=== PATIENT | female | born 1935 ===

== ENCOUNTER 2017-02-08 15:34 | Emergency (ER) | payer MEDICARE, MEDICAID ==
[2017-02-08 15:34] VITALS: BMI 26.6
[2017-02-08 15:47] VITALS: BP 176/71; PULSE 89; RESP 17; TEMP 100.1; O2SAT 94
[2017-02-08] MEDS ORDERED: Amoxicillin-Clav 875-125 mg Tab PO STA (16:19)
--- NOTE | 2017-02-08 16:34 | ED PDOC ---
Arrival/HPI - General Chief Complaint: Fever Time Seen by Provider: 02/08/17 15:47 Historian: Patient - History of Present Illness Narrative History of Present Illness (Text): 02/08/17 16:29 81yo female with PMhx of hypertension and left leg ulcer referred to ED by her Registered Pharmacy Technician. According to the patient she have had ulcer for years and started seeing a Registered Pharmacy Technician 3months ago. States she had a home visiting nurse today, who called her Registered Pharmacy Technician because of the redness of her leg and fever. She however declined pain to the leg and swelling. States she only came in because the visiting nurse wants her to come, but requesting to go home. Past Medical History - Provider Review Nursing Documentation Reviewed: Yes - Cardiac Hx Cardiac Arrhythmia: Yes (TACHYCARDIA) Hx Hypertension: Yes - Pulmonary Hx Respiratory Disorders: No - Neurological Hx Neurological Disorder: No - HEENT Hx HEENT Disorder: No - Renal Hx Renal Disorder: No - Endocrine/Metabolic Hx Endocrine Disorders: Yes Other/Comment: THYROID DISEASE - Hematological/Oncological Hx Blood Disorders: No - Integumentary Hx Cellulitis: Yes - Musculoskeletal/Rheumatological Hx Musculoskeletal Disorders: No - Gastrointestinal Hx Gastrointestinal Disorders: No - Genitourinary/Gynecological Hx Genitourinary Disorders: No - Psychiatric Hx Psychophysiologic Disorder: Yes Hx Anxiety: Yes Hx Substance Use: No - Surgical History Other/Comment: BX OF L FOOT Family/Social History - Physician Review Nursing Documentation Reviewed: Yes Family/Social History: Unknown Family HX Smoking Status: Never Smoked Hx Alcohol Use: No Hx Substance Use: No Allergies/Home Meds Allergies/Adverse Reactions: Allergies No Known Allergies Allergy (Verified 02/08/17 15:39) Home Medications: Home Meds Medication Instructions Recorded Confirmed ALPRAZolam [Xanax] 1 tab PO DAILY 02/08/17 02/08/17 Apremilast [Otezla] 30 mg PO DAILY 02/08/17 02/08/17 Aspirin [Ecotrin] 81 mg PO DAILY 02/08/17 02/08/17 Cholecalciferol (Vitamin D3) 1 tab PO DAILY 02/08/17 02/08/17 [Vitamin D3] Colesevelam HCl [Welchol] 1 tab PO DAILY 02/08/17 02/08/17 Furosemide [Lasix] 40 mg PO MWF 02/08/17 02/08/17 Gabapentin [Neurontin] 300 mg PO TID 02/08/17 02/08/17 Levothyroxine [Synthroid] 50 mcg PO DAILY 02/08/17 02/08/17 Metoprolol Tartrate [Lopressor] 100 mg PO DAILY 02/08/17 02/08/17 Mupirocin [Centany] 1 apful TOP BID 02/08/17 02/08/17 Valsartan/Hydrochlorothiazide 1 tab PO DAILY 02/08/17 02/08/17 [Valsartan-Hctz 160-25 mg Tab] Review of Systems - Physician Review All systems were reviewed & negative as marked: Yes - Review of Systems Constitutional: Fevers Eyes: Normal ENT: Normal Respiratory: Normal Cardiovascular: Normal Gastrointestinal: Normal Genitourinary Female: Normal Musculoskeletal: Normal, Other (Left leg redness) Skin: Normal Neurological: Normal Endocrine: Normal Hemo/Lymphatic: Normal Psychiatric: Normal Physical Exam Vital Signs Reviewed: Yes Vital Signs Temp Pulse Resp BP Pulse Ox 02/08/17 16:34 100.1 F H 02/08/17 15:45 100.1 F H 89 17 176/71 H 94 L Temperature: Febrile Blood Pressure: Normal Pulse: Regular Respiratory Rate: Normal Appearance: Positive for: Well-Appearing, Non-Toxic, Comfortable Pain Distress: None Mental Status: Positive for: Alert and Oriented X 3 - Systems Exam Head: Present: Atraumatic, Normocephalic Pupils: Present: PERRL Extroacular Muscles: Present: EOMI Conjunctiva: Present: Normal Mouth: Present: Moist Mucous Membranes Neck: Present: Normal Range of Motion Respiratory/Chest: Present: Clear to Auscultation, Good Air Exchange. No: Respiratory Distress, Accessory Muscle Use Cardiovascular: Present: Regular Rate and Rhythm, Normal S1, S2. No: Murmurs Abdomen: Present: Normal Bowel Sounds. No: Tenderness, Distention, Peritoneal Signs Back: Present: Normal Inspection Upper Extremity: Present: Normal Inspection. No: Cyanosis, Edema Lower Extremity: Present: Erythema (Noted on left lower leg prior to dressing). No: Edema (Unknown dressing in place), CALF TENDERNESS, NORMAL PULSES ( Unknown dressing in place), Tenderness, Swelling Neurological: Present: GCS=15, CN II-XII Intact, Speech Normal Skin: Present: Warm, Dry, Normal Color. No: Rashes Psychiatric: Present: Alert, Oriented x 3, Normal Insight, Normal Concentration Medical Decision Making ED Course and Treatment: 02/08/17 16:36 PT presented for stated history. she was febrile on presentation, but appear comfortable and nontoxic. On arrival, patient refused to change her clothes, stating she wants to go home. The who was by the bedside states he have a heart condition and do not wish to stay by himself. I explained the importance of patient getting IV antibiotic to treat her cellulitis. The risk of having osteomylitis which can lead to amputation of her leg.She states she understands this risk but still insists on signing out AMA. Stating she have appointment with Dr. Spear on Saturday. RN Ann interpreted for the patient. Case was DW Dr. Leon who was covering Dr. Spear. He states he spoke with the visiting nurse and referred the patient to the ED. [facility] patient was seen by Dr. Spear on 02/06/17 and given a prescription for antibiotics but she never filled it. He states if patient refused to be admitted she should be DC home with a rx of Augmentin. [facility] patient have appointment with Dr. Spear on Saturday. She also have a home visiting nurse that visits 3days a week. 02/08/17 16:50 I called in Augmentin 875mg for the patient to [facility]. - Medication Orders Current Medication Orders: Discontinued Medications Acetaminophen (Tylenol 325mg Tab) 650 mg PO STAT STA Stop: 02/08/17 16:20 Last Admin: 02/08/17 16:34 Dose: 650 mg Amoxicillin/Clavulanate Potassium (Augmentin 875 Mg-125 Mg Tab) 1 tab PO STAT STA PRN Reason: Protocol Stop: 02/08/17 16:20 Last Admin: 02/08/17 16:35 Dose: 1 tab Disposition/Present on Arrival - Present on Arrival Any Indicators Present on Arrival: No History of DVT/PE: No History of Uncontrolled Diabetes: No Urinary Catheter: No History of Decub. Ulcer: No History Surgical Site Infection Following: None - Disposition Have Diagnosis and Disposition been Completed?: Yes Diagnosis: Cellulitis Disposition: AGAINST MEDICAL ADVICE Disposition Time: 16:50 Condition: FAIR Discharge Instructions (ExitCare): Cellulitis (ED) Referrals: Dworkin,Estelita K, DPM [Primary Care Provider] - Follow up with primary
== END 2017-02-08 17:14 | disposition left against medical advice (07) ==
LOC: ED 15:34
DX: L03.116 Cellulitis of left lower limb (principal); I10 Essential (primary) hypertension

== ENCOUNTER 2017-02-11 16:19 | Inpatient (IN) | payer MEDICARE, MEDICAID ==
[2017-02-11 16:36] VITALS: BMI 33.6
[2017-02-11 17:08] LABS: ADD MANUAL DIFF? NO
[2017-02-11 17:16] LABS: BASO # 0.02 K/mm3 (0.0-2.0); BASO % 0.2 % (0.0-3.0); EOS # 0.1 (0.0-0.7); EOS % 1.2 % (1.5-5.0); GRAN # 7.27 (1.4-6.5); GRAN % 68.8 % (50.0-68.0); HEMATOCRIT 38.5 % (36.0-48.0); LYMPH # 2.3 (1.2-3.4); MEAN CELL VOLUME 87.5 fL (80.0-105.0); MEAN CORPUSCULAR HEMOGLOBIN 29.5 pg (25.0-35.0); MEAN CORPUSCULAR HGB CONC 33.8 g/dl (31.0-37.0); MEAN PLATELET VOLUME 8.5 fl (7.0-11.0); MONO # 0.8 (0.1-0.6); MONO % 7.8 % (1.0-6.0); PLATELET COUNT 353 10^3/uL (120.0-450.0); RED CELL DISTRIBUTION WIDTH 14.1 % (11.5-14.5); WHITE BLOOD COUNT 10.6 10^3/ul (4.5-11.0)
[2017-02-11 17:24] LABS: ALB/GLOB RATIO 0.9 (1.1-1.8); ALKALINE PHOSPHATASE 88 U/L (38-133); ALT/SGPT 32 U/L (7-56); AST/SGOT 35 U/L (15-39); BILIRUBIN,TOTAL 0.6 mg/dL (0.2-1.3); BLOOD UREA NITROGEN 23 mg/dL (7-21); CALCIUM 9.5 mg/dL (8.4-10.5); CARBON DIOXIDE 32 mmol/L (21-33); CHLORIDE 92 mmol/L (98-107); GFR AFRICAN-AMERICAN > 60; GLUCOSE,RANDOM 99 mg/dL (70-110); INR 0.97 (0.93-1.08); PARTIAL THROMBOPLASTIN TIME 30.5 Seconds (23.7-30.8); POTASSIUM 3.5 mmol/L (3.6-5.0); SODIUM 132 mmol/L (132-148); TOTAL PROTEIN 8.3 g/dL (5.8-8.3)
[2017-02-11] MEDS ORDERED: Vancomycin 1gm in NS 250ml 1 GM/250 ML BAG IVPB STA (17:38)
[2017-02-11] MEDS ORDERED: Magnesium Sulfate 1 gm in D5W 1 GM/100 ML BAG IVPB ONE (18:00)
[2017-02-11] MEDS ORDERED: Potassium Chloride 20 mEq ER Tab PO STA (18:00)
--- NOTE | 2017-02-11 19:30 | ED PDOC ---
Arrival/HPI - General Chief Complaint: Medical Clearance Time Seen by Provider: 02/11/17 16:45 Historian: Patient - History of Present Illness Narrative History of Present Illness (Text): 02/11/17 16:45 A 81 year old female sent into the emergency department for admission for left lower extremity cellulitis. Patient complaints of redness to the left lower extremity for the past few days. Patient was seen here on 02/08/17 but left against medical advice. She denies any fever, or other complaints at this time. Supplier Manager: Dr. Spear Time/Duration: Other Symptom Onset: Sudden Symptom Course: Unchanged Quality: Other Activities at Onset: Rest Context: Home Past Medical History - Provider Review Nursing Documentation Reviewed: Yes - Cardiac Hx Cardiac Arrhythmia: Yes (TACHYCARDIA) Hx Hypertension: Yes - Pulmonary Hx Respiratory Disorders: No - Neurological Hx Neurological Disorder: No - HEENT Hx HEENT Disorder: No - Renal Hx Renal Disorder: No - Endocrine/Metabolic Hx Endocrine Disorders: Yes Other/Comment: THYROID DISEASE - Hematological/Oncological Hx Blood Disorders: No - Integumentary Hx Cellulitis: Yes - Musculoskeletal/Rheumatological Hx Musculoskeletal Disorders: No - Gastrointestinal Hx Gastrointestinal Disorders: No - Genitourinary/Gynecological Hx Genitourinary Disorders: No - Psychiatric Hx Psychophysiologic Disorder: Yes Hx Anxiety: Yes Hx Substance Use: No - Surgical History Other/Comment: BX OF L FOOT Family/Social History - Physician Review Nursing Documentation Reviewed: Yes Family/Social History: Unknown Family HX Smoking Status: Never Smoked Hx Alcohol Use: No Hx Substance Use: No Allergies/Home Meds Allergies/Adverse Reactions: Allergies No Known Allergies Allergy (Verified 02/08/17 15:39) Home Medications: Home Meds Medication Instructions Recorded Confirmed ALPRAZolam [Xanax] 1 tab PO DAILY 02/08/17 02/12/17 Apremilast [Otezla] 30 mg PO DAILY 02/08/17 02/12/17 Aspirin [Ecotrin] 81 mg PO DAILY 02/08/17 02/12/17 Cholecalciferol (Vitamin D3) 1 tab PO DAILY 02/08/17 02/12/17 [Vitamin D3] Colesevelam HCl [Welchol] 1 tab PO DAILY 02/08/17 02/12/17 Furosemide [Lasix] 40 mg PO DAILY 02/08/17 02/12/17 Gabapentin [Neurontin] 300 mg PO TID 02/08/17 02/12/17 Levothyroxine [Synthroid] 50 mcg PO DAILY 02/08/17 02/12/17 Metoprolol Tartrate [Lopressor] 100 mg PO DAILY 02/08/17 02/12/17 Mupirocin [Centany] 1 apful TOP BID 02/08/17 02/12/17 Valsartan/Hydrochlorothiazide 1 tab PO DAILY 02/08/17 02/12/17 [Valsartan-Hctz 160-25 mg Tab] Physical Exam - Physical Exam Narrative Physical Exam (Text): - Review of Systems Constitutional: Normal. absent: Fatigue, Weight Change, Fevers Eyes: Normal ENT: Normal Respiratory: Normal absent: SOB, Cough, Sputum Cardiovascular: Normal absent: Chest pain, Palpitations, Syncope Gastrointestinal: Normal absent: Abdominal pain, Diarrhea, Nausea, Vomiting Genitourinary: Normal. absent: Dysuria, Frequency, Hematuria Musculoskeletal: Normal. absent: Arthralgias, Back Pain, Neck Pain Skin: redness to the left lower extremity. Neurological: Normal absent: Focal Weakness Endocrine: Normal Hemo/Lymphatic: Normal Psychiatric: Normal - Physical exam Patient appears age appropriate, speaking full sentences without difficulty - Systems Exam Head: Present: Atraumatic, Normocephalic Pupils: Present: PERRL Extraocular Muscles: Present: EOMI Conjunctiva: Present: Normal Mouth: Present: Moist Mucous Membranes Neck: Present: Normal Range of Motion. No: MIDLINE TENDERNESS, Paraspinal Tenderness Respiratory/Chest: Present: Clear to Auscultation, Good Air Exchange. No: Respiratory Distress, Accessory Muscle Use, Tachypneic Cardiovascular: Present: Regular Rate and Rhythm, Normal S1, S2, Peripheral Pulses Present. No: Murmurs Abdomen: Present: Normal Bowel Sounds, No: Tenderness, Peritoneal Signs, Rebound, Guarding, Distention Back: Present: Normal Inspection. No: Midline Tenderness, Paraspinal Tenderness Upper Extremity: Present: Normal Inspection. No: Cyanosis, Edema Lower Extremity: Present: poor healing ulcer to the left lower extremity with swelling and erythema. Area is warm to the touch but no tenderness. No: Edema Neurological: Present: GCS=15, Speech Normal, cranial nerves II through XII fully intact with no cerebellar abnormality, neuro-sensory fully intact. No focal neurological deficits. Skin: Present: Warm, Dry, Normal Color. No: Rashes Lymphatic: Present: OX3, NI, NC Psychiatric: Present: Alert, Oriented x 3, Normal Insight, Normal Concentration Vital Signs Reviewed: Yes Vital Signs Temp Pulse Resp BP Pulse Ox 02/11/17 18:57 75 18 146/68 95 02/11/17 16:36 97.7 F 77 16 154/78 H 96 Temperature: Afebrile Blood Pressure: Hypertensive Pulse: Regular Respiratory Rate: Normal Appearance: Positive for: Well-Appearing, Non-Toxic, Comfortable Pain Distress: None Mental Status: Positive for: Alert and Oriented X 3 Medical Decision Making ED Course and Treatment: 02/11/17 16:45 Impression: A 81 year old female with left lower extremity cellulitis sent in for admission. Differential Diagnosis include but are not limited to: cellulitis Plan: -- Chest X-ray -- Bilateral Lower extremity Duplex ultrasound -- Labs -- Reassess and disposition Progress Notes: 02/11/17 18:[address] Biggs, who is aware and accepts the patient under her services. I have discussed the results and plan with the patient, who expresses understanding. Patient given the opportunity to ask question, all questions were answered and there is agreement with the plan to be admitted to the hospital. 02/11/17 18:07 Case discussed with the oxygen equipment technician, who states duplex is negative for DVT bilaterally. - Critical Care Critical Care Minutes: 30 minutes - Lab Interpretations Lab Results: 02/11/17 16:58 02/11/17 16:58 Lab Results 02/11/17 16:58: Sodium 132, Potassium 3.5 L, Chloride 92 L, Carbon Dioxide 32, Anion Gap 12, BUN 23 H, Creatinine 0.9, Est GFR ( Amer) > 60, Est GFR ( Non-Af Amer) > 60, Random Glucose 99, Calcium 9.5, Total Bilirubin 0.6, AST 35, ALT 32, Alkaline Phosphatase 88, Total Protein 8.3, Albumin 4.0, Globulin 4.3, Albumin/Globulin Ratio 0.9 L 02/11/17 16:58: PT 10.5, INR 0.97, APTT 30.5 02/11/17 16:58: WBC 10.6, RBC 4.40, Hgb 13.0, Hct 38.5, MCV 87.5, MCH 29.5, MCHC 33.8, RDW 14.1, Plt Count 353, MPV 8.5, Gran % 68.8 H, Lymph % (Auto) 22.0 , [place] % (Auto) 7.8 H, Eos % (Auto) 1.2 L, Baso % (Auto) 0.2, Gran # 7.27 H, Lymph # 2.3, [place] # 0.8 H, Eos # 0.1, Baso # 0.02 I have reviewed the lab results: Yes - RAD Interpretation Radiology Orders: 02/11/17 16:47 CHEST PORTABLE [RAD] Stat 02/11/17 17:36 DUPLEX LOWER EXTRM VEIN BILAT [US] Stat - Medication Orders Current Medication Orders: Alprazolam (Xanax) 1 mg PO HS MARCELA PRN Reason: Protocol Stop: 02/19/17 10:01 Last Admin: 02/13/17 21:16 Dose: 1 mg Re-Assess: Reassess Psych Meds Document 02/13/17 22:16 FC (Rec: 02/13/17 22:19 FC [id number]) Reassess Psych Med Effective Ascorbic Acid (Vitamin C 500 Mg Tab) 500 mg PO DAILY MARCELA Last Admin: 02/13/17 10:33 Dose: 500 mg Aspirin (Ecotrin) 81 mg PO DAILY MARCELA Last Admin: 02/13/17 10:33 Dose: 81 mg Betamethasone/Clotrimazole (Lotrisone) 0 ml TOP BID MARCELA Last Admin: 02/13/17 18:59 Dose: 1 applic Cholecalciferol (Vitamin D) 2,000 iu PO DAILY MARCELA Last Admin: 02/13/17 10:33 Dose: 2,000 iu Enoxaparin Sodium (Lovenox) 40 mg SC DAILY MARCELA PRN Reason: Protocol Last Admin: 02/13/17 10:32 Dose: 40 mg Famotidine (Pepcid) 40 mg PO HS MARCELA Last Admin: 02/13/17 21:16 Dose: 40 mg Furosemide (Lasix) 40 mg PO DAILY MARCELA Last Admin: 02/13/17 10:34 Dose: 40 mg Gabapentin (Neurontin) 300 mg PO TID MARCELA PRN Reason: Protocol Last Admin: 02/13/17 18:59 Dose: 300 mg Re-Assess: Reassess Psych Meds Document 02/13/17 19:59 FC (Rec: 02/13/17 21:15 [id number]) Reassess Psych Med Effective Hydrochlorothiazide (Hydrodiuril) 25 mg PO DAILY [facility] Last Admin: 02/13/17 10:34 Dose: 25 mg Vancomycin HCl (Vancomycin 1gm) 1 gm in 250 mls @ 167 mls/hr IVPB Q12H MARCELA PRN Reason: Protocol Stop: 02/20/17 22:31 Last Admin: 02/13/17 21:31 Dose: 167 mls/hr Piperacillin Sod/Tazobactam Sod (Zosyn 3.375 In Ns 100ml) 100 mls @ 200 mls/hr IVPB Q6 MARCELA PRN Reason: Protocol Stop: 02/21/17 00:01 Last Admin: 02/14/17 05:40 Dose: 200 mls/hr Levothyroxine Sodium (Synthroid) 50 mcg PO DAILY [facility] Last Admin: 02/13/17 10:33 Dose: 50 mcg Losartan Potassium (Cozaar) 100 mg PO DAILY [facility] Last Admin: 02/13/17 10:34 Dose: 100 mg Metoprolol Tartrate (Lopressor) 100 mg PO BRK [facility] Last Admin: 02/13/17 10:33 Dose: 100 mg Multivitamins/Minerals (Therapeutic-M Tab) 1 tab PO DAILY [facility] Last Admin: 02/13/17 10:33 Dose: 1 tab Non-Formulary Medication (Apremilast [Otezla]) 30 mg PO DAILY [facility] Last Admin: 02/13/17 09:22 Dose: Non-Formulary Medication (Colesevelam Hcl [Welchol]) 1 tab PO DAILY [facility] Last Admin: 02/13/17 09:23 Dose: Silver Sulfadiazine (Silvadene 1% 20 Gm) 0 ea TOP DAILY [facility] Last Admin: 02/13/17 10:35 Dose: Zinc Sulfate (Zinc Sulfate 220 Mg Cap) 220 mg PO DAILY [facility] Last Admin: 02/13/17 10:33 Dose: 220 mg Discontinued Medications Acetaminophen (Tylenol 325mg Tab) 650 mg PO STAT STA Stop: 02/12/17 03:17 Last Admin: 02/12/17 03:28 Dose: Acetaminophen (Tylenol 325mg Tab) 650 mg PO STAT STA Stop: 02/12/17 03:17 Last Admin: 02/12/17 03:30 Dose: 650 mg Re-Assess: MAR Pain/Vitals Document 02/12/17 04:30 ZITA (Rec: 02/12/17 06:12 [email or web address] [id number]) Pain Reassessment Is This A Pain ReAssessment? Yes Sleep Is patient sleeping during reassessment? Yes Pain Scale Used Pain Scale Used Numeric Alprazolam (Xanax) 1 mg PO DAILY MARCELA PRN Reason: Protocol Stop: 02/19/17 10:01 Last Admin: 02/13/17 10:33 Dose: 1 mg Re-Assess: Reassess Psych Meds Document 02/13/17 11:33 (Rec: 02/13/17 15:20 [id number]) Reassess Psych Med Effective Vancomycin HCl (Vancomycin 1gm) 1 gm in 250 mls @ 133.333 mls/hr IVPB STAT STA PRN Reason: Protocol Stop: 02/11/17 19:30 Last Admin: 02/11/17 18:38 Dose: 133.333 mls/hr Magnesium Sulfate/Dextrose (Magnesium Sulfate 1 Gm/100 Ml D5w) 1 gm in 100 mls @ 100 mls/hr IVPB ONCE ONE Stop: 02/11/17 18:59 Last Admin: 02/11/17 20:13 Dose: 100 mls/hr Pneumococcal Polyvalent Vaccine (Pneumovax 23 Vaccine) 0.5 ml IM .ONCE ONE Stop: 02/11/17 22:25 Potassium Chloride (K-Dur 20 Meq Er Tab) 40 meq PO STAT STA Stop: 02/11/17 18:01 Last Admin: 02/11/17 18:38 Dose: 40 meq - Scribe Statement The provider has reviewed the documentation as recorded by the Staci Garza Provider Scribe Attestation: All medical record entries made by the Staci were at my direction and personally dictated by me. I have reviewed the chart and agree that the record accurately reflects my personal performance of the history, physical exam, medical decision making, and the department course for this patient. I have also personally directed, reviewed, and agree with the discharge instructions and disposition. Disposition/Present on Arrival - Present on Arrival Any Indicators Present on Arrival: No History of DVT/PE: No History of Uncontrolled Diabetes: No Urinary Catheter: No History of Decub. Ulcer: No History Surgical Site Infection Following: None - Disposition Have Diagnosis and Disposition been Completed?: Yes Diagnosis: Cellulitis Disposition: HOSPITALIZED Disposition Time: 18:00 Patient Plan: Admission Condition: FAIR
[2017-02-11] MEDS ORDERED: Pneumococcal 23-Valent Vaccine IM ONE (22:24)
[2017-02-12] MEDS: Vancomycin 1gm in NS 250ml 1 GM/250 ML BAG IVPB SCH ×3 (02:58→21:33)
[2017-02-12] MEDS: Piperacillin/Tazobact 3.375 gm 100 ML IVPB SCH ×5 (03:04→23:10)
--- NOTE | 2017-02-12 06:53 | HP ---
CHIEF COMPLAINT: Swelling of the leg, red and warm. HISTORY OF PRESENT ILLNESS: The patient is an 81-year-old female with a history of hypertension, obesity, poor circulation, sent to the Emergency Room by Dr. Spear for cellulitis of the lower extremity. The patient complains of redness of the left lower extremity for the past few days. The patient was seen by Dr. Spear on 02/08/17, but she left against medical advice. She denies any fever, chills complaints, but today she came again and was admitted in ER by Dr. Spear. PAST MEDICAL HISTORY: Tachycardia, hypertension, obesity, hypothyroidism, cellulitis of the lower extremities, anxiety. FAMILY HISTORY: Father and mother noncontributory. HABITS: No smoking, no drugs, no ethanol. ALLERGIES: The patient is not allergic with any medications. HOME MEDICATIONS: Xanax, Ecotrin, vitamin D, Welchol, Lasix, Neurontin, Synthroid, Lopressor, valsartan. REVIEW OF SYSTEMS: The patient is seen and examined in the Emergency Room. was sitting on the bedside. He was anxious, but the patient looks better. No nausea, vomiting, or diarrhea. No hematuria or hematochezia. No swelling of the legs, but having leg red and warm. No fever, no chills. PHYSICAL EXAMINATION: VITAL SIGNS: Temperature 97.7, pulse 77, blood pressure 150/78, respiratory rate 16, pulse oximetry 99. HEENT: Head normocephalic, atraumatic. Eyes: PERRLA. Extraocular muscles intact. Conjunctivae clear. Nose patent. Mucous membranes moist. NECK: Supple. No carotid bruits, JVD or thyromegaly. CHEST: Bilaterally symmetrical. HEART: S1, S2 positive. LUNGS: Clear to auscultation. ABDOMEN: Soft. Bowel sounds present. No organomegaly. EXTREMITIES: No edema, no cyanosis upper extremities. Lower extremity red, war , looks like infected. LABORATORY DATA: White blood cells 10.6, hemoglobin 13.0, hematocrit 38.5, platelets 356. Sodium 132, potassium 3.5, BUN 13, creatinine 0.9, glucose 99. ASSESSMENT AND PLAN: The patient is an 81-year-old lady with hypokalemia, replaced; dehydration, IV fluids given. She is admitted for cellulitis of the leg, 2+ Got vancomycin. magnesium sulfate, dextrose, K-Dur. The patient is an 81-year-old lady with a history of hypertension, obesity, hyperthyroidism , came with cellulitis of the leg with Dr. Spear's office. Her office sent her to the Emergency Room. History of anxiety, psychological disorder. Antibiotics started. Doppler of the leg done. Results are pending. Discussion done with the patient and the patient's . Continue antibiotics. Infectious disease consult also called. Repeat labs. We will follow up. June Biggs MD cc: [id number] TT: 02/12/2017 06:51:46 [email or web address] [email or web address]
--- NOTE | 2017-02-12 07:20 | RAD ---
HISTORY: cough COMPARISON: No prior. FINDINGS: LUNGS: No active pulmonary disease. PLEURA: No significant pleural effusion identified, no pneumothorax apparent. CARDIOVASCULAR: Widening of the mediastinum which could be due to unfolded ectatic aortic arch. The cardiac silhouette is mildly enlarged. OSSEOUS STRUCTURES: No significant abnormalities. VISUALIZED UPPER ABDOMEN: Normal. OTHER FINDINGS: None. IMPRESSION: Baseline portable chest x-ray. No radiographic evidence of pneumonia. Mild cardiomegaly and mild pulmonary vascular congestion. Widening of the mediastinum.
--- NOTE | 2017-02-12 09:43 | US ---
HISTORY: Leg pain and swelling. Evaluate for DVT PHYSICIAN(S): Shekhar Dorantes MD. TECHNIQUE: Duplex sonography and color-flow Doppler with graded compression were used to evaluate the deep venous systems of both lower extremities. FINDINGS: The visualized deep venous systems of both lower extremities are sonographically normal and compressible. Normal wave forms and augmentation are seen. There is no sonographic evidence for deep venous thrombosis in the visualized segments of both lower extremities. There is a 0.9 x 5.8 cm fluid collection in the left popliteal fossa, consistent with a Wen's cyst IMPRESSION: No sonographic evidence for deep venous thrombosis in the visualized segments of both lower extremities.
[2017-02-12] MEDS ORDERED: cefTRIAXone 1 gm 1 GM/100 ML BAG IVPB SCH (10:00)
[2017-02-12 10:01] LABS: HEMATOCRIT 37.5 % (36.0-48.0); MEAN CELL VOLUME 88.4 fL (80.0-105.0); MEAN CORPUSCULAR HEMOGLOBIN 29.7 pg (25.0-35.0); MEAN CORPUSCULAR HGB CONC 33.6 g/dl (31.0-37.0); MEAN PLATELET VOLUME 8.4 fl (7.0-11.0); RED CELL DISTRIBUTION WIDTH 14.4 % (11.5-14.5); WHITE BLOOD COUNT 8.7 10^3/ul (4.5-11.0)
[2017-02-12] MEDS: APREMILAST 30 MG PO SCH (10:06)
[2017-02-12] MEDS: COLESEVELAM HCL PO SCH (10:07)
[2017-02-12 10:10] LABS: ALKALINE PHOSPHATASE 77 U/L (38-133); ALT/SGPT 30 U/L (7-56); AST/SGOT 25 U/L (15-39); BILIRUBIN,TOTAL 0.5 mg/dL (0.2-1.3); BLOOD UREA NITROGEN 15 mg/dL (7-21); CALCIUM 9.2 mg/dL (8.4-10.5); CARBON DIOXIDE 30 mmol/L (21-33); CHLORIDE 98 mmol/L (95-110); GFR AFRICAN-AMERICAN > 60; GLUCOSE,RANDOM 181 mg/dL (70-110); SODIUM 135 mmol/L (132-148); TOTAL PROTEIN 7.1 g/dL (5.8-8.3)
[2017-02-12] MEDS: Levothyroxine 50 MCG TAB PO SCH (11:05)
--- NOTE | 2017-02-12 15:52 | CON ---
DATE: 02/12/2017 An 81-year-old female who is a recent patient at the wound care center seen at bedside for consultation, evaluation and management of cellulitis to both lower legs. The patient states she has had a wound on her left lower leg for quite some time and does not know exactly for how long and states that she recently banged her right lower leg which resulted in a wound. The patient was told to go to the OR by Dr. Spear on 02/08 but she did not go and then again on 02/10, the patient's visiting nurse called the office and stated that the patient was febrile and her left lower leg was edematous and erythematous and she had a fever of 100.7. I advised them to go immediately to the Emergency Room as that point and we would follow up on Saturday. However, I got a call a few hours later from the Emergency Room doctor stating that patient was there, but refuses to be admitted against medical advice. The patient was seen by Dr. Spear yesterday at the wound center and she was told that she must go into the hospital for IV antibiotics for her lower extremity cellulitis and reluctantly agreed. MEDICAL HISTORY: Significant for hypothyroidism, morbid obesity, tachycardia, anxiety, and essential hypertension. ALLERGIES: The patient has no known drug allergies. CURRENT MEDICATIONS: All medications are noted in MAR. SOCIAL HISTORY: The patient is , lives with her . She denies drinking, smoking or any illicit drug use. FAMILY HISTORY: Unremarkable. VITAL SIGNS: Reveal a temperature of 97.9, pulse rate of 66, blood pressure of 178/78, respiratory rate of 20. LABORATORY FINDINGS: Reveal a white count of 8.7 down from 10.6 yesterday. Hemoglobin of 12.6, hematocrit of 37.5, platelet count of 307 and an elevated ESR of 66. There is no microbiology report at this time. Venous Dopplers taken yesterday reveal no sonographic evidence for deep vein thrombosis of either lower extremity. OBJECTIVE: Nonpalpable pedal pulses noted bilaterally. Absent pedal hair growth noted bilaterally. Lower extremity skin presents thin, shiny and discolored bilaterally. Protective sensation is decreased using 5.07 gram monofilament wire testing bilaterally. There is noted to be a full thickness ulceration on the medial aspect of the central left lower leg. The base of the ulcer is a mixture of granular and fibrotic tissue. There is noted to be serous drainage. The wound does not probe to tendon or bone. There is no purulence to suggest underlying abscess formation. The entire lower leg is edematous and erythematous, which according to the patient and her has decreased significantly over the last 24 hours. She was reporting some discomfort in her gastrocsoleus complex upon palpation, but DVT has been ruled out. Right lower leg presents with abrasions at the anterior lower aspect of the lower leg. They are granular in nature. There is minimal serous drainage. None of the wounds probe to tendon or bone and there is no abscess formation noted. ASSESSMENT: Bilateral lower extremity cellulitis with full thickness ulceration to the left lower leg. PLAN: Ultrasound taken yesterday rules out deep vein thrombosis of the left lower extremity. Wounds were cleansed with normal sterile saline. Application of Xeroform and a dry sterile dressing was applied. We will take culture. The patient is currently on Zosyn and vanco. Recommend immediate infectious disease consult. Culture and sensitivity will be taken and submitted for I and D evaluation. The patient will be seen and followed daily. Dom Melendrez DPM cc: [id number] TT: 02/12/2017 15:50:48 Confirmation # [id number] Dictation # [id number] BENEDICT
--- NOTE | 2017-02-12 18:11 | CP.PCM.CON ---
History of Present Illness - History of Present Illness History of Present Illness: 81 year old female with PMH of HTN, obesity, hypothyroidism, history of cellulitis of the lower extremities, anxiety disorder came in because of swelling and redness of her left lower extremity after several days. She had seen Dr. Spear as an outpatient and the patient was told to get admitted for IV antibiotics. Apparently she scratched her leg on an unrecalled surface and sustained a wound. She denies animal contacts, no wading in water or swimming, no walking barefoot. She also denies fever or chills, no nausea or vomiting, no chest pain, no SOB, no headache or dizziness, no chest pain, no diarrhea, no dysuria. Infectious diseases consult is requested to further evaluate and manage. Review of Systems - Review of Systems All systems: reviewed and no additional remarkable complaints except (as per HPI ) Past Patient History - Past Social History Smoking Status: Never Smoked - CARDIAC Hx Hypertension: Yes - PULMONARY Hx Respiratory Disorders: No - NEUROLOGICAL Hx Neurological Disorder: No - HEENT Hx HEENT Problems: No - RENAL Hx Chronic Kidney Disease: No - ENDOCRINE/METABOLIC Hx Endocrine Disorders: Yes Other/Comment: THYROID DISEASE - HEMATOLOGICAL/ONCOLOGICAL Hx Blood Disorders: No - INTEGUMENTARY Hx Cellulitis: Yes - MUSCULOSKELETAL/RHEUMATOLOGICAL Hx Falls: Yes - GASTROINTESTINAL Hx Gastrointestinal Disorders: No - GENITOURINARY/GYNECOLOGICAL Hx Genitourinary Disorders: No - PSYCHIATRIC Hx Psychophysiologic Disorder: Yes Hx Anxiety: Yes Hx Substance Use: No - SURGICAL HISTORY Other/Comment: BX OF L FOOT Meds Allergies/Adverse Reactions: Allergies Allergy/AdvReac Type Severity Reaction Status Date / Time No Known Allergies Allergy Verified 02/08/17 15:39 - Medications Medications: Current Medications Alprazolam (Xanax) 1 mg PO DAILY [facility] PRN Reason: Protocol Stop: 02/19/17 10:01 Last Admin: 02/12/17 11:06 Dose: 1 mg Aspirin (Ecotrin) 81 mg PO DAILY [facility] Last Admin: 02/12/17 11:05 Dose: 81 mg Cholecalciferol (Vitamin D) 2,000 iu PO DAILY [facility] Last Admin: 02/12/17 11:05 Dose: 2,000 iu Furosemide (Lasix) 40 mg PO DAILY [facility] Last Admin: 02/12/17 16:25 Dose: Not Given Gabapentin (Neurontin) 300 mg PO TID [facility] PRN Reason: Protocol Last Admin: 02/12/17 14:27 Dose: 300 mg Hydrochlorothiazide (Hydrodiuril) 25 mg PO DAILY [facility] Last Admin: 02/12/17 11:05 Dose: 25 mg Vancomycin HCl (Vancomycin 1gm) 1 gm in 250 mls @ 167 mls/hr IVPB Q12H [facility] PRN Reason: Protocol Stop: 02/20/17 22:31 Last Admin: 02/12/17 11:07 Dose: 167 mls/hr Piperacillin Sod/Tazobactam Sod (Zosyn 3.375 In Ns 100ml) 100 mls @ 200 mls/hr IVPB Q6 [facility] PRN Reason: Protocol Stop: 02/21/17 00:01 Last Admin: 02/12/17 14:27 Dose: 200 mls/hr Levothyroxine Sodium (Synthroid) 50 mcg PO DAILY [facility] Last Admin: 02/12/17 11:05 Dose: 50 mcg Losartan Potassium (Cozaar) 100 mg PO DAILY [facility] Last Admin: 02/12/17 11:07 Dose: 100 mg Metoprolol Tartrate (Lopressor) 100 mg PO BRK [facility] Last Admin: 02/12/17 11:04 Dose: 100 mg Non-Formulary Medication (Apremilast [Otezla]) 30 mg PO DAILY [facility] Last Admin: 02/12/17 10:06 Dose: Not Given Non-Formulary Medication (Colesevelam Hcl [Welchol]) 1 tab PO DAILY [facility] Last Admin: 02/12/17 10:07 Dose: Not Given Physical Exam - Constitutional Appears: Non-toxic, No Acute Distress - Head Exam Head Exam: NORMAL INSPECTION - ENT Exam ENT Exam: Mucous Membranes Moist - Neck Exam Neck exam: Negative for: Lymphadenopathy, Meningismus - Respiratory Exam Respiratory Exam: Decreased Breath Sounds - Cardiovascular Exam Cardiovascular Exam: +S1, +S2 - GI/Abdominal Exam GI & Abdominal Exam: Soft. absent: Tenderness - Extremities Exam Additional comments: left leg with dressings in place Results - Vital Signs Recent Vital Signs: Last Vital Signs Temp 97.9 F 02/12/17 06:00 Pulse 66 02/12/17 11:04 Resp 20 02/12/17 06:00 BP 178/76 H 02/12/17 11:04 Pulse Ox 96 02/12/17 06:00 - Labs Result Diagrams: 02/12/17 09:50 02/12/17 09:50 Labs: Laboratory Results - last 24 hr 02/12/17 02/12/17 02/12/17 09:50 09:50 09:50 WBC 8.7 RBC 4.24 Hgb 12.6 Hct 37.5 MCV 88.4 MCH 29.7 MCHC 33.6 RDW 14.4 Plt Count 307 MPV 8.4 ESR 66 H Sodium 135 Potassium 4.0 Chloride 98 Carbon Dioxide 30 Anion Gap 11 BUN 15 Creatinine 0.8 Est GFR ( Amer) > 60 Est GFR (Non-Af Amer) > 60 Random Glucose 181 H Calcium 9.2 Total Bilirubin 0.5 AST 25 ALT 30 Alkaline Phosphatase 77 NT-Pro-B Natriuret Pep Total Protein 7.1 Albumin 3.5 Globulin 3.6 Albumin/Globulin Ratio 1.0 L Procalcitonin < 0.05 L 02/12/17 10:45 WBC RBC Hgb Hct MCV MCH MCHC RDW Plt Count MPV ESR Sodium Potassium Chloride Carbon Dioxide Anion Gap BUN Creatinine Est GFR ( Amer) Est GFR (Non-Af Amer) Random Glucose Calcium Total Bilirubin AST ALT Alkaline Phosphatase NT-Pro-B Natriuret Pep 561 H Total Protein Albumin Globulin Albumin/Globulin Ratio Procalcitonin Assessment & Plan - Assessment and Plan (Free Text) Plan: Assessment Left leg cellulitis HTN obesity hypothyroidism history of cellulitis of the lower extremities anxiety disorder Plan Started on Vancomycin and Zosyn (since on previous cultures in 2016 showed Pseudomonas) pending blood and wound cx; follow up results of the ultrasound of the legs Will monitor clinically
--- NOTE | 2017-02-12 22:04 | PN ---
DATE: 02/12/2017 SUBJECTIVE: The patient was seen and examined on the bedside, having dinner. Legs are a little bit better. Someone is sitting on the bedside also, having dinner also. No fever, no chills. No nausea or vomiting. No chest pain, no shortness of breath. No headache, no dizziness. No dysuria. PHYSICAL EXAMINATION: VITAL SIGNS: Temperature 98.2, pulse 62, blood pressure 138/79, respiratory rate 18. HEENT: Head normocephalic, atraumatic. Eyes: PERRLA. Extraocular muscles intact. Conjunctivae are clear. Nose patent. NECK: Supple. No carotid bruit, JVD or thyromegaly. CHEST: Bilaterally symmetrical. HEART: S1, S2 positive. LUNGS: Clear to auscultation. ABDOMEN: Soft. Bowel sounds positive. No organomegaly. EXTREMITIES: Upper extremities, no edema and no cyanosis. Lower extremities, red, warm, has dressing. MEDICATIONS: Otezla, Welchol, Cozaar, Ecotrin, hydrochlorothiazide, Lasix, Lopressor, Neurontin, Synthroid, vancomycin, vitamin D, Zosyn. LABORATORY DATA: White blood cell 8.2, hemoglobin 12.6, hematocrit 37.5, platelets 307. Sodium 135, potassium 4.0, BUN 15, creatinine 0.5, glucose 181. BNP 561. Prolactin less than 0.05. ASSESSMENT AND PLAN: The patient is an 81-year-old female with a history of hypokalemia, improved, hyperglycemia. X-ray of tibia-fibula done. History of hypertension, obesity, hypothyroidism, cellulitis of the lower extremity, anxiety disorder, obesity, has left lower extremity severe cellulitis, seeing Dr. Spear as outpatient. Failed outpatient treatment, p.o. antibiotics was not working. IV started. The patient on vancomycin and Zosyn because previous cultures in 12/2016 showed pseudomonas. Pending blood cultures at this time and wound cultures at this time. Extremity ultrasound is done. Extremity ultrasound is appreciated. Gastrointestinal and deep venous thrombosis prophylaxis. Appreciated Dr. johnson. Gastrointestinal and deep venous thrombosis prophylaxis. Repeat labs. We will follow up. June Biggs MD cc: [id number] TT: 02/12/2017 22:04:00 Confirmation # [id number] Dictation # [id number] fabienne BENEDICT
[2017-02-13] MEDS: Piperacillin/Tazobact 3.375 gm 100 ML IVPB SCH ×4 (05:30→23:35)
[2017-02-13] MEDS: APREMILAST 30 MG PO SCH (09:22)
[2017-02-13] MEDS: COLESEVELAM HCL PO SCH (09:23)
--- NOTE | 2017-02-13 09:31 | RAD ---
PROCEDURE: Radiographs of the left tibia and fibula. HISTORY: left lowerleg ulcer COMPARISON: None available. TECHNIQUE: Frontal and lateral views obtained. FINDINGS: BONES: No fracture or destructive lesion. JOINT SPACES: Unremarkable. OTHER FINDINGS: None. IMPRESSION: Unremarkable radiographs of the left tibia and fibula.
[2017-02-13 10:04] LABS: ALKALINE PHOSPHATASE 64 U/L (38-133); ALT/SGPT 26 U/L (7-56); AST/SGOT 24 U/L (15-39); BILIRUBIN,TOTAL 0.6 mg/dL (0.2-1.3); BLOOD UREA NITROGEN 18 mg/dL (7-21); CALCIUM 9.1 mg/dL (8.4-10.5); CARBON DIOXIDE 31 mmol/L (21-33); CHLORIDE 99 mmol/L (98-107); GFR AFRICAN-AMERICAN > 60; GLUCOSE,RANDOM 141 mg/dL (70-110); POTASSIUM 3.8 mmol/L (3.6-5.0); SODIUM 136 mmol/L (132-148); TOTAL PROTEIN 6.9 g/dL (5.8-8.3)
[2017-02-13] MEDS: Enoxaparin 40 mg Syringe SC SCH (10:32)
[2017-02-13] MEDS: Levothyroxine 50 MCG TAB PO SCH (10:33)
[2017-02-13] MEDS: Multivitamin With Minerals Tab PO SCH (10:33)
[2017-02-13] MEDS: Clotrimazole/Betamethasone Lotion(30 ml) TOP SCH ×2 (10:34→18:59)
[2017-02-13] MEDS: Silver Sulfadiazine 1% Cream (20 gm) TOP SCH (10:35)
[2017-02-13] MEDS: Vancomycin 1gm in NS 250ml 1 GM/250 ML BAG IVPB SCH ×2 (11:22→21:31)
--- NOTE | 2017-02-13 15:48 | CP.PCM.PN ---
Subjective - Date & Time of Evaluation Date of Evaluation: 02/13/17 Time of Evaluation: 10:55 - Subjective Subjective: Comfortable on a chair, no fevers overnight, had her dressings over her legs changed this morning. Objective - Vital Signs/Intake and Output Vital Signs (last 24 hours): Temp Pulse Resp BP Pulse Ox 97.7 F 65 20 151/81 H 99 02/13/17 06:00 02/13/17 10:33 02/13/17 06:00 02/13/17 10:34 02/13/17 06:00 Intake and Output: 02/13/17 02/13/17 06:59 18:59 Intake Total 1110 720 Balance 1110 720 - Medications Medications: Current Medications Alprazolam (Xanax) 1 mg PO DAILY [facility] PRN Reason: Protocol Stop: 02/19/17 10:01 Last Admin: 02/13/17 10:33 Dose: 1 mg Ascorbic Acid (Vitamin C 500 Mg Tab) 500 mg PO DAILY [facility] Last Admin: 02/13/17 10:33 Dose: 500 mg Aspirin (Ecotrin) 81 mg PO DAILY [facility] Last Admin: 02/13/17 10:33 Dose: 81 mg Betamethasone/Clotrimazole (Lotrisone) 0 ml TOP BID [facility] Last Admin: 02/13/17 10:34 Dose: Not Given Cholecalciferol (Vitamin D) 2,000 iu PO DAILY [facility] Last Admin: 02/13/17 10:33 Dose: 2,000 iu Enoxaparin Sodium (Lovenox) 40 mg SC DAILY [facility] PRN Reason: Protocol Last Admin: 02/13/17 10:32 Dose: 40 mg Famotidine (Pepcid) 40 mg PO HS [facility] Last Admin: 02/12/17 23:10 Dose: 40 mg Furosemide (Lasix) 40 mg PO DAILY [facility] Last Admin: 02/13/17 10:34 Dose: 40 mg Gabapentin (Neurontin) 300 mg PO TID [facility] PRN Reason: Protocol Last Admin: 02/13/17 15:24 Dose: 300 mg Hydrochlorothiazide (Hydrodiuril) 25 mg PO DAILY [facility] Last Admin: 02/13/17 10:34 Dose: 25 mg Vancomycin HCl (Vancomycin 1gm) 1 gm in 250 mls @ 167 mls/hr IVPB Q12H [facility] PRN Reason: Protocol Stop: 02/20/17 22:31 Last Admin: 02/13/17 11:22 Dose: 167 mls/hr Piperacillin Sod/Tazobactam Sod (Zosyn 3.375 In Ns 100ml) 100 mls @ 200 mls/hr IVPB Q6 [facility] PRN Reason: Protocol Stop: 02/21/17 00:01 Last Admin: 02/13/17 12:46 Dose: 200 mls/hr Levothyroxine Sodium (Synthroid) 50 mcg PO DAILY [facility] Last Admin: 02/13/17 10:33 Dose: 50 mcg Losartan Potassium (Cozaar) 100 mg PO DAILY [facility] Last Admin: 02/13/17 10:34 Dose: 100 mg Metoprolol Tartrate (Lopressor) 100 mg PO BRK [facility] Last Admin: 02/13/17 10:33 Dose: 100 mg Multivitamins/Minerals (Therapeutic-M Tab) 1 tab PO DAILY [facility] Last Admin: 02/13/17 10:33 Dose: 1 tab Non-Formulary Medication (Apremilast [Otezla]) 30 mg PO DAILY [facility] Last Admin: 02/13/17 09:22 Dose: Not Given Non-Formulary Medication (Colesevelam Hcl [Welchol]) 1 tab PO DAILY [facility] Last Admin: 02/13/17 09:23 Dose: Not Given Silver Sulfadiazine (Silvadene 1% 20 Gm) 0 ea TOP DAILY [facility] Last Admin: 02/13/17 10:35 Dose: Not Given Zinc Sulfate (Zinc Sulfate 220 Mg Cap) 220 mg PO DAILY [facility] Last Admin: 02/13/17 10:33 Dose: 220 mg - Labs Labs: 02/12/17 09:50 02/13/17 09:30 PT 10.5 Seconds (9.9-11.8) 02/11/17 16:58 INR 0.97 (0.93-1.08) 02/11/17 16:58 APTT 30.5 Seconds (23.7-30.8) 02/11/17 16:58 - Constitutional Appears: Non-toxic, No Acute Distress - Head Exam Head Exam: NORMAL INSPECTION - Respiratory Exam Respiratory Exam: Decreased Breath Sounds - Cardiovascular Exam Cardiovascular Exam: +S1, +S2 - GI/Abdominal Exam GI & Abdominal Exam: Soft. absent: Tenderness - Extremities Exam Additional comments: both legs with dry dressings in place Assessment and Plan - Assessment and Plan (Free Text) Plan: Assessment Left leg cellulitis, slowly improving HTN obesity hypothyroidism history of cellulitis of the lower extremities anxiety disorder Plan continue Vancomycin and Zosyn (since on previous cultures in 2016 showed Pseudomonas) day 2; blood and wound cx from 02/12 are negative but repeat wound cx were sent by Podiatry today; ultrasound of the legs does not show DVT Will continue to monitor clinically
--- NOTE | 2017-02-13 16:01 | PN ---
DATE: 02/13/2017 This is an 81-year-old female known to me, sent in by me to the acute care for cellulitis of the left leg. The patient has a history of an ulceration to the medial aspect of the left leg. 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 She also has a history of hypertension and hypothyroidism. The patient denies any fever or chills. She had come in last week to the wound care center at which time the leg was slightly reddened, and we gave her a prescription for Augmentin, which she did not f ill. She was then sent back to the Emergency Room last Saturday by the visiting nurse for increasing alina butterfield, and the patient signed out AMA at that time, although she did take the prescription for Au gmentin and fill it. Apparently, she hit her right leg on the transportation van being transported b ack and forth from the Emergency Room. The patient presented Saturday to the wound care center, and it was noted even though she was taking Augmentin that the leg was becoming more cellulitic. It was cellulitic from the toes up to the kne e. There was evidence of the psoriasis, and there was a wound on the medial aspect. There was no pu s coming from the wound, but the leg was very red and hot. VITAL SIGNS: Today were noted to be a temperature of 97.7. Blood pressure is 151/81, and the respir atory was 20. Ox sat is 99%. MEDICATIONS: Reviewed on the DEC, and she is part presently on vancomycin and Zosyn, as per infectio us disease. LABORATORY DATA: The patient's labs were reviewed. Her white blood cell count was 10.6 upon admiss ion. It is 8.7, and her ESR is 66. Chemistry shows BUN and creatinine are normal at 15 and 0.8. He r BMP was 561. Glucose was 181. The rest of the SMA was grossly within normal limits. Coagulation: The patient is on Lovenox. The patient's microbiology, a culture apparently was taken yesterday, and that is not in the computer . She did have a culture on 01/23. The last culture was for pseudomonas. The patient's lower extremities were evaluated. She has +3 edema to the left leg with cellulitis. C ellulitis is improved since she has been hospitalized since she has been seen. However, it is still very hot and swollen, especially around the area of the mid-calf to the foot. There is no fluctuance . The leg is indurated, and the wound has no sinus tract to bone. The right leg has ulceration on t he anterior lizama that was still bleeding when I saw her on Saturday. However, the bleeding has stopped , and there is no gross edema to that leg, but there is a greater than 2 cm cellulitis around that wo und. ASSESSMENT: Cellulitis with an infection to her left lower extremity and a locally infected wound on her right lower extremity. PLAN OF TREATMENT: The patient was started on multivitamin, vitamin C, and seen for wound healing. She was also started on Silvadene with daily dressings to her wound and compression on the left, IV a ntibiotics, as per infectious disease, and we are awaiting wound culture. Estelita Spear DPM cc: [id number] TT: 02/13/2017 09:20:45 Confirmation # [id number] Dictation # [id number] reena 02/13/2017 09:20:33
--- NOTE | 2017-02-13 21:53 | PN ---
DATE: 02/13/2017 SUBJECTIVE: The patient was seen and examined on the bedside, sitting on the chair. was sit ting on the bedside also. The patient was sitting with dangling legs, then I put her legs on another chair to elevate the legs. She was sleepy, arousable. Legs are getting a little bit better. No na usea, vomiting, or diarrhea. No hematuria or hematochezia. No shortness of breath. No fever, no ch ills. PHYSICAL EXAMINATION: VITAL SIGNS: Temperature 97.2, blood pressure 148/84, respiratory rate 18. HEENT: Head normocephalic, atraumatic. Eyes: PERRLA. Extraocular movements intact. Conjunctivae are clear. Nose patent. Mucous membranes moist. NECK: Supple. No carotid bruit, JVD or thyromegaly. CHEST: Bilaterally symmetrical. HEART: S1, S2 positive. LUNGS: Clear to auscultation. ABDOMEN: Soft. Bowel sounds positive. EXTREMITIES: Positive edema and has a dressing on the legs. The right leg is more red and swollen. NEUROLOGIC: The patient is awake, alert and moving all 4 extremities. No focal deficits. MEDICATIONS: Otezla, Welchol, Cozaar, aspirin, hydrochlorothiazide, Imdur, Lasix, Lopressor, Lotriso ne. LABORATORY DATA: White blood cells 8.7, hemoglobin 12.6, hematocrit 37.5, and platelets 307. Sodium 136, potassium 3.8, BUN 18, creatinine 0.9. Random glucose 141. ASSESSMENT AND PLAN: The patient is an 81-year-old lady with hyperglycemia, congestive heart failure . Seen by infectious disease/Dr. Goyo Herbert. Has cellulitis of both legs, especially the left, s lowly improving; hypertension, obesity, hypothyroidism, history of anxiety disorder. Continue vancom ycin and Zosyn, day 2. Blood and wound cultures from 02/12/2017 are negative, but repeat wound cultu res were sent by podiatry. Ultrasounds of her legs do not show any deep venous thrombosis. We will continue present treatment. I reviewed Dr. Goyo Herbert's notes. I reviewed Dr. Spear's notes al so. The patient started on multivitamins, vitamin C and wound healing even slowly. The patient star dustin on Silvadene and daily dressing to her wound and compressions on the left. IV antibiotics as per infectious disease. Will follow up. June Biggs MD cc: [id number] TT: 02/13/2017 21:52:35 Confirmation # [id number] Dictation # [id number] mn
[2017-02-14] MEDS: Piperacillin/Tazobact 3.375 gm 100 ML IVPB SCH ×2 (05:40→12:40)
[2017-02-14 07:25] LABS: CHOLESTEROL 187 mg/dL (130-200)
[2017-02-14 08:58] VITALS: RESP 20; TEMP 97.5; O2SAT 95
--- NOTE | 2017-02-14 10:08 | PN ---
DATE: 02/14/2017 This is an 81-year-old female seen for bilateral leg ulcers and cellulitis. The patient is seen at [facility]. She is sitting with her legs elevated. Dressings are clean, dry and intact. She has no new complaints. She states her legs are starting to feel better. Temperature is 97.5, pulse is 59, blo od pressure is 146/73, respirations are 20, oxygen was 95 at room air. The patient's medications are noted on the DEC. She is presently on Lovenox, Neurontin, Pepcid. We are putting Silvadene cream t o the wounds as well as Lotrisone cream to the periwound tissues. She is on multivitamins and antibi otics, vancomycin and Zosyn as per infectious disease. The patient's microbiology, the wound culture was no growth after 24 hours. LABORATORY DATA: Show normal white blood cell count. However, the ESR was at 66. Her glucose was 1 41. The rest of the SMA was grossly within normal limits. Her lower extremities are getting better as noted above. She has palpable pedal pulses bilateral. T emperature gradient is coming back to normal. There is a traumatic ulceration on the anterior lizama, which is tender to touch. There is no pus coming from it. However, there is local erythema around t he wound. The patient's left wound is healing and the cellulitis is improving. It was from the foot all the way to the knee upon presentation on Saturday. It is now localized from the ankle to the m id calf, mostly on the lateral aspect of the leg. There is some tenderness there, but no fluctuance is noted. ASSESSMENT: Bilateral leg ulcers and cellulitis. PLAN OF TREATMENT: To continue local care using Silvadene and a foam dressing to the wounds. No tap e on the skin. We then are using Lotrisone periwound and on the legs to calm the skin and to take ca re of any fungal elements if in the area. The patient will be seen and followed. Dressing change wa s done by myself. Estelita Spear DPM cc: [id number] TT: 02/14/2017 10:07:37 Confirmation # [id number] Dictation # [id number] rn
[2017-02-14] MEDS: APREMILAST 30 MG PO SCH (10:52)
[2017-02-14] MEDS: COLESEVELAM HCL PO SCH (10:53)
[2017-02-14] MEDS: Multivitamin With Minerals Tab PO SCH (10:53)
[2017-02-14] MEDS: Levothyroxine 50 MCG TAB PO SCH (10:54)
[2017-02-14] MEDS: Silver Sulfadiazine 1% Cream (20 gm) TOP SCH (10:55)
[2017-02-14] MEDS: Enoxaparin 40 mg Syringe SC SCH (10:55)
[2017-02-14] MEDS: Vancomycin 1gm in NS 250ml 1 GM/250 ML BAG IVPB SCH (10:55)
[2017-02-14] MEDS: Clotrimazole/Betamethasone Lotion(30 ml) TOP SCH (10:56)
[2017-02-14 11:13] VITALS: BP 146/76; PULSE 62
--- NOTE | 2017-02-14 14:13 | PN ---
DATE: 02/14/2017 The patient is in bed in no acute distress, nontoxic. PHYSICAL EXAMINATION: VITAL SIGNS: Temperature is 97, blood pressure is 140/70, respiratory rate of 18, heart rate of 59. HEENT: Unremarkable. NECK: Supple. LUNGS: Have decreased breath sounds. HEART: Normal S1, S2. ABDOMEN: Soft. LABORATORY EXAMINATION: Reveals a white count of 8.7, hemoglobin of 12 and BUN of 18, creatinine of 0.9. Procalcitonin 0.05. Microbiology reveals the leg cultures are gram-negative jackie and coag-negat paresh staph. Review of the orders reveals the patient to be on IV vancomycin and Zosyn. ASSESSMENT AND PLAN: An 81-year-old female with left leg cellulitis, improving slowly in a patient w ith hypertension, obesity, hypothyroidism, history of lower extremity cellulitis and anxiety disorder , currently on vancomycin and Zosyn. We will check on the cultures, gram-negative and coag-negative staph. We will make further recommendations. Review of the orders confirms the patient to be on van comycin and Zosyn in this patient who has anxiety, hypertension and we will follow closely with you. Timmy Ulloa MD cc: [id number] TT: 02/14/2017 14:12:25 Confirmation # [id number] Dictation # [id number] tn
--- NOTE | 2017-02-15 09:26 | DS ---
The patient was seen and examined on 02/14/2017. The patient was admitted on , discharged to TCU on 02/14/2017. CHIEF COMPLAINT: Swelling of the legs, red and warm. HISTORY OF PRESENT ILLNESS: The patient is an 81-year-old female having cellulitis and swelling of the legs, was seen by Dr. Spear. She sent the patient to the Emergency Room for the evaluation of the cellulitis of the legs. The patient is complaining of redness of lower extremities, especially left from past couple of days. The patient was seen in the Emergency Room on 2016, but left against medical advice. Now this time admitted on 02/11/2017. ID consult called with Dr. Ulloa. He started antibiotic. Podiatry consult called with Dr. Spear. She saw the patient and they are applying dressing. The patient improved a little bit. According to ID, we have to continue at least 7 days more of IV antibiotics. Talked to the patient and her . Transferred to TCU for the completion of antibiotics, for continuity of care and for deconditioning so she can get physical therapy. PAST MEDICAL HISTORY: History of hypertension, tachycardia, obesity, hypothyroidism, history of cellulitis of the legs, anxiety. FAMILY HISTORY: Father and mother noncontributory. ALLERGIES: The patient is not allergic with any medications. HOME MEDICATIONS: Xanax, Ecotrin, vitamin D, Welchol, Lasix, Neurontin, Synthroid, Lopressor, valsartan/HCTZ. REVIEW OF SYSTEMS: The patient seen and examined on the bedside in the room 362 , bed 2. was sitting on the bedside also. Still having pain, redness and warmth on the extremities, is wrapped with gauze, improving a little bit, getting dressing. No nausea, vomiting, diarrhea. No fever, no chills. No headache, no dizziness. PHYSICAL EXAMINATION: VITAL SIGNS: Temperature 97.5, pulse 52, blood pressure 120/80 , respiratory rate 20. HEENT: Head normocephalic, atraumatic. Eyes, PERRLA. Extraocular muscles intact. Conjunctivae clear. Nose patent. Mucous membranes moist. NECK: Supple. No carotid bruit, no JVD, no thyromegaly. CHEST: Bilaterally symmetrical. HEART: S1, S2 positive. LUNGS: Clear to auscultation. ABDOMEN: Soft. Bowel sounds positive. No organomegaly. EXTREMITIES: Have positive edema, redness, warmth, tender. NEUROLOGIC: The patient is awake, alert, moving all 4 extremities. No focal deficits. LABORATORIES: White blood cells 8.7, hemoglobin 12.6, hematocrit 37.5, platelets 307. Sodium 136, potassium 3.8, BUN 18, creatinine 0.9, glucose 141. ASSESSMENT AND PLAN: The patient with hypertriglyceridemia, hyperglycemia, is admitted with cellulitis of both extremities, improving, but very slowly. The patient has history of hypothyroidism, history of lower extremity cellulitis, anxiety. Continue vancomycin and Zosyn and according to ID, they will check the cultures, gram-negative and coagulase negative Staph, will do further recommendation about the course of the antibiotics after doing cultures. Right now, patient will stay on vancomycin and Zosyn. bed side is patient's . Will transfer to TCU for further antibiotics, further treatment and rehabilitation. Will follow up there. June Biggs MD cc: [id number] TT: 02/15/2017 09:25:38 en MTDD
== END 2017-02-14 15:08 | DRG 603 ==
LOC: ED 16:19 → ERH 18:03 → 3RNO 20:52
PROVIDERS: ADMIT Internal Medicine; ATTEND Internal Medicine
DX: L03.115 Cellulitis of right lower limb (principal); I11.0 Hypertensive heart disease with heart failure; L97.929 Non-pressure chronic ulcer of unspecified part of left lower leg with unspecified severity; I50.9 Heart failure, unspecified; B95.7 Other staphylococcus as the cause of diseases classified elsewhere; E03.9 Hypothyroidism, unspecified; L03.116 Cellulitis of left lower limb; L40.9 Psoriasis, unspecified; E87.6 Hypokalemia; E86.0 Dehydration; I10 Essential (primary) hypertension; E78.1 Pure hyperglyceridemia; F41.9 Anxiety disorder, unspecified; Z79.82 Long term (current) use of aspirin; Z79.899 Other long term (current) drug therapy; R00.0 Tachycardia, unspecified; R40.2412 Glasgow coma scale score 13-15, at arrival to emergency department; E66.01 Morbid (severe) obesity due to excess calories; S80.811A Abrasion, right lower leg, initial encounter; Z68.33 Body mass index [BMI] 33.0-33.9, adult; R73.9 Hyperglycemia, unspecified

== ENCOUNTER 2017-02-14 15:08 | Inpatient (IN) | payer OTHER, MEDICAID ==
[2017-02-15] MEDS: Piperacillin/Tazobact 3.375 gm 100 ML IVPB SCH ×3 (00:51→21:56)
[2017-02-15] MEDS: Vancomycin 1gm in NS 250ml 1 GM/250 ML BAG IVPB SCH ×2 (05:10→17:12)
[2017-02-15] MEDS: Enoxaparin 40 mg Syringe SC SCH (05:11)
[2017-02-15] MEDS: Multivitamin With Minerals Tab PO SCH (09:18)
[2017-02-15] MEDS ORDERED: Levothyroxine 50 MCG TAB PO SCH (10:00)
[2017-02-15] MEDS ORDERED: COLESEVELAM HCL PO SCH (10:00)
[2017-02-15] MEDS: Silver Sulfadiazine 1% Cream (20 gm) TOP SCH (12:08)
[2017-02-15] MEDS: Clotrimazole/Betamethasone Lotion(30 ml) TOP SCH ×2 (12:08→17:08)
--- NOTE | 2017-02-15 12:11 | CP.PCM.PN ---
<Chela Bliss - Last Filed: 02/15/17 12:07> Subjective - Date & Time of Evaluation Date of Evaluation: 02/15/17 Time of Evaluation: 12:07 - Subjective Subjective: 81 year old female was seen resting at bedside with attending, Dr. Melendrez regarding bilateral leg ulcers and cellulitis. Dressing clean, dry, intact b/l. Patient denies any pain. She denies n/v/f/c/sob/cp. Objective - Vital Signs/Intake and Output Vital Signs (last 24 hours): Temp Pulse Resp BP Pulse Ox 66 14 148/68 02/15/17 08:29 02/15/17 01:57 02/15/17 09:16 - Medications Medications: Current Medications Alprazolam (Xanax) 1 mg PO HS MARCELA PRN Reason: Protocol Last Admin: 02/14/17 21:47 Dose: 1 mg Ascorbic Acid (Vitamin C 500 Mg Tab) 500 mg PO DAILY MARCELA PRN Reason: Protocol Last Admin: 02/15/17 09:18 Dose: 500 mg Aspirin (Ecotrin) 81 mg PO DAILY MARCELA PRN Reason: Protocol Last Admin: 02/15/17 09:15 Dose: 81 mg Betamethasone/Clotrimazole (Lotrisone) 0 ml TOP BID MARCELA PRN Reason: Protocol Cholecalciferol (Vitamin D) 2,000 iu PO DAILY MARCELA PRN Reason: Protocol Last Admin: 02/15/17 09:21 Dose: 2,000 iu Enoxaparin Sodium (Lovenox) 40 mg SC 0600 MARCELA PRN Reason: Protocol Last Admin: 02/15/17 05:11 Dose: 40 mg Famotidine (Pepcid) 40 mg PO HS MARCELA PRN Reason: Protocol Last Admin: 02/14/17 21:49 Dose: 40 mg Furosemide (Lasix) 40 mg PO DAILY MARCELA PRN Reason: Protocol Last Admin: 02/15/17 09:16 Dose: 40 mg Gabapentin (Neurontin) 300 mg PO TID MARCELA PRN Reason: Protocol Last Admin: 02/15/17 09:17 Dose: 300 mg Hydrochlorothiazide (Hydrodiuril) 25 mg PO DAILY MARCELA PRN Reason: Protocol Last Admin: 02/15/17 09:15 Dose: 25 mg Vancomycin HCl (Vancomycin 1gm) 1 gm in 250 mls @ 167 mls/hr IVPB 0600,1800 MARCELA PRN Reason: Protocol Last Admin: 02/15/17 05:10 Dose: 167 mls/hr Levothyroxine Sodium (Synthroid) 50 mcg PO DAILY MARCELA PRN Reason: Protocol Last Admin: 02/15/17 09:17 Dose: 50 mcg Losartan Potassium (Cozaar) 100 mg PO DAILY MARCELA PRN Reason: Protocol Last Admin: 02/15/17 09:14 Dose: 100 mg Metoprolol Tartrate (Lopressor) 100 mg PO BRK MARCELA PRN Reason: Protocol Last Admin: 02/15/17 08:29 Dose: 100 mg Multivitamins/Minerals (Therapeutic-M Tab) 1 tab PO DAILY MARCELA PRN Reason: Protocol Last Admin: 02/15/17 09:18 Dose: 1 tab Apremilast [Otezla] (30 Mg) 30 mg PO DAILY [facility] Non-Formulary Medication (Colesevelam Hcl [Welchol]) 1 tab PO DAILY [facility] Silver Sulfadiazine (Silvadene 1% 20 Gm) 0 ea TOP DAILY MARCELA PRN Reason: Protocol Tramadol HCl (Ultram) 50 mg PO Q8 PRN; Protocol PRN Reason: Pain, moderate (4-7) Zinc Sulfate (Zinc Sulfate 220 Mg Cap) 220 mg PO DAILY MARCELA PRN Reason: Protocol Last Admin: 02/15/17 09:22 Dose: 220 mg - Constitutional Appears: Well, Non-toxic, No Acute Distress - Extremities Exam Additional comments: lower extremity focused exam: Vasc:DP and PT pulses palpable b/l. Skin temperature warm to warm b/l but coming back to normal. Derm:Ulcer noted to anterior lizama on the right due to trauma, tender to touch, no malodor, no purulence, no drainage noted. Peirwound is erythematous. On the right she has an ulceration that is healing, with mild drainage noted, no purlence, no malodor noted. Neuro:Gross sensation diminished b/l - Neurological Exam Neurological Exam: Alert, Awake, Oriented x3 - Psychiatric Exam Psychiatric exam: Normal Affect, Normal Mood Assessment and Plan - Assessment and Plan (Free Text) Assessment: 81 year old female with bilateral leg ulcerations and cellulitis Plan: patient examined and evaluated with attending, Dr. Melendrez chart, vitals, labs reviewed legs cleansed with normal sterile saline dressed with silvadene, foam gauze, and kerlix-no tape to skin continue iv abx per ID continue vitamins podiatry will continue to follow patient while in house <Dom Melendrez - Last Filed: 02/16/17 07:40> Objective - Vital Signs/Intake and Output Vital Signs (last 24 hours): Temp Pulse Resp BP Pulse Ox 98.0 F 62 20 140/80 96 02/16/17 06:00 02/16/17 06:00 02/16/17 06:00 02/16/17 06:00 02/15/17 16:58 - Medications Medications: Current Medications Alprazolam (Xanax) 1 mg PO HS MARCELA PRN Reason: Protocol Last Admin: 02/15/17 21:52 Dose: 1 mg Ascorbic Acid (Vitamin C 500 Mg Tab) 500 mg PO DAILY MARCELA PRN Reason: Protocol Last Admin: 02/15/17 09:18 Dose: 500 mg Aspirin (Ecotrin) 81 mg PO DAILY MARCELA PRN Reason: Protocol Last Admin: 02/15/17 09:15 Dose: 81 mg Betamethasone/Clotrimazole (Lotrisone) 0 ml TOP BID MARCELA PRN Reason: Protocol Last Admin: 02/15/17 17:08 Dose: Not Given Cholecalciferol (Vitamin D) 2,000 iu PO DAILY MARCELA PRN Reason: Protocol Last Admin: 02/15/17 09:21 Dose: 2,000 iu Enoxaparin Sodium (Lovenox) 40 mg SC 0600 MARCELA PRN Reason: Protocol Last Admin: 02/16/17 05:11 Dose: 40 mg Famotidine (Pepcid) 40 mg PO HS MARCELA PRN Reason: Protocol Last Admin: 02/15/17 21:51 Dose: 40 mg Furosemide (Lasix) 40 mg PO DAILY MARCELA PRN Reason: Protocol Last Admin: 02/15/17 09:16 Dose: 40 mg Gabapentin (Neurontin) 300 mg PO TID MARCELA PRN Reason: Protocol Last Admin: 02/15/17 17:08 Dose: 300 mg Hydrochlorothiazide (Hydrodiuril) 25 mg PO DAILY MARCELA PRN Reason: Protocol Last Admin: 02/15/17 09:15 Dose: 25 mg Vancomycin HCl (Vancomycin 1gm) 1 gm in 250 mls @ 167 mls/hr IVPB 0600,1800 MARCELA PRN Reason: Protocol Last Admin: 02/16/17 06:25 Dose: 167 mls/hr Piperacillin Sod/Tazobactam Sod (Zosyn 3.375 In Ns 100ml) 100 mls @ 200 mls/hr IVPB Q6 MARCELA PRN Reason: Protocol Stop: 02/24/17 20:57 Last Admin: 02/16/17 05:17 Dose: 200 mls/hr Levothyroxine Sodium (Synthroid) 50 mcg PO 0600 MARCELA PRN Reason: Protocol Last Admin: 02/16/17 05:13 Dose: 50 mcg Losartan Potassium (Cozaar) 100 mg PO DAILY MARCELA PRN Reason: Protocol Last Admin: 02/15/17 09:14 Dose: 100 mg Metoprolol Tartrate (Lopressor) 100 mg PO BRK MARCELA PRN Reason: Protocol Last Admin: 02/15/17 08:29 Dose: 100 mg Multivitamins/Minerals (Therapeutic-M Tab) 1 tab PO DAILY MARCELA PRN Reason: Protocol Last Admin: 02/15/17 09:18 Dose: 1 tab Non-Formulary Medication (Colesevelam Hcl [Welchol]) 3 tab PO 0800,1800 [facility] Last Admin: 02/15/17 18:11 Dose: 3 tab Silver Sulfadiazine (Silvadene 1% 20 Gm) 0 ea TOP DAILY MARCELA PRN Reason: Protocol Last Admin: 02/15/17 12:08 Dose: 1 applic Tramadol HCl (Ultram) 50 mg PO Q8 PRN; Protocol PRN Reason: Pain, moderate (4-7) Zinc Sulfate (Zinc Sulfate 220 Mg Cap) 220 mg PO DAILY MARCELA PRN Reason: Protocol Last Admin: 02/15/17 09:22 Dose: 220 mg Attending/Attestation - Attestation I have personally seen and examined this patient.: Yes I have fully participated in the care of the patient.: Yes I have reviewed all pertinent clinical information, including history, physical exam and plan: Yes
[2017-02-15] MEDS ORDERED: Non Formulary Medication (Colesevelam Hcl [Welchol] 3 TAB) PO SCH ×2 (15:26→15:27)
[2017-02-15] MEDS: Non Formulary Medication (Colesevelam Hcl [Welchol] 3 TAB) PO SCH (18:11)
[2017-02-16] MEDS: Piperacillin/Tazobact 3.375 gm 100 ML IVPB SCH ×4 (02:18→17:00)
[2017-02-16] MEDS: Enoxaparin 40 mg Syringe SC SCH (05:11)
[2017-02-16] MEDS: Levothyroxine 50 MCG TAB PO SCH (05:13)
[2017-02-16] MEDS: Vancomycin 1gm in NS 250ml 1 GM/250 ML BAG IVPB SCH ×3 (06:25→21:06)
--- NOTE | 2017-02-16 08:17 | CON ---
DATE: 02/15/2017 CHIEF COMPLAINT: Lower extremity cellulitis x several days. HISTORY OF PRESENT ILLNESS: This is an 81-year-old female who was in acute care, was given antibioti cs for this cellulitis with a history of hypertension, obesity, hypothyroidism, was admitted to the [facility] for intravenous antibiotics for the lower extremity cellulitis. REVIEW OF SYSTEMS: Reveals no fevers and no chills, no chest pain, no hemoptysis, abdominal pain or diarrhea. PAST MEDICAL HISTORY: Significant for hypertension, obesity, hypothyroidism, anxiety. PAST SURGICAL HISTORY: Noncontributory. ALLERGIES: The patient has no known allergies. MEDICATIONS: Reviewed. PHYSICAL EXAMINATION: VITAL SIGNS: The patient's temperature 97, blood pressure is 150/70, respiratory rate of 16. HEENT: Unremarkable. NECK: Supple. LUNGS: Decreased breath sounds. HEART: Normal S1, S2. ABDOMEN: Soft, nontender. LABORATORY EXAMINATION: Reveals a white count of 8.4, hemoglobin of 12, platelets of 307. Chemistri es reveal the BUN of 18, creatinine of 0.9. Procalcitonin is 0.05. The leg cultures are pseudomonas , Enterobacter cloacae, coag-negative staph. ASSESSMENT AND PLAN: An 81-year-old female a with left leg cellulitis, slowly improving with a histo ry of hypertension, obesity, hypothyroidism, history of lower extremity cellulitis and anxiety. On v ancomycin and Zosyn. We will follow closely with you. Timmy Ulloa MD cc: [id number] TT: 02/16/2017 08:16:15 Confirmation # [id number] Dictation # [id number] tn
[2017-02-16] MEDS: Non Formulary Medication (Colesevelam Hcl [Welchol] 3 TAB) PO SCH ×2 (08:52→17:02)
--- NOTE | 2017-02-16 09:43 | HP ---
CHIEF COMPLAINT: Swelling of the leg, fatigue and tired. HISTORY OF PRESENT ILLNESS: The patient is an 81-year-old female seen and examined on 02/15/17. The patient has cellulitis and swelling of the legs, was seen by Dr. Spear in her office. Then, she se nt the patient to the Emergency Room for further evaluation for cellulitis of the leg. The patient i s complaining of redness of lower extremities, especially in the left more than the right. The patie nt was seen in the Emergency Room, was admitted. We kept patient on medical floor for a couple of da ys. ID consult called with Dr. Ulloa and podiatry by Dr. Spear. The patient got antibiotics, got better, but still antibiotic course was not done and patient was deconditioned. We transferred the patient to TCU for deconditioning and completion of antibiotics and continuity of care. PAST MEDICAL HISTORY: History of hypertension, tachycardia, obesity, hypothyroidism, cellulitis of t he lower extremities, history of stasis dermatitis, anxiety. FAMILY HISTORY: Father and mother noncontributory. ALLERGIES: The patient is not allergic with any medications. HOME MEDICATIONS: Xanax, Ecotrin, vitamin D, Welchol, Lasix, Neurontin, Synthroid, Lopressor, antibi otics. REVIEW OF SYSTEMS: The patient is seen and examined on the bedside, looks comfortable. No nausea, v omiting, or diarrhea. No hematuria or hematochezia. No headache, no dizziness, no chest pain, no pa lpitation. PHYSICAL EXAMINATION: VITAL SIGNS: Temperature 97.5, pulse 72, blood pressure 158/70, respiratory rate 15. HEENT: Head normocephalic, atraumatic. Eyes: PERRLA. Extraocular muscles intact. Conjunctivae cl ear. Nose patent. Mucous membranes moist. NECK: Supple. No carotid bruit, JVD or thyromegaly. CHEST: Bilaterally symmetrical. HEART: S1, S2 positive. LUNGS: Clear to auscultation. ABDOMEN: Soft. Bowel sounds positive. No organomegaly. EXTREMITIES: Positive edema and swelling. NEUROLOGIC: The patient is awake, alert, moving all 4 extremities. No focal deficits. MEDICATIONS: Reviewed by me. LABORATORY DATA: Reviewed by me. ASSESSMENT AND PLAN: The patient has hypertriglyceridemia, hyperglycemia, was admitted with cellulit is of both extremities, improving, getting antibiotics, transferred to TCU for continuity of care and for physical therapy. We will continue consult with infectious disease and podiatry. Gastrointesti nal and deep venous thrombosis prophylaxis. Repeat labs. We will follow up. June Biggs MD cc: [id number] TT: 02/16/2017 09:43:24 tn
--- NOTE | 2017-02-16 10:26 | PN ---
DATE: 02/16/2017 An 81-year-old female seen at bedside in TCU for continued evaluation and management of resolving jose ateral lower leg cellulitis with ulcerations. The patient denies fever, chills, nausea, and shortnes s of breath. However, she does state that she is still having pain in the left lower leg. VITAL SIGNS: Reveal temperature of 98, pulse rate of 62, blood pressure of 140/80, respiratory rate of 20. LABORATORY DATA: Most recent laboratory findings reveal a white count of 8.7, hemoglobin of 12.6, he matocrit of 37.5, platelet count of 307. Her ESR is elevated at 66. Most recent microbiology report reveals coagulase-negative Staphylococcus aureus, Pseudomonas and Enterobacter cloacae species growt h. ALL MEDICATIONS: Noted in DEC. OBJECTIVE: Weakly palpable pedal pulses noted bilaterally. Temperature gradient is increased in bot h lower legs, but is returning to within normal limits as cellulitis is resolving. There is noted to be a full thickness ulceration on the left lower leg that measures approximately 0.7 x 0.6 x 0.2 cm. The base of the ulcer is a mixture of granular and fibrotic tissue. The area surrounding the ulcer ation is edematous and erythematous. However, overall; the lower leg has become much less edematous and erythematous since hospital admission. Right lower leg has superficial ulcerations secondary to trauma with mild drainage. All wounds present with serous drainage, no purulence and there are no si gns of abscess formation noted bilaterally. ASSESSMENT: An 81-year-old female with bilateral leg ulcerations and resolving cellulitis responding well to IV antibiotics. PLAN: The patient was examined. Chart, vitals and labs were reviewed. The legs were cleansed with normal sterile saline and application of Silvadene. Optifoam and Kerlix were applied to both lower l egs. We will continue with IV antibiotics as per infectious disease. New culture was taken and subm itted for sensitivities today which will be reviewed by ID and the patient will be seen and followed daily while in-house. Dom Melendrez DPM cc: [id number] TT: 02/16/2017 10:25:37 Confirmation # [id number] Dictation # [id number] tn
[2017-02-16] MEDS: Silver Sulfadiazine 1% Cream (20 gm) TOP SCH (10:55)
[2017-02-16] MEDS: Clotrimazole/Betamethasone Lotion(30 ml) TOP SCH ×2 (10:55→17:01)
[2017-02-16] MEDS: Multivitamin With Minerals Tab PO SCH (10:55)
--- NOTE | 2017-02-16 14:08 | PN ---
DATE: 02/16/2017 The patient is in bed in no acute distress, nontoxic, no fevers. PHYSICAL EXAMINATION: VITAL SIGNS: Temperature is 98, blood pressure is 120/70, respiratory rate of 18. HEENT: Unremarkable. NECK: Supple. LUNGS: Have decreased breath sounds. HEART: Normal S1, S2. ABDOMEN: Soft, nontender. EXTREMITIES: Examination of the leg is improving. Review of the orders reveals the patient to be on vancomycin and Zosyn. ASSESSMENT AND PLAN: This is an 81-year-old female with left leg cellulitis, improving, history of h ypertension, obesity, hypothyroidism, history of lower extremity cellulitis, anxiety on Zosyn and van comycin day #5 of antibiotics with Pseudomonas aeruginosa Enterobacter cloacae and coag negative stap h. No sensitivities done, is sensitive on coag negative staph and will order a vancomycin trough lev el. Vancomycin is given at 6:00 a.m. and 6:00 p.m. We will order a vancomycin trough level at 5 p.m. tonight. Timmy Ulloa MD cc: 350 TT: 02/16/2017 14:08:08 Confirmation # [id number] Dictation # [id number] jn
[2017-02-16] MEDS ORDERED: POLYETHYLENE GLYCOL 3350 17 GM/Dose PACKET PO ONE (19:34)
[2017-02-16] MEDS ORDERED: POLYETHYLENE GLYCOL 3350 17 GM/Dose PACKET PO PRN (19:35)
[2017-02-17] MEDS: Piperacillin/Tazobact 3.375 gm 100 ML IVPB SCH ×5 (00:18→23:52)
[2017-02-17] MEDS: Enoxaparin 40 mg Syringe SC SCH (05:32)
[2017-02-17] MEDS: Vancomycin 1gm in NS 250ml 1 GM/250 ML BAG IVPB SCH ×2 (05:33→18:27)
[2017-02-17] MEDS: Levothyroxine 50 MCG TAB PO SCH (05:33)
[2017-02-17] MEDS: Non Formulary Medication (Colesevelam Hcl [Welchol] 3 TAB) PO SCH ×2 (07:59→18:26)
[2017-02-17] MEDS: Clotrimazole/Betamethasone Lotion(30 ml) TOP SCH ×2 (09:25→18:26)
[2017-02-17] MEDS: Multivitamin With Minerals Tab PO SCH (09:25)
[2017-02-17] MEDS: Silver Sulfadiazine 1% Cream (20 gm) TOP SCH (09:26)
--- NOTE | 2017-02-17 09:38 | PN ---
DATE: 02/17/2017 SUBJECTIVE: The patient is seen earlier today in room 318. She is awake and alert. She is tolerati ng the antibiotics well. No nausea or vomiting, no diarrhea. PHYSICAL EXAMINATION: VITAL SIGNS: Temperature is 98. Blood pressure is 158/70, respiratory rate of 20. HEENT: Unremarkable. NECK: Supple. LUNGS: Have decreased breath sounds. HEART: Normal S1, S2. ABDOMEN: Soft. LABORATORY EXAMINATION: Noted. Microbiology is noted. ASSESSMENT AND PLAN: An 81-year-old female with left leg cellulitis, history of hypertension, obesit y, hypothyroidism, history of lower extremity cellulitis, and anxiety, on day #6 of vancomycin and Zo syn with Pseudomonas aeruginosa, Enterobacter and coag negative staph. Vancomycin trough level is re ported to be 19.9. MEDICATIONS: Review of the medications reveals the patient to be on vancomycin and Zosyn. The patient's last creatinine was 0.9, which was on the 10th. We will repeat a creatinine, chemistri es, a CBC, a sed rate, and a C-reactive protein. Timmy Ulloa MD cc: 350 TT: 02/17/2017 09:38:03 Confirmation # [id number] Dictation # [id number] reena
[2017-02-17 10:33] LABS: ADD MANUAL DIFF? NO
[2017-02-17 10:41] LABS: BASO # 0.03 K/mm3 (0.0-2.0); BASO % 0.2 % (0.0-3.0); EOS # 0.2 (0.0-0.7); EOS % 1.6 % (1.5-5.0); GRAN # 9.37 (1.4-6.5); GRAN % 72.4 % (50.0-68.0); HEMATOCRIT 36.5 % (36.0-48.0); LYMPH # 2.9 (1.2-3.4); LYMPH % 22.2 % (22.0-35.0); MEAN CELL VOLUME 90.6 fL (80.0-105.0); MEAN CORPUSCULAR HGB CONC 32.1 g/dl (31.0-37.0); MEAN PLATELET VOLUME 7.7 fl (7.0-11.0); MONO # 0.5 (0.1-0.6); MONO % 3.6 % (1.0-6.0); PLATELET COUNT 398 10^3/uL (120.0-450.0); RED CELL DISTRIBUTION WIDTH 14.2 % (11.5-14.5)
[2017-02-17 10:44] LABS: ALKALINE PHOSPHATASE 69 U/L (38-133); ALT/SGPT 31 U/L (7-56); AST/SGOT 30 U/L (15-39); BILIRUBIN,TOTAL 0.4 mg/dL (0.2-1.3); BLOOD UREA NITROGEN 19 mg/dL (7-21); CALCIUM 9.5 mg/dL (8.4-10.5); CARBON DIOXIDE 33 mmol/L (21-33); CHLORIDE 96 mmol/L (95-110); GFR AFRICAN-AMERICAN > 60; GLUCOSE,RANDOM 119 mg/dL (70-110); POTASSIUM 3.7 mmol/L (3.6-5.0); SODIUM 137 mmol/L (132-148); TOTAL PROTEIN 7.3 g/dL (5.8-8.3)
[2017-02-17 12:16] LABS: ERYTHROCYTE SEDIMENTATION RATE 53 mm/hr (0.0-20.0)
[2017-02-18] MEDS: Enoxaparin 40 mg Syringe SC SCH (05:12)
[2017-02-18] MEDS: Levothyroxine 50 MCG TAB PO SCH (05:13)
[2017-02-18] MEDS: Vancomycin 1gm in NS 250ml 1 GM/250 ML BAG IVPB SCH ×2 (05:14→17:18)
[2017-02-18] MEDS: Piperacillin/Tazobact 3.375 gm 100 ML IVPB SCH ×3 (05:16→17:12)
[2017-02-18] MEDS: Non Formulary Medication (Colesevelam Hcl [Welchol] 3 TAB) PO SCH ×2 (08:06→17:12)
[2017-02-18] MEDS: Multivitamin With Minerals Tab PO SCH (09:58)
[2017-02-18] MEDS: Clotrimazole/Betamethasone Lotion(30 ml) TOP SCH ×2 (10:00→17:17)
[2017-02-18] MEDS: Silver Sulfadiazine 1% Cream (20 gm) TOP SCH (10:00)
--- NOTE | 2017-02-18 13:24 | PN ---
DATE: 02/17/2017 SUBJECTIVE: The patient was seen and examined on 02/17/2017. Son and were sitting on the be dside. Length of time discussion done. All questions answered. PHYSICAL EXAMINATION: VITAL SIGNS: Temperature 98, pulse 77, blood pressure 149/79, respiratory rate 20. HEENT: Head normocephalic, atraumatic. Eyes: PERRLA. Extraocular muscles intact. Conjunctivae ar e clear. Nose patent. Mucous membranes moist. NECK: Supple. No carotid bruit, JVD, or thyromegaly. CHEST: Bilaterally symmetrical. HEART: S1, S2 positive. LUNGS: Clear to auscultation. ABDOMEN: Soft. Bowel sounds present. No organomegaly. EXTREMITIES: Lower extremities: There is still edema, swelling, redness and are wrapped with dressi ng. MEDICATIONS: Welchol, Cozaar, Ecotrin, hydrochlorothiazide, Lasix, Lotrisone, Lovenox, MiraLax, Neur ontin, Pepcid. LABORATORY DATA: White blood cell is 13.0, hemoglobin 11.7, hematocrit 36.5, platelets 398. Sodium 137, potassium 3.7, BUN 19, creatinine 1.0, and glucose 119. ASSESSMENT AND PLAN: The patient is an 81-year-old lady with leukocytosis, anemia, hyperglycemia, ob esity; history of constipation, MiraLax given, improved; complaining about rash in the groin area, ca ndida inguinal, nystatin powder given; has severe cellulitis of the leg, history of hypertension, hyp othyroidism, anxiety. Day 6 of antibiotics of vancomycin and Zosyn with Pseudomonas aeruginosa, ente rococcus and coagulase-negative Staphylococcus. Vancomycin trough level reported to be 19.9, placed by Dr. Ulloa of infectious disease. Continue antibiotics as per Dr. Ulloa. Reviewed CBC a nd SMA-7, especially creatinine. Out of bed. Physical therapy. Will follow up. June Biggs MD cc: [id number] TT: 02/18/2017 13:24:11 Confirmation # [id number] Dictation # [id number] mn
--- NOTE | 2017-02-18 15:37 | CP.PCM.PN ---
<Chela Bliss - Last Filed: 02/18/17 15:33> Subjective - Date & Time of Evaluation Date of Evaluation: 02/18/17 Time of Evaluation: 15:34 - Subjective Subjective: 81 year old female was seen resting at bedside with attending, Dr. Spear regarding bilateral leg ulcers and cellulitis. She admits that her toenails are long and would like them cut. Dressing clean, dry, intact b/l. Patient denies any pain. She denies any n/v/f/c/sob/cp. Objective - Vital Signs/Intake and Output Vital Signs (last 24 hours): Temp Pulse Resp BP Pulse Ox 98 F 68 16 145/70 97 02/18/17 10:00 02/18/17 10:00 02/18/17 10:00 02/18/17 10:00 02/18/17 10:00 - Medications Medications: Current Medications Alprazolam (Xanax) 1 mg PO HS [facility]ELA PRN Reason: Protocol Last Admin: 02/17/17 21:15 Dose: 1 mg Ascorbic Acid (Vitamin C 500 Mg Tab) 500 mg PO DAILY [facility] PRN Reason: Protocol Last Admin: 02/18/17 09:57 Dose: 500 mg Aspirin (Ecotrin) 81 mg PO DAILY [facility] PRN Reason: Protocol Last Admin: 02/18/17 09:57 Dose: 81 mg Betamethasone/Clotrimazole (Lotrisone) 0 ml TOP BID [facility]A PRN Reason: Protocol Last Admin: 02/18/17 10:00 Dose: 1 cer Cholecalciferol (Vitamin D) 2,000 iu PO DAILY [facility] PRN Reason: Protocol Last Admin: 02/18/17 09:57 Dose: 2,000 iu Enoxaparin Sodium (Lovenox) 40 mg SC 0600 [facility] PRN Reason: Protocol Last Admin: 02/18/17 05:12 Dose: 40 mg Famotidine (Pepcid) 40 mg PO HS [facility]A PRN Reason: Protocol Last Admin: 02/17/17 22:00 Dose: 40 mg Furosemide (Lasix) 40 mg PO DAILY [facility]A PRN Reason: Protocol Last Admin: 02/18/17 09:58 Dose: 40 mg Gabapentin (Neurontin) 300 mg PO TID [facility]A PRN Reason: Protocol Last Admin: 02/18/17 14:31 Dose: 300 mg Hydrochlorothiazide (Hydrodiuril) 25 mg PO DAILY [facility]A PRN Reason: Protocol Last Admin: 02/18/17 09:57 Dose: 25 mg Vancomycin HCl (Vancomycin 1gm) 1 gm in 250 mls @ 167 mls/hr IVPB 0600,1800 [facility] PRN Reason: Protocol Last Admin: 02/18/17 05:14 Dose: 167 mls/hr Piperacillin Sod/Tazobactam Sod (Zosyn 3.375 In Ns 100ml) 100 mls @ 200 mls/hr IVPB Q6 [facility]A PRN Reason: Protocol Stop: 02/24/17 20:57 Last Admin: 02/18/17 12:27 Dose: 200 mls/hr Levothyroxine Sodium (Synthroid) 50 mcg PO 0600 [facility]A PRN Reason: Protocol Last Admin: 02/18/17 05:13 Dose: 50 mcg Losartan Potassium (Cozaar) 100 mg PO DAILY M[facility]ELA PRN Reason: Protocol Last Admin: 02/18/17 09:58 Dose: 100 mg Metoprolol Tartrate (Lopressor) 100 mg PO BRK M[facility]A PRN Reason: Protocol Last Admin: 02/18/17 08:06 Dose: 100 mg Multivitamins/Minerals (Therapeutic-M Tab) 1 tab PO DAILY M[facility]ELA PRN Reason: Protocol Last Admin: 02/18/17 09:58 Dose: 1 tab Non-Formulary Medication (Colesevelam Hcl [Welchol]) 3 tab PO 0800,1800 [facility] Last Admin: 02/18/17 08:06 Dose: 3 tab Polyethylene Glycol (Miralax) 17 gm PO DAILY PRN PRN Reason: Constipation Silver Sulfadiazine (Silvadene 1% 20 Gm) 0 ea TOP DAILY M[facility]ELA PRN Reason: Protocol Last Admin: 02/18/17 10:00 Dose: 1 applic Tramadol HCl (Ultram) 50 mg PO Q8 PRN; Protocol PRN Reason: Pain, moderate (4-7) Last Admin: 02/18/17 10:02 Dose: 50 mg Zinc Sulfate (Zinc Sulfate 220 Mg Cap) 220 mg PO DAILY [facility] PRN Reason: Protocol Last Admin: 02/18/17 09:57 Dose: 220 mg - Labs Labs: 02/17/17 10:30 02/17/17 10:30 - Constitutional Appears: Non-toxic, No Acute Distress - Extremities Exam Additional comments: lower extremity focused exam: Vasc: DP and PT pulses palpable b/l. Skin temperature warm to warm b/l. Derm: Ulcer noted to anterior lizama on the right due to trauma, tender to touch, no malodor, no purulence, no drainage noted. Peirwound is erythematous. On the right she has an ulceration that is healing, with mild drainage noted, no purlence, no malodor noted. Erythema noted b/l but slowly resolving. Nails 1- 5 b/l thickened, elongated, dystrophic. Neuro:Gross sensation diminished b/l - Neurological Exam Neurological Exam: Alert, Awake, Oriented x3 - Psychiatric Exam Psychiatric exam: Normal Affect, Normal Mood Assessment and Plan - Assessment and Plan (Free Text) Assessment: 81 year old female with bilateral leg ulcerations and cellulitis Plan: patient examined and evaluated with attending, Dr. Spear chart, vitals, labs reviewed legs cleansed with normal sterile saline dressed with foam gauze w/o adhesive, and kerlix-no tape/ adhesive to be put directly on skin continue iv abx per ID continue vitamins podiatry will continue to follow patient while in house nails to be trimmed tomorrow patient to follow up with Dr. Spear after D/C <Estelita Spear - Last Filed: 03/10/17 16:33> Objective - Vital Signs/Intake and Output Vital Signs (last 24 hours): Temp Pulse Resp BP Pulse Ox 97.8 F 77 20 120/58 L 98 02/22/17 16:00 02/23/17 08:22 02/22/17 16:00 02/23/17 10:15 02/22/17 10:00 - Labs Labs: 02/17/17 10:30 02/19/17 11:45
--- NOTE | 2017-02-18 21:25 | CP.PCM.PN ---
Subjective - Date & Time of Evaluation Date of Evaluation: 02/18/17 Time of Evaluation: 10:20 - Subjective Subjective: Comfortable, less pain in the legs, no fevers. Objective - Vital Signs/Intake and Output Vital Signs (last 24 hours): Temp Pulse Resp BP Pulse Ox 98.5 F 93 H 16 136/78 93 L 02/18/17 06:00 02/18/17 06:00 02/18/17 06:00 02/18/17 06:00 02/18/17 06:00 - Medications Medications: Current Medications Alprazolam (Xanax) 1 mg PO HS MARCELA PRN Reason: Protocol Last Admin: 02/17/17 21:15 Dose: 1 mg Ascorbic Acid (Vitamin C 500 Mg Tab) 500 mg PO DAILY [facility] PRN Reason: Protocol Last Admin: 02/17/17 09:23 Dose: 500 mg Aspirin (Ecotrin) 81 mg PO DAILY [facility]A PRN Reason: Protocol Last Admin: 02/17/17 09:24 Dose: 81 mg Betamethasone/Clotrimazole (Lotrisone) 0 ml TOP BID M[facility]ELA PRN Reason: Protocol Last Admin: 02/17/17 18:26 Dose: 1 cer Cholecalciferol (Vitamin D) 2,000 iu PO DAILY [facility]A PRN Reason: Protocol Last Admin: 02/17/17 09:23 Dose: 2,000 iu Enoxaparin Sodium (Lovenox) 40 mg SC 0600 [facility]ELA PRN Reason: Protocol Last Admin: 02/18/17 05:12 Dose: 40 mg Famotidine (Pepcid) 40 mg PO HS M[facility]ELA PRN Reason: Protocol Last Admin: 02/17/17 22:00 Dose: 40 mg Furosemide (Lasix) 40 mg PO DAILY [facility]A PRN Reason: Protocol Last Admin: 02/17/17 09:24 Dose: 40 mg Gabapentin (Neurontin) 300 mg PO TID M[facility]ELA PRN Reason: Protocol Last Admin: 02/17/17 18:27 Dose: 300 mg Hydrochlorothiazide (Hydrodiuril) 25 mg PO DAILY M[facility]ELA PRN Reason: Protocol Last Admin: 02/17/17 09:24 Dose: 25 mg Vancomycin HCl (Vancomycin 1gm) 1 gm in 250 mls @ 167 mls/hr IVPB 0600,1800 [facility]A PRN Reason: Protocol Last Admin: 02/18/17 05:14 Dose: 167 mls/hr Piperacillin Sod/Tazobactam Sod (Zosyn 3.375 In Ns 100ml) 100 mls @ 200 mls/hr IVPB Q6 M[facility]ELA PRN Reason: Protocol Stop: 02/24/17 20:57 Last Admin: 02/18/17 05:16 Dose: 200 mls/hr Levothyroxine Sodium (Synthroid) 50 mcg PO 0600 M[facility]ELA PRN Reason: Protocol Last Admin: 02/18/17 05:13 Dose: 50 mcg Losartan Potassium (Cozaar) 100 mg PO DAILY M[facility]ELA PRN Reason: Protocol Last Admin: 02/17/17 09:24 Dose: 100 mg Metoprolol Tartrate (Lopressor) 100 mg PO BRK M[facility]ELA PRN Reason: Protocol Last Admin: 02/18/17 08:06 Dose: 100 mg Multivitamins/Minerals (Therapeutic-M Tab) 1 tab PO DAILY M[facility]ELA PRN Reason: Protocol Last Admin: 02/17/17 09:25 Dose: 1 tab Non-Formulary Medication (Colesevelam Hcl [Welchol]) 3 tab PO 0800,1800 [facility] Last Admin: 02/18/17 08:06 Dose: 3 tab Polyethylene Glycol (Miralax) 17 gm PO DAILY PRN PRN Reason: Constipation Silver Sulfadiazine (Silvadene 1% 20 Gm) 0 ea TOP DAILY M[facility]ELA PRN Reason: Protocol Last Admin: 02/17/17 09:26 Dose: 1 applic Tramadol HCl (Ultram) 50 mg PO Q8 PRN; Protocol PRN Reason: Pain, moderate (4-7) Zinc Sulfate (Zinc Sulfate 220 Mg Cap) 220 mg PO DAILY M[facility]ELA PRN Reason: Protocol Last Admin: 02/17/17 09:23 Dose: 220 mg - Labs Labs: 02/17/17 10:30 02/17/17 10:30 - Constitutional Appears: Non-toxic, No Acute Distress - Head Exam Head Exam: NORMAL INSPECTION - Neck Exam Neck Exam: absent: Lymphadenopathy, Meningismus - Respiratory Exam Respiratory Exam: Decreased Breath Sounds - Cardiovascular Exam Cardiovascular Exam: +S1, +S2 - GI/Abdominal Exam GI & Abdominal Exam: Soft. absent: Tenderness - Extremities Exam Additional comments: both legs with dry dressings in place Assessment and Plan - Assessment and Plan (Free Text) Plan: Assessment Left leg cellulitis, slowly improving, growing Pseudomonas, Enterobacter, coagulase negative staph HTN obesity hypothyroidism history of cellulitis of the lower extremities anxiety disorder Plan continue Vancomycin and Zosyn day 7, to complete a 7-10 day course Will continue to monitor clinically
[2017-02-19] MEDS: Piperacillin/Tazobact 3.375 gm 100 ML IVPB SCH ×4 (00:36→18:57)
[2017-02-19] MEDS: Levothyroxine 50 MCG TAB PO SCH (05:35)
[2017-02-19] MEDS: Vancomycin 1gm in NS 250ml 1 GM/250 ML BAG IVPB SCH ×2 (05:36→19:56)
--- NOTE | 2017-02-19 06:46 | PN ---
DATE: 02/18/2017 SUBJECTIVE: The patient was seen and examined on the bedside. was standing on the bedside also. Leg swelling is getting better, still having rash in the groin areas. No nausea, vomiting, or diarrhea, had bowel movement. No headache, no dizziness, no chest pain, no palpitation. PHYSICAL EXAMINATION: VITAL SIGNS: Temperature 98.5, pulse 93, respiratory rate 16, blood pressure 136/78, and pulse oximetry is 98. HEENT: Head normocephalic, atraumatic. Eyes: PERRLA. Extraocular movements intact Conjunctivae clear. Nose patent. Mucous membranes moist. NECK: Supple. No carotid bruit, JVD or thyromegaly. CHEST: Bilaterally symmetrical. HEART: S1, S2 positive. LUNGS: Clear to auscultation. ABDOMEN: Soft. Bowel sounds positive. No organomegaly. EXTREMITIES: There is edema. It is getting better. No cyanosis. NEUROLOGIC: The patient is awake, alert, moving all extremities. No focal deficits. MEDICATIONS: Xanax, vitamin C, Ecotrin, Lotrisone, vitamin D, Lovenox, Pepcid, Lasix, Neurontin, hydralazine, vancomycin, Zosyn. LABORATORY DATA: White blood cells 13.0, hemoglobin 11.7, hematocrit 36.5, platelets 398. Sodium 137, potassium 3.7, BUN 19, creatinine 1.0, glucose 190. ASSESSMENT AND PLAN: The patient is an 81-year-old lady with leukocytosis, anemia, hyperglycemia, history of constipation, got better, history of inguinal candidiasis, put an order, has cellulitis of the leg, slowly improving, growing pseudomonas, enterococcus coagulase negative staph, hypertension, obesity, hypothyroidism, history of cellulitis of the lower extremity, anxiety, insomnia, getting Xanax for anxiety. Continue vancomycin and Zosyn day #7, to be completed 7-10 days' course. We will continue monitoring clinically, seen by the podiatry. Gastrointestinal and deep venous thrombosis prophylaxis. Repeat labs. We will follow up. June Biggs MD cc: [id number] TT: 02/19/2017 06:46:17 Confirmation # [id number] Dictation # [id number]
[2017-02-19] MEDS: Non Formulary Medication (Colesevelam Hcl [Welchol] 3 TAB) PO SCH ×2 (07:49→17:22)
[2017-02-19] MEDS: Clotrimazole/Betamethasone Lotion(30 ml) TOP SCH ×2 (10:58→17:23)
[2017-02-19] MEDS: Nystatin 100,000 Units/gm Topical Pow(15 gm) TOP SCH ×3 (10:58→17:23)
[2017-02-19] MEDS: Multivitamin With Minerals Tab PO SCH (10:58)
[2017-02-19] MEDS: Silver Sulfadiazine 1% Cream (20 gm) TOP SCH (10:59)
[2017-02-19 12:01] LABS: BLOOD UREA NITROGEN 21 mg/dL (7-21); CALCIUM 9.4 mg/dL (8.4-10.5); CARBON DIOXIDE 33 mmol/L (21-33); CHLORIDE 96 mmol/L (98-107); GFR AFRICAN-AMERICAN > 60; GLUCOSE,RANDOM 96 mg/dL (70-110); POTASSIUM 4.2 mmol/L (3.6-5.0); SODIUM 136 mmol/L (132-148)
--- NOTE | 2017-02-19 13:37 | CP.PCM.PN ---
Subjective - Date & Time of Evaluation Date of Evaluation: 02/19/17 Time of Evaluation: 11:00 - Subjective Subjective: Less swelling and pain in the legs, no fevers, no nausea, no diarrhea. Objective - Vital Signs/Intake and Output Vital Signs (last 24 hours): Temp Pulse Resp BP Pulse Ox 98.4 F 73 14 132/78 98 02/18/17 16:00 02/18/17 16:00 02/18/17 16:00 02/19/17 10:57 02/18/17 16:00 - Medications Medications: Current Medications Alprazolam (Xanax) 0.5 mg PO HS MARCELA PRN Reason: Protocol Ascorbic Acid (Vitamin C 500 Mg Tab) 500 mg PO DAILY M[facility]ELA PRN Reason: Protocol Last Admin: 02/19/17 10:58 Dose: 500 mg Aspirin (Ecotrin) 81 mg PO 0800 M[facility]ELA PRN Reason: Protocol Last Admin: 02/19/17 07:49 Dose: 81 mg Betamethasone/Clotrimazole (Lotrisone) 0 ml TOP BID M[facility]ELA PRN Reason: Protocol Last Admin: 02/19/17 10:58 Dose: 1 cer Cholecalciferol (Vitamin D) 2,000 iu PO DAILY M[facility]ELA PRN Reason: Protocol Last Admin: 02/19/17 10:57 Dose: 2,000 iu Famotidine (Pepcid) 40 mg PO HS MARCELA PRN Reason: Protocol Last Admin: 02/18/17 21:47 Dose: 40 mg Furosemide (Lasix) 40 mg PO DAILY M[facility]ELA PRN Reason: Protocol Last Admin: 02/19/17 10:57 Dose: 40 mg Gabapentin (Neurontin) 300 mg PO TID MARCELA PRN Reason: Protocol Last Admin: 02/19/17 10:57 Dose: 300 mg Hydrochlorothiazide (Hydrodiuril) 25 mg PO DAILY [facility]ELA PRN Reason: Protocol Last Admin: 02/19/17 10:58 Dose: 25 mg Vancomycin HCl (Vancomycin 1gm) 1 gm in 250 mls @ 167 mls/hr IVPB 0600,1800 [facility]A PRN Reason: Protocol Last Admin: 02/19/17 05:36 Dose: 167 mls/hr Piperacillin Sod/Tazobactam Sod (Zosyn 3.375 In Ns 100ml) 100 mls @ 200 mls/hr IVPB Q6 M[facility]ELA PRN Reason: Protocol Stop: 02/24/17 20:57 Last Admin: 02/19/17 10:59 Dose: 200 mls/hr Levothyroxine Sodium (Synthroid) 50 mcg PO 0600 MARCELA PRN Reason: Protocol Last Admin: 02/19/17 05:35 Dose: 50 mcg Losartan Potassium (Cozaar) 100 mg PO DAILY MARCELA PRN Reason: Protocol Last Admin: 02/19/17 10:57 Dose: 100 mg Metoprolol Tartrate (Lopressor) 100 mg PO BRK MARCELA PRN Reason: Protocol Last Admin: 02/19/17 07:50 Dose: 100 mg Multivitamins/Minerals (Therapeutic-M Tab) 1 tab PO DAILY MARCELA PRN Reason: Protocol Last Admin: 02/19/17 10:58 Dose: 1 tab Non-Formulary Medication (Colesevelam Hcl [Welchol]) 3 tab PO 0800,1800 [facility] Last Admin: 02/19/17 07:49 Dose: 3 tab Nystatin (Nystop Topical Powder) 0 gm TOP TID [facility] Last Admin: 02/19/17 10:58 Dose: 1 u Polyethylene Glycol (Miralax) 17 gm PO DAILY PRN PRN Reason: Constipation Silver Sulfadiazine (Silvadene 1% 20 Gm) 0 ea TOP DAILY MARCELA PRN Reason: Protocol Last Admin: 02/19/17 10:59 Dose: 1 applic Tramadol HCl (Ultram) 50 mg PO Q8 PRN; Protocol PRN Reason: Pain, moderate (4-7) Last Admin: 02/18/17 10:02 Dose: 50 mg Zinc Sulfate (Zinc Sulfate 220 Mg Cap) 220 mg PO DAILY [facility] PRN Reason: Protocol Last Admin: 02/19/17 10:58 Dose: 220 mg - Labs Labs: 02/17/17 10:30 02/19/17 11:45 - Constitutional Appears: Non-toxic, No Acute Distress - Head Exam Head Exam: NORMAL INSPECTION - ENT Exam ENT Exam: Mucous Membranes Moist - Neck Exam Neck Exam: absent: Lymphadenopathy, Meningismus - Respiratory Exam Respiratory Exam: Decreased Breath Sounds - Cardiovascular Exam Cardiovascular Exam: +S1, +S2 - GI/Abdominal Exam GI & Abdominal Exam: Soft. absent: Tenderness - Extremities Exam Additional comments: both legs with dry dressings in place Assessment and Plan - Assessment and Plan (Free Text) Plan: Assessment Left leg cellulitis, slowly improving, growing Pseudomonas, Enterobacter, coagulase negative staph HTN obesity hypothyroidism history of cellulitis of the lower extremities anxiety disorder Plan continue Vancomycin and Zosyn day 8, to complete a 10 day course Will continue to monitor clinically
--- NOTE | 2017-02-19 16:05 | CP.PCM.PN ---
<Chela Bliss - Last Filed: 02/19/17 16:51> Subjective - Date & Time of Evaluation Date of Evaluation: 02/19/17 Time of Evaluation: 16:03 - Subjective Subjective: 81 year old female was seen resting at bedside with attending, Dr. Melendrez regarding bilateral leg ulcers and cellulitis. She admits that her toenails are long and would like them cut. Dressing clean, dry, intact b/l. Patient denies any pain. She denies any n/v/f/c/sob/cp. Objective - Vital Signs/Intake and Output Vital Signs (last 24 hours): Temp Pulse Resp BP Pulse Ox 98.4 F 73 14 132/78 98 02/18/17 16:00 02/18/17 16:00 02/18/17 16:00 02/19/17 10:57 02/18/17 16:00 - Medications Medications: Current Medications Alprazolam (Xanax) 0.5 mg PO HS MARCELA PRN Reason: Protocol Ascorbic Acid (Vitamin C 500 Mg Tab) 500 mg PO DAILY M[facility]ELA PRN Reason: Protocol Last Admin: 02/19/17 10:58 Dose: 500 mg Aspirin (Ecotrin) 81 mg PO 0800 [facility]ELA PRN Reason: Protocol Last Admin: 02/19/17 07:49 Dose: 81 mg Betamethasone/Clotrimazole (Lotrisone) 0 ml TOP BID [facility]ELA PRN Reason: Protocol Last Admin: 02/19/17 10:58 Dose: 1 cer Cholecalciferol (Vitamin D) 2,000 iu PO DAILY [facility]A PRN Reason: Protocol Last Admin: 02/19/17 10:57 Dose: 2,000 iu Famotidine (Pepcid) 40 mg PO HS M[facility]ELA PRN Reason: Protocol Last Admin: 02/18/17 21:47 Dose: 40 mg Furosemide (Lasix) 40 mg PO DAILY [facility]A PRN Reason: Protocol Last Admin: 02/19/17 10:57 Dose: 40 mg Gabapentin (Neurontin) 300 mg PO TID M[facility]ELA PRN Reason: Protocol Last Admin: 02/19/17 13:40 Dose: 300 mg Hydrochlorothiazide (Hydrodiuril) 25 mg PO DAILY M[facility]ELA PRN Reason: Protocol Last Admin: 02/19/17 10:58 Dose: 25 mg Vancomycin HCl (Vancomycin 1gm) 1 gm in 250 mls @ 167 mls/hr IVPB 0600,1800 [facility]A PRN Reason: Protocol Last Admin: 02/19/17 05:36 Dose: 167 mls/hr Piperacillin Sod/Tazobactam Sod (Zosyn 3.375 In Ns 100ml) 100 mls @ 200 mls/hr IVPB Q6 M[facility]ELA PRN Reason: Protocol Stop: 02/24/17 20:57 Last Admin: 02/19/17 10:59 Dose: 200 mls/hr Levothyroxine Sodium (Synthroid) 50 mcg PO 0600 M[facility]ELA PRN Reason: Protocol Last Admin: 02/19/17 05:35 Dose: 50 mcg Losartan Potassium (Cozaar) 100 mg PO DAILY M[facility]ELA PRN Reason: Protocol Last Admin: 02/19/17 10:57 Dose: 100 mg Metoprolol Tartrate (Lopressor) 100 mg PO BRK MARCELA PRN Reason: Protocol Last Admin: 02/19/17 07:50 Dose: 100 mg Multivitamins/Minerals (Therapeutic-M Tab) 1 tab PO DAILY MARCELA PRN Reason: Protocol Last Admin: 02/19/17 10:58 Dose: 1 tab Non-Formulary Medication (Colesevelam Hcl [Welchol]) 3 tab PO 0800,1800 [facility] Last Admin: 02/19/17 07:49 Dose: 3 tab Nystatin (Nystop Topical Powder) 0 gm TOP TID MARCELA Last Admin: 02/19/17 13:39 Dose: 1 u Polyethylene Glycol (Miralax) 17 gm PO DAILY PRN PRN Reason: Constipation Silver Sulfadiazine (Silvadene 1% 20 Gm) 0 ea TOP DAILY MARCELA PRN Reason: Protocol Last Admin: 02/19/17 10:59 Dose: 1 applic Tramadol HCl (Ultram) 50 mg PO Q8 PRN; Protocol PRN Reason: Pain, moderate (4-7) Last Admin: 02/18/17 10:02 Dose: 50 mg Zinc Sulfate (Zinc Sulfate 220 Mg Cap) 220 mg PO DAILY MARCELA PRN Reason: Protocol Last Admin: 02/19/17 10:58 Dose: 220 mg - Labs Labs: 02/17/17 10:30 02/19/17 11:45 - Constitutional Appears: Non-toxic, No Acute Distress - Extremities Exam Additional comments: lower extremity focused exam: Vasc: DP and PT pulses palpable b/l. Skin temperature warm to warm b/l. Derm: Ulcer noted to anterior lizama on the right due to trauma, tender to touch, no malodor, no purulence, no drainage noted. Peirwound is erythematous. On the right she has an ulceration that is healing, with mild drainage noted, no purlence, no malodor noted. Erythema noted b/l but slowly resolving. Nails 1- 5 b/l thickened, elongated, dystrophic. Neuro:Gross sensation diminished b/l - Neurological Exam Neurological Exam: Alert, Awake, Oriented x3 - Psychiatric Exam Psychiatric exam: Normal Affect, Normal Mood Assessment and Plan - Assessment and Plan (Free Text) Assessment: 81 year old female with bilateral leg ulcerations and cellulitis Plan: patient examined and evaluated with attending, Dr. Melendrez chart, vitals, labs reviewed legs cleansed with normal sterile saline nails 1-5 b/l were excionally debrided without incident dressed with foam gauze w/o adhesive, and kerlix-no tape/ adhesive to be put directly on skin continue iv abx per ID continue vitamins podiatry will continue to follow patient while in house patient to follow up with Dr. Spear after D/C <Dom Melendrez - Last Filed: 02/22/17 11:09> Objective - Vital Signs/Intake and Output Vital Signs (last 24 hours): Temp Pulse Resp BP Pulse Ox 98 F 67 18 115/65 98 02/22/17 10:00 02/22/17 10:00 02/22/17 10:00 02/22/17 10:00 02/22/17 10:00 Intake and Output: 02/22/17 02/22/17 06:59 18:59 Intake Total 620 Balance 620 - Medications Medications: Current Medications Alprazolam (Xanax) 0.5 mg PO HS MARCELA PRN Reason: Protocol Last Admin: 02/21/17 21:21 Dose: 0.5 mg Ascorbic Acid (Vitamin C 500 Mg Tab) 500 mg PO DAILY M[facility]ELA PRN Reason: Protocol Last Admin: 02/20/17 11:00 Dose: 500 mg Aspirin (Ecotrin) 81 mg PO 0800 M[facility]ELA PRN Reason: Protocol Last Admin: 02/22/17 09:57 Dose: 81 mg Betamethasone/Clotrimazole (Lotrisone) 0 ml TOP BID M[facility]ELA PRN Reason: Protocol Last Admin: 02/22/17 10:02 Dose: 1 applic Cholecalciferol (Vitamin D) 2,000 iu PO DAILY [facility]ELA PRN Reason: Protocol Last Admin: 02/20/17 11:00 Dose: 2,000 iu Famotidine (Pepcid) 40 mg PO HS M[facility]ELA PRN Reason: Protocol Last Admin: 02/21/17 21:22 Dose: 40 mg Furosemide (Lasix) 40 mg PO DAILY M[facility]ELA PRN Reason: Protocol Last Admin: 02/22/17 10:01 Dose: 40 mg Gabapentin (Neurontin) 300 mg PO TID M[facility]ELA PRN Reason: Protocol Last Admin: 02/22/17 10:03 Dose: 300 mg Hydrochlorothiazide (Hydrodiuril) 25 mg PO DAILY [facility]ELA PRN Reason: Protocol Last Admin: 02/22/17 10:01 Dose: 25 mg Levothyroxine Sodium (Synthroid) 50 mcg PO 0600 M[facility]ELA PRN Reason: Protocol Last Admin: 02/22/17 05:39 Dose: 50 mcg Losartan Potassium (Cozaar) 100 mg PO DAILY [facility]ELA PRN Reason: Protocol Last Admin: 02/22/17 10:00 Dose: 100 mg Metoprolol Tartrate (Lopressor) 100 mg PO BRK M[facility]ELA PRN Reason: Protocol Last Admin: 02/22/17 09:58 Dose: 100 mg Multivitamins/Minerals (Therapeutic-M Tab) 1 tab PO DAILY M[facility]ELA PRN Reason: Protocol Last Admin: 02/20/17 11:00 Dose: 1 tab Non-Formulary Medication (Colesevelam Hcl [Welchol]) 3 tab PO 0800,1800 [facility] Last Admin: 02/22/17 09:57 Dose: 3 tab Nystatin (Nystop Topical Powder) 0 gm TOP TID [facility] Last Admin: 02/22/17 10:03 Dose: 1 u Polyethylene Glycol (Miralax) 17 gm PO DAILY PRN PRN Reason: Constipation Silver Sulfadiazine (Silvadene 1% 20 Gm) 0 ea TOP DAILY [facility]ELA PRN Reason: Protocol Last Admin: 02/20/17 11:00 Dose: 1 applic Tramadol HCl (Ultram) 50 mg PO Q8 PRN; Protocol PRN Reason: Pain, moderate (4-7) Last Admin: 02/18/17 10:02 Dose: 50 mg Zinc Sulfate (Zinc Sulfate 220 Mg Cap) 220 mg PO DAILY M[facility]ELA PRN Reason: Protocol Last Admin: 02/22/17 10:04 Dose: 220 mg - Labs Labs: 02/17/17 10:30 02/19/17 11:45 Attending/Attestation - Attestation I have personally seen and examined this patient.: Yes I have fully participated in the care of the patient.: Yes I have reviewed all pertinent clinical information, including history, physical exam and plan: Yes
[2017-02-20] MEDS: Levothyroxine 50 MCG TAB PO SCH (06:09)
[2017-02-20] MEDS: Piperacillin/Tazobact 3.375 gm 100 ML IVPB SCH ×3 (06:10→23:57)
[2017-02-20] MEDS: Vancomycin 1gm in NS 250ml 1 GM/250 ML BAG IVPB SCH ×2 (06:20→18:27)
--- NOTE | 2017-02-20 07:10 | PN ---
DATE: 02/19/2017 SUBJECTIVE: The patient was seen and examined on the bedside. was sitting on the bedside al so. Swelling of the leg is getting better. Still has rash on the inguinal area. No hematuria or he matochezia. No chest pain, no shortness of breath. No headache, no dizziness. PHYSICAL EXAMINATION: VITAL SIGNS: Temperature is 98.4, pulse 73, respiratory rate 14, blood pressure 130/70, pulse oximet ry 98. HEENT: Head normocephalic, atraumatic. Eyes: PERRLA. Extraocular muscles intact. Conjunctivae cl ear. Nose patent. Mucous membranes moist. NECK: Supple. No carotid bruit, JVD or thyromegaly. CHEST: Bilaterally symmetrical. HEART: S1, S2 positive. LUNGS: Clear to auscultation. ABDOMEN: Soft. Bowel sounds positive. No organomegaly. EXTREMITIES: Have trace edema and cyanosis and redness. NEUROLOGIC: The patient is awake, alert, moving all 4 extremities. No focal deficits. MEDICATIONS: Xanax, vitamin C, Ecotrin, Lotrisone cream, vitamin D, nystatin powder, hydrochlorothia zide, vancomycin, Zosyn, Synthroid. LABORATORY DATA: White blood cell 13.0, hemoglobin 11.7, hematocrit 36.5, and platelets 398. Sodium 133, potassium 4.2, BUN 20, creatinine 1.0. Glucose 96. ASSESSMENT AND PLAN: The patient is an 81-year-old lady with multiple medical problems, swelling of the left leg, slowly improving cellulitis growing pseudomonas, enterobacter coagulase. Negative Stap hylococcus. Hypertension, obesity, hypothyroidism, history of cellulitis of the lower extremity, anx iety disorder, obesity, tinea inguinal, history of constipation, got better. Continue vancomycin and Zosyn, complete the day 10. Gastrointestinal and deep venous thrombosis prophylaxis, out of bed, ph ysical therapy. We will follow up. June Biggs MD cc: [id number] TT: 02/20/2017 07:09:58 Confirmation # [id number] Dictation # [id number]
[2017-02-20] MEDS: Non Formulary Medication (Colesevelam Hcl [Welchol] 3 TAB) PO SCH ×2 (08:32→18:23)
[2017-02-20] MEDS: Nystatin 100,000 Units/gm Topical Pow(15 gm) TOP SCH ×3 (11:00→18:26)
[2017-02-20] MEDS: Silver Sulfadiazine 1% Cream (20 gm) TOP SCH (11:00)
[2017-02-20] MEDS: Multivitamin With Minerals Tab PO SCH (11:00)
[2017-02-20] MEDS: Clotrimazole/Betamethasone Lotion(30 ml) TOP SCH ×2 (11:00→18:48)
--- NOTE | 2017-02-20 14:18 | CP.PCM.PN ---
<Tami Singh - Last Filed: 02/20/17 14:11> Subjective - Date & Time of Evaluation Date of Evaluation: 02/20/17 Time of Evaluation: 13:15 - Subjective Subjective: 81 year old female patient seen at bedside in [facility] today with attending Dr. Spear present regarding bilateral lower extremity ulcerations with cellulitis. Pt seen sitting at bedside chairs with legs in dependent position at time of visit. Pt denies any acute events overnight, denies f/n/v/c/sob/cp, denies any pain or discomfort to the legs. Says she wears the stockings during the day and has them taken off at night. Says she feels the cream is helping the legs. Denies any other problems at this time. Objective - Vital Signs/Intake and Output Vital Signs (last 24 hours): Temp Pulse Resp BP Pulse Ox 98 F 59 L 18 139/73 97 02/20/17 10:00 02/20/17 10:00 02/20/17 10:00 02/20/17 11:21 02/20/17 10:00 - Medications Medications: Current Medications Alprazolam (Xanax) 0.5 mg PO HS MARCELA PRN Reason: Protocol Last Admin: 02/19/17 22:44 Dose: 0.5 mg Ascorbic Acid (Vitamin C 500 Mg Tab) 500 mg PO DAILY MARCELA PRN Reason: Protocol Last Admin: 02/20/17 11:00 Dose: 500 mg Aspirin (Ecotrin) 81 mg PO 0800 MARCELA PRN Reason: Protocol Last Admin: 02/20/17 08:33 Dose: 81 mg Betamethasone/Clotrimazole (Lotrisone) 0 ml TOP BID MARCELA PRN Reason: Protocol Last Admin: 02/20/17 11:00 Dose: 1 applic Cholecalciferol (Vitamin D) 2,000 iu PO DAILY MARCELA PRN Reason: Protocol Last Admin: 02/20/17 11:00 Dose: 2,000 iu Famotidine (Pepcid) 40 mg PO HS MARCELA PRN Reason: Protocol Last Admin: 02/19/17 22:43 Dose: 40 mg Furosemide (Lasix) 40 mg PO DAILY MARCELA PRN Reason: Protocol Last Admin: 02/20/17 11:21 Dose: 40 mg Gabapentin (Neurontin) 300 mg PO TID MARCELA PRN Reason: Protocol Last Admin: 02/20/17 13:28 Dose: 300 mg Hydrochlorothiazide (Hydrodiuril) 25 mg PO DAILY MARCELA PRN Reason: Protocol Last Admin: 02/20/17 11:00 Dose: 25 mg Vancomycin HCl (Vancomycin 1gm) 1 gm in 250 mls @ 167 mls/hr IVPB 0600,1800 MARCELA PRN Reason: Protocol Last Admin: 02/20/17 06:20 Dose: 167 mls/hr Piperacillin Sod/Tazobactam Sod (Zosyn 3.375 In Ns 100ml) 100 mls @ 200 mls/hr IVPB Q6 MARCELA PRN Reason: Protocol Stop: 02/24/17 20:57 Last Admin: 02/20/17 06:10 Dose: 200 mls/hr Levothyroxine Sodium (Synthroid) 50 mcg PO 0600 MARCELA PRN Reason: Protocol Last Admin: 02/20/17 06:09 Dose: 50 mcg Losartan Potassium (Cozaar) 100 mg PO DAILY MARCELA PRN Reason: Protocol Last Admin: 02/20/17 11:00 Dose: 100 mg Metoprolol Tartrate (Lopressor) 100 mg PO BRK MARCELA PRN Reason: Protocol Last Admin: 02/20/17 08:33 Dose: 100 mg Multivitamins/Minerals (Therapeutic-M Tab) 1 tab PO DAILY MARCELA PRN Reason: Protocol Last Admin: 02/20/17 11:00 Dose: 1 tab Non-Formulary Medication (Colesevelam Hcl [Welchol]) 3 tab PO 0800,1800 [facility] Last Admin: 02/20/17 08:32 Dose: 3 tab Nystatin (Nystop Topical Powder) 0 gm TOP TID MARCELA Last Admin: 02/20/17 13:28 Dose: 1 u Polyethylene Glycol (Miralax) 17 gm PO DAILY PRN PRN Reason: Constipation Silver Sulfadiazine (Silvadene 1% 20 Gm) 0 ea TOP DAILY MARCELA PRN Reason: Protocol Last Admin: 02/20/17 11:00 Dose: 1 applic Tramadol HCl (Ultram) 50 mg PO Q8 PRN; Protocol PRN Reason: Pain, moderate (4-7) Last Admin: 02/18/17 10:02 Dose: 50 mg Zinc Sulfate (Zinc Sulfate 220 Mg Cap) 220 mg PO DAILY MARCELA PRN Reason: Protocol Last Admin: 02/20/17 11:00 Dose: 220 mg - Labs Labs: 02/17/17 10:30 02/19/17 11:45 - Constitutional Appears: Well, Non-toxic, No Acute Distress - Extremities Exam Extremities Exam: absent: Calf Tenderness Additional comments: Bilateral lower ext exam Vasc: DP& PT pulses are palpable bl, skin temp runs within normal limits,cap refil < 3 sec to all digits, 2+ pitting edema noted to ant. aspect of legs and dorsum of feet bl NEURO: pedal sensation is grossly diminished bl DERM there is a small superficial ulceration noted to the right leg anterior lizama with no malodor, no drainage, slight lexie-wound erythema is noted. There is a healed ulceration noted to the left central lizama with no malodor, no drainage, no fluctuance, there is erythema noted to the distal 1/3 of bilateral legs however appears to be resolving. - Neurological Exam Neurological Exam: Alert, Awake, Oriented x3 - Psychiatric Exam Psychiatric exam: Normal Affect, Normal Mood Assessment and Plan - Assessment and Plan (Free Text) Assessment: 81 year old female with superficial ulceration to right leg and healed ulceration to left leg with bilateral lower extremity cellulitis (improving) Plan: -Pt S&E at bedside with Dr. Spear present -Chart, labs, vitals reviewed: afrebile, WBC 13.0 on 02/17 -bilateral legs cleansed with wipes, dimethicone cream applied to both legs -New tubigrips stockings applied to bl legs, stockings to be removed at bedtime -Stable per podiatry -will continue to follow while she remains in house <Estelita Spear - Last Filed: 03/10/17 16:37> Objective - Vital Signs/Intake and Output Vital Signs (last 24 hours): Temp Pulse Resp BP Pulse Ox 97.8 F 77 20 120/58 L 98 02/22/17 16:00 02/23/17 08:22 02/22/17 16:00 02/23/17 10:15 02/22/17 10:00 - Labs Labs: 02/17/17 10:30 02/19/17 11:45
[2017-02-22] MEDS: Levothyroxine 50 MCG TAB PO SCH (05:39)
[2017-02-22] MEDS: Non Formulary Medication (Colesevelam Hcl [Welchol] 3 TAB) PO SCH ×3 (07:55→17:03)
--- NOTE | 2017-02-22 08:17 | PN ---
DATE: 02/21/2017 SUBJECTIVE: This is an 81-year-old female patient who was seen at bedside in TCU this morning for followup of bilateral lower extremity cellulitis with bilateral leg wounds. The patient is seen resting comfortably in bedside chair at time of visit. Denies any acute overnight events. Denies any numbness or tingling to the legs. Does complain of some slight tenderness to the left lizama today. The patient says that she has been wearing the stockings that were provided to her and has been taking off at night time as directed. The patient denies any fever, nausea, vomiting, chills, shortness of breath, chest pain. The patient denies any other pedal complaints at this time. Also says that cream has been helping significantly for the legs. LOWER EXTREMITY EXAMINATION: VASCULAR: Pedal pulses are palpable bilaterally. Capillary refill time is less than 4 seconds to digits x 10. Slight nonpitting edema noted to distal 1/ 3 of the legs bilaterally. Skin temperature is within normal limits bilaterally. NEUROLOGIC: Pedal sensation is grossly intact bilaterally. DERMATOLOGICAL: Well-healed ulceration noted to distal medial aspect of left leg. There appears to be no drainage, no malodor, no fluctuance, no signs of infection. There does appear to be resolving erythema surrounding this wound of the distal left leg. On the right leg, there is a superficial ulceration that appears to be healing well with surrounding erythema. No drainage, no malodor, no purulence, no signs of infection. ORTHO: No tenderness noted on palpation of right leg. Slight tenderness noted on palpation of distal lateral anterior aspect of lizama. ASSESSMENT: An 81-year-old female patient with resolving cellulitis of lower extremities bilaterally with healing ulcerations of legs. PLAN: The patient is seen and evaluated at bedside in the TCU. Discussed plan with Dr. Spear in detail. Legs cleansed with sterile saline. Dimethicone cream applied to legs bilaterally. Tubigrip stocking reapplied to the legs. Advised the patient to keep legs elevated as much as possible throughout the day to help with swelling and pain. The patient is to have stockings removed at night time. The patient is stable, per podiatry service. We will continue while she remains in-house. JOELLE FLORENCE DPM Estelita Spear DPM cc: [id number] TT: 02/21/2017 11:55:04 Confirmation # [id number] Dictation # [id number] MTDD
[2017-02-22] MEDS: Clotrimazole/Betamethasone Lotion(30 ml) TOP SCH ×2 (10:02→17:04)
[2017-02-22] MEDS: Nystatin 100,000 Units/gm Topical Pow(15 gm) TOP SCH ×3 (10:03→17:05)
[2017-02-22 10:56] VITALS: O2SAT 98
--- NOTE | 2017-02-22 12:47 | CP.PCM.PN ---
<Tami Singh - Last Filed: 02/22/17 12:44> Subjective - Date & Time of Evaluation Date of Evaluation: 02/22/17 Time of Evaluation: 11:55 - Subjective Subjective: 81 year old female patient seen at bedside in [facility] today with Dr. Melendrez present regarding bilateral lower extremity ulcerations with cellulitis. Pt seen sitting at bedside chair with legs elevated at time of visit. present at bedside. Pt denies any pain or discomfort to the legs today, says they feel much better. denies f/n/v/c/sob/cp. Also says that she may be going home tomorrow. Objective - Vital Signs/Intake and Output Vital Signs (last 24 hours): Temp Pulse Resp BP Pulse Ox 98 F 67 18 115/65 98 02/22/17 10:00 02/22/17 10:00 02/22/17 10:00 02/22/17 10:00 02/22/17 10:00 Intake and Output: 02/22/17 02/22/17 06:59 18:59 Intake Total 620 Balance 620 - Medications Medications: Current Medications Alprazolam (Xanax) 0.5 mg PO HS MARCELA PRN Reason: Protocol Last Admin: 02/21/17 21:21 Dose: 0.5 mg Ascorbic Acid (Vitamin C 500 Mg Tab) 500 mg PO DAILY MARCELA PRN Reason: Protocol Last Admin: 02/20/17 11:00 Dose: 500 mg Aspirin (Ecotrin) 81 mg PO 0800 MARCELA PRN Reason: Protocol Last Admin: 02/22/17 09:57 Dose: 81 mg Betamethasone/Clotrimazole (Lotrisone) 0 ml TOP BID MARCELA PRN Reason: Protocol Last Admin: 02/22/17 10:02 Dose: 1 applic Cholecalciferol (Vitamin D) 2,000 iu PO DAILY MARCELA PRN Reason: Protocol Last Admin: 02/20/17 11:00 Dose: 2,000 iu Famotidine (Pepcid) 40 mg PO HS MARCELA PRN Reason: Protocol Last Admin: 02/21/17 21:22 Dose: 40 mg Furosemide (Lasix) 40 mg PO DAILY MARCELA PRN Reason: Protocol Last Admin: 02/22/17 10:01 Dose: 40 mg Gabapentin (Neurontin) 300 mg PO TID MARCELA PRN Reason: Protocol Last Admin: 02/22/17 10:03 Dose: 300 mg Hydrochlorothiazide (Hydrodiuril) 25 mg PO DAILY MARCELA PRN Reason: Protocol Last Admin: 02/22/17 10:01 Dose: 25 mg Levothyroxine Sodium (Synthroid) 50 mcg PO 0600 MARCELA PRN Reason: Protocol Last Admin: 02/22/17 05:39 Dose: 50 mcg Losartan Potassium (Cozaar) 100 mg PO DAILY MARCELA PRN Reason: Protocol Last Admin: 02/22/17 10:00 Dose: 100 mg Metoprolol Tartrate (Lopressor) 100 mg PO BRK MARCELA PRN Reason: Protocol Last Admin: 02/22/17 09:58 Dose: 100 mg Multivitamins/Minerals (Therapeutic-M Tab) 1 tab PO DAILY MARCELA PRN Reason: Protocol Last Admin: 02/20/17 11:00 Dose: 1 tab Non-Formulary Medication (Colesevelam Hcl [Welchol]) 3 tab PO 0800,1800 [facility] Last Admin: 02/22/17 09:57 Dose: 3 tab Nystatin (Nystop Topical Powder) 0 gm TOP TID [facility] Last Admin: 02/22/17 10:03 Dose: 1 u Polyethylene Glycol (Miralax) 17 gm PO DAILY PRN PRN Reason: Constipation Silver Sulfadiazine (Silvadene 1% 20 Gm) 0 ea TOP DAILY MARCELA PRN Reason: Protocol Last Admin: 02/20/17 11:00 Dose: 1 applic Tramadol HCl (Ultram) 50 mg PO Q8 PRN; Protocol PRN Reason: Pain, moderate (4-7) Last Admin: 02/18/17 10:02 Dose: 50 mg Zinc Sulfate (Zinc Sulfate 220 Mg Cap) 220 mg PO DAILY MARCELA PRN Reason: Protocol Last Admin: 02/22/17 10:04 Dose: 220 mg - Labs Labs: 02/17/17 10:30 02/19/17 11:45 - Constitutional Appears: Well, Non-toxic, No Acute Distress - Extremities Exam Extremities Exam: absent: Calf Tenderness Additional comments: Bilateral lower ext exam Vasc: DP/ PT pulses are palpable bl, skin temp runs within normal limits,cap refil < 3 sec to all digits, 2+ pitting edema noted to ant. aspect of legs and dorsum of feet bl NEURO: pedal sensation is grossly diminished bl DERM: ulcerations of both legs appeared well-healed, cellulitis much improved and erythema is regressing, no malodor, no drainage - Neurological Exam Neurological Exam: Alert, Awake, Oriented x3 - Psychiatric Exam Psychiatric exam: Normal Affect, Normal Mood Assessment and Plan - Assessment and Plan (Free Text) Assessment: 81 year old female with healed ulcerations and resolving cellulitis of bilateral lower extremities. Plan: -Pt S&E at bedside with Dr. Melendrez present -Chart, labs, vitals reviewed -Bilateral cleansed cleansed with sterile normal saline, dimethicone cream applied to both legs -Tubigrip stocking reapplied. Advised patient to wear stocking during day and keeps legs elevated as much as possible -Stockings to be removed at nighttime. New pair of stockings dispensed to patient -Stable per podiatry -Pt advised to follow up with Dr. Spear/ Dr. Melendrez at the wound care center following discharge. <Dom Melendrez - Last Filed: 02/22/17 16:43> Objective - Vital Signs/Intake and Output Vital Signs (last 24 hours): Temp Pulse Resp BP Pulse Ox 97.8 F 71 20 145/86 98 02/22/17 16:00 02/22/17 16:00 02/22/17 16:00 02/22/17 16:00 02/22/17 10:00 Intake and Output: 02/22/17 02/22/17 06:59 18:59 Intake Total 620 Balance 620 - Medications Medications: Current Medications Alprazolam (Xanax) 0.5 mg PO HS MARCELA PRN Reason: Protocol Last Admin: 02/21/17 21:21 Dose: 0.5 mg Ascorbic Acid (Vitamin C 500 Mg Tab) 500 mg PO DAILY MARCELA PRN Reason: Protocol Last Admin: 02/22/17 13:32 Dose: 500 mg Aspirin (Ecotrin) 81 mg PO 0800 MARCELA PRN Reason: Protocol Last Admin: 02/22/17 09:57 Dose: 81 mg Betamethasone/Clotrimazole (Lotrisone) 0 ml TOP BID MARCELA PRN Reason: Protocol Last Admin: 02/22/17 10:02 Dose: 1 applic Cholecalciferol (Vitamin D) 2,000 iu PO DAILY MARCELA PRN Reason: Protocol Last Admin: 02/22/17 13:33 Dose: 2,000 iu Famotidine (Pepcid) 40 mg PO HS MARCELA PRN Reason: Protocol Last Admin: 02/21/17 21:22 Dose: 40 mg Furosemide (Lasix) 40 mg PO DAILY MARCELA PRN Reason: Protocol Last Admin: 02/22/17 10:01 Dose: 40 mg Gabapentin (Neurontin) 300 mg PO TID MARCELA PRN Reason: Protocol Last Admin: 02/22/17 13:31 Dose: 300 mg Hydrochlorothiazide (Hydrodiuril) 25 mg PO DAILY MARCELA PRN Reason: Protocol Last Admin: 02/22/17 10:01 Dose: 25 mg Levothyroxine Sodium (Synthroid) 50 mcg PO 0600 MARCELA PRN Reason: Protocol Last Admin: 02/22/17 05:39 Dose: 50 mcg Losartan Potassium (Cozaar) 100 mg PO DAILY MARCELA PRN Reason: Protocol Last Admin: 02/22/17 10:00 Dose: 100 mg Metoprolol Tartrate (Lopressor) 100 mg PO BRK MARCELA PRN Reason: Protocol Last Admin: 02/22/17 09:58 Dose: 100 mg Multivitamins/Minerals (Therapeutic-M Tab) 1 tab PO DAILY MARCELA PRN Reason: Protocol Last Admin: 02/22/17 13:32 Dose: 1 tab Non-Formulary Medication (Colesevelam Hcl [Welchol]) 3 tab PO 0800,1800 [facility] Last Admin: 02/22/17 09:57 Dose: 3 tab Nystatin (Nystop Topical Powder) 0 gm TOP TID MARCELA Last Admin: 02/22/17 13:31 Dose: 1 u Polyethylene Glycol (Miralax) 17 gm PO DAILY PRN PRN Reason: Constipation Silver Sulfadiazine (Silvadene 1% 20 Gm) 0 ea TOP DAILY MARCELA PRN Reason: Protocol Last Admin: 02/22/17 13:32 Dose: 1 applic Tramadol HCl (Ultram) 50 mg PO Q8 PRN; Protocol PRN Reason: Pain, moderate (4-7) Last Admin: 02/18/17 10:02 Dose: 50 mg Zinc Sulfate (Zinc Sulfate 220 Mg Cap) 220 mg PO DAILY MARCELA PRN Reason: Protocol Last Admin: 02/22/17 10:04 Dose: 220 mg - Labs Labs: 02/17/17 10:30 02/19/17 11:45 Attending/Attestation - Attestation I have personally seen and examined this patient.: Yes I have fully participated in the care of the patient.: Yes I have reviewed all pertinent clinical information, including history, physical exam and plan: Yes
[2017-02-22] MEDS: Silver Sulfadiazine 1% Cream (20 gm) TOP SCH (13:32)
[2017-02-22] MEDS: Multivitamin With Minerals Tab PO SCH (13:32)
[2017-02-22 16:36] VITALS: RESP 20; TEMP 97.8
[2017-02-23] MEDS: Levothyroxine 50 MCG TAB PO SCH (06:20)
[2017-02-23] MEDS: Non Formulary Medication (Colesevelam Hcl [Welchol] 3 TAB) PO SCH (08:20)
[2017-02-23 08:25] VITALS: PULSE 77
[2017-02-23] MEDS: Clotrimazole/Betamethasone Lotion(30 ml) TOP SCH (10:15)
[2017-02-23] MEDS: Silver Sulfadiazine 1% Cream (20 gm) TOP SCH (10:16)
[2017-02-23] MEDS: Nystatin 100,000 Units/gm Topical Pow(15 gm) TOP SCH (10:16)
[2017-02-23] MEDS: Multivitamin With Minerals Tab PO SCH (10:17)
[2017-02-23 10:21] VITALS: BP 120/58
--- NOTE | 2017-02-23 10:44 | PN ---
DATE: 02/22/2017 SUBJECTIVE: The patient was seen and examined on the bedside. Looking comfortable. No nausea, vomi ting, or diarrhea. No hematuria or hematochezia. Leg swelling is getting better. No headache, no d izziness. PHYSICAL EXAMINATION: VITAL SIGNS: Temperature 97.8, pulse 77, respiratory rate 20. HEENT: Head normocephalic, atraumatic. Eyes: PERRLA. Extraocular muscles intact. Conjunctivae cl ear. Nose patent. Mucous membranes moist. NECK: Supple. No carotid bruit, JVD or thyromegaly. CHEST: Bilaterally symmetrical. HEART: S1, S2 positive. LUNGS: Clear to auscultation. ABDOMEN: Soft. Bowel sounds present. No organomegaly. EXTREMITIES: Trace edema, no cyanosis. NEUROLOGIC: The patient is awake, alert and moving all 4 extremities. No focal deficits. MEDICATIONS: Welchol, Cozaar, Ecotrin, hydrochlorothiazide, Lasix, Lopressor, Lotrisone. LABORATORY DATA: We do not have recent labs today, but I reviewed old labs. ASSESSMENT AND PLAN: The patient is an 81-year-old lady seen and examined on 02/22/17, has anemia, le ukocytosis, cellulitis of the leg, slowly improving, growing pseudomonas, Enterobacter, coagulase neg ative staph. Hypertension, obesity, hypothyroidism, anxiety disorder, history of constipation, impro jenny. History of So inguinal, improved; was getting vancomycin and Zosyn, almost completed the c ourse. Out of bed and physical therapy. We will follow up. June Biggs MD cc: [id number] TT: 02/23/2017 10:43:42 Confirmation # [id number] Dictation # [id number]
--- NOTE | 2017-02-23 11:40 | CP.PCM.PN ---
<Bj Rouse - Last Filed: 02/23/17 11:36> Subjective - Date & Time of Evaluation Date of Evaluation: 02/23/17 Time of Evaluation: 09:10 - Subjective Subjective: 81 year old female patient seen at bedside in [facility] today, with attending Dr. Melendrez present, regarding bilateral lower extremity pre-ulcerative areas and erythema. Pt seen sitting at bedside chairs with legs in dependent position at time of visit. Pt denies any acute events overnight, denies f/n/v/c/sob/cp, denies any pain or discomfort to the legs. Says she wears the stockings during the day and has them taken off at night. Says she feels the cream is helping the legs. Denies any other problems at this time. Objective - Vital Signs/Intake and Output Vital Signs (last 24 hours): Temp Pulse Resp BP Pulse Ox 97.8 F 77 20 120/58 L 98 02/22/17 16:00 02/23/17 08:22 02/22/17 16:00 02/23/17 10:15 02/22/17 10:00 - Medications Medications: Current Medications Alprazolam (Xanax) 0.5 mg PO HS MARCELA PRN Reason: Protocol Last Admin: 02/22/17 21:50 Dose: 0.5 mg Ascorbic Acid (Vitamin C 500 Mg Tab) 500 mg PO DAILY MARCELA PRN Reason: Protocol Last Admin: 02/23/17 10:17 Dose: 500 mg Aspirin (Ecotrin) 81 mg PO 0800 MARCELA PRN Reason: Protocol Last Admin: 02/23/17 08:21 Dose: 81 mg Betamethasone/Clotrimazole (Lotrisone) 0 ml TOP BID MARCELA PRN Reason: Protocol Last Admin: 02/23/17 10:15 Dose: 1 applic Cholecalciferol (Vitamin D) 2,000 iu PO DAILY MARCELA PRN Reason: Protocol Last Admin: 02/23/17 10:18 Dose: 2,000 iu Famotidine (Pepcid) 40 mg PO HS MARCELA PRN Reason: Protocol Last Admin: 02/22/17 21:41 Dose: 40 mg Furosemide (Lasix) 40 mg PO DAILY MARCELA PRN Reason: Protocol Last Admin: 02/23/17 10:15 Dose: 40 mg Gabapentin (Neurontin) 300 mg PO TID MARCELA PRN Reason: Protocol Last Admin: 02/23/17 10:16 Dose: 300 mg Hydrochlorothiazide (Hydrodiuril) 25 mg PO DAILY MARCELA PRN Reason: Protocol Last Admin: 02/23/17 10:14 Dose: 25 mg Levothyroxine Sodium (Synthroid) 50 mcg PO 0600 MARCELA PRN Reason: Protocol Last Admin: 02/23/17 06:20 Dose: 50 mcg Losartan Potassium (Cozaar) 100 mg PO DAILY MARCELA PRN Reason: Protocol Last Admin: 02/23/17 10:13 Dose: 100 mg Metoprolol Tartrate (Lopressor) 100 mg PO BRK MARCELA PRN Reason: Protocol Last Admin: 02/23/17 08:22 Dose: 100 mg Multivitamins/Minerals (Therapeutic-M Tab) 1 tab PO DAILY MARCELA PRN Reason: Protocol Last Admin: 02/23/17 10:17 Dose: 1 tab Non-Formulary Medication (Colesevelam Hcl [Welchol]) 3 tab PO 0800,1800 [facility] Last Admin: 02/23/17 08:20 Dose: 3 tab Nystatin (Nystop Topical Powder) 0 gm TOP TID MARCELA Last Admin: 02/23/17 10:16 Dose: 1 u Polyethylene Glycol (Miralax) 17 gm PO DAILY PRN PRN Reason: Constipation Silver Sulfadiazine (Silvadene 1% 20 Gm) 0 ea TOP DAILY MARCELA PRN Reason: Protocol Last Admin: 02/23/17 10:16 Dose: 1 applic Tramadol HCl (Ultram) 50 mg PO Q8 PRN; Protocol PRN Reason: Pain, moderate (4-7) Last Admin: 02/18/17 10:02 Dose: 50 mg Zinc Sulfate (Zinc Sulfate 220 Mg Cap) 220 mg PO DAILY MARCELA PRN Reason: Protocol Last Admin: 02/23/17 10:19 Dose: 220 mg - Labs Labs: 02/17/17 10:30 02/19/17 11:45 - Constitutional Appears: Well, Non-toxic, No Acute Distress - Extremities Exam Additional comments: Bilateral lower ext exam Vasc: DP& PT pulses are palpable bl, skin temp runs within normal limits,cap refil < 3 sec to all digits, 2+ pitting edema noted to ant. aspect of legs and dorsum of feet bl NEURO: pedal sensation is grossly diminished bl DERM there is a small epithelialized ulceration site noted to the right leg anterior lizama with no malodor, no drainage, slight lexie-wound erythema is noted. There is a healed ulceration noted to the left central lizama with no malodor, no drainage, no fluctuance, there is erythema noted to the distal 1/3 of bilateral legs however appears to be resolving. - Neurological Exam Neurological Exam: Alert, Awake, Oriented x3 - Psychiatric Exam Psychiatric exam: Normal Affect, Normal Mood Assessment and Plan - Assessment and Plan (Free Text) Assessment: 81 year old female with superficial ulceration to right leg and healed ulceration to left leg with bilateral lower extremity cellulitis (resolving) Plan: -Pt S&E at bedside with Dr. Melendrez present -Chart, labs, vitals reviewed: afrebile, WBC 13.0 on 02/17 -bilateral legs cleansed with wipes, dimethicone cream applied to both legs -New tubigrips stockings applied to bilateral legs, stockings to be removed at bedtime -Stable per podiatry for dischage. <Dom Melendrez - Last Filed: 02/26/17 11:57> Objective - Vital Signs/Intake and Output Vital Signs (last 24 hours): Temp Pulse Resp BP Pulse Ox 97.8 F 77 20 120/58 L 98 02/22/17 16:00 02/23/17 08:22 02/22/17 16:00 02/23/17 10:15 02/22/17 10:00 - Labs Labs: 02/17/17 10:30 02/19/17 11:45 Attending/Attestation - Attestation I have personally seen and examined this patient.: Yes I have fully participated in the care of the patient.: Yes I have reviewed all pertinent clinical information, including history, physical exam and plan: Yes
--- NOTE | 2017-02-23 12:09 | CP.PCM.PN ---
Subjective - Date & Time of Evaluation Date of Evaluation: 02/23/17 Time of Evaluation: 11:30 - Subjective Subjective: Comfortable, afebrile, not in distress. Objective - Vital Signs/Intake and Output Vital Signs (last 24 hours): Temp Pulse Resp BP Pulse Ox 97.8 F 77 20 120/58 L 98 02/22/17 16:00 02/23/17 08:22 02/22/17 16:00 02/23/17 10:15 02/22/17 10:00 - Medications Medications: Current Medications Alprazolam (Xanax) 0.5 mg PO HS MARCELA PRN Reason: Protocol Last Admin: 02/22/17 21:50 Dose: 0.5 mg Ascorbic Acid (Vitamin C 500 Mg Tab) 500 mg PO DAILY MARCELA PRN Reason: Protocol Last Admin: 02/23/17 10:17 Dose: 500 mg Aspirin (Ecotrin) 81 mg PO 0800 MARCELA PRN Reason: Protocol Last Admin: 02/23/17 08:21 Dose: 81 mg Betamethasone/Clotrimazole (Lotrisone) 0 ml TOP BID MARCELA PRN Reason: Protocol Last Admin: 02/23/17 10:15 Dose: 1 applic Cholecalciferol (Vitamin D) 2,000 iu PO DAILY MARCELA PRN Reason: Protocol Last Admin: 02/23/17 10:18 Dose: 2,000 iu Famotidine (Pepcid) 40 mg PO HS MARCELA PRN Reason: Protocol Last Admin: 02/22/17 21:41 Dose: 40 mg Furosemide (Lasix) 40 mg PO DAILY M[facility]ELA PRN Reason: Protocol Last Admin: 02/23/17 10:15 Dose: 40 mg Gabapentin (Neurontin) 300 mg PO TID MARCELA PRN Reason: Protocol Last Admin: 02/23/17 10:16 Dose: 300 mg Hydrochlorothiazide (Hydrodiuril) 25 mg PO DAILY [facility]A PRN Reason: Protocol Last Admin: 02/23/17 10:14 Dose: 25 mg Levothyroxine Sodium (Synthroid) 50 mcg PO 0600 M[facility]ELA PRN Reason: Protocol Last Admin: 02/23/17 06:20 Dose: 50 mcg Losartan Potassium (Cozaar) 100 mg PO DAILY [facility]A PRN Reason: Protocol Last Admin: 02/23/17 10:13 Dose: 100 mg Metoprolol Tartrate (Lopressor) 100 mg PO BRK MARCELA PRN Reason: Protocol Last Admin: 02/23/17 08:22 Dose: 100 mg Multivitamins/Minerals (Therapeutic-M Tab) 1 tab PO DAILY M[facility]ELA PRN Reason: Protocol Last Admin: 02/23/17 10:17 Dose: 1 tab Non-Formulary Medication (Colesevelam Hcl [Welchol]) 3 tab PO 0800,1800 [facility] Last Admin: 02/23/17 08:20 Dose: 3 tab Nystatin (Nystop Topical Powder) 0 gm TOP TID MARCELA Last Admin: 02/23/17 10:16 Dose: 1 u Polyethylene Glycol (Miralax) 17 gm PO DAILY PRN PRN Reason: Constipation Silver Sulfadiazine (Silvadene 1% 20 Gm) 0 ea TOP DAILY MARCELA PRN Reason: Protocol Last Admin: 02/23/17 10:16 Dose: 1 applic Tramadol HCl (Ultram) 50 mg PO Q8 PRN; Protocol PRN Reason: Pain, moderate (4-7) Last Admin: 02/18/17 10:02 Dose: 50 mg Zinc Sulfate (Zinc Sulfate 220 Mg Cap) 220 mg PO DAILY MARCELA PRN Reason: Protocol Last Admin: 02/23/17 10:19 Dose: 220 mg - Labs Labs: 02/17/17 10:30 02/19/17 11:45 - Constitutional Appears: Non-toxic, No Acute Distress - Head Exam Head Exam: NORMAL INSPECTION - ENT Exam ENT Exam: Mucous Membranes Moist - Neck Exam Neck Exam: absent: Lymphadenopathy, Meningismus - Respiratory Exam Respiratory Exam: Decreased Breath Sounds - Cardiovascular Exam Cardiovascular Exam: +S1, +S2 - GI/Abdominal Exam GI & Abdominal Exam: Soft. absent: Tenderness Assessment and Plan - Assessment and Plan (Free Text) Plan: Assessment Left leg cellulitis, growing Pseudomonas, Enterobacter, coagulase negative staph , clinically improved and S/P treatment HTN obesity hypothyroidism history of cellulitis of the lower extremities anxiety disorder Plan completed 10 days of Vancomycin and Zosyn; while the patient is in the hospital , will monitor off antibiotics
--- NOTE | 2017-03-05 08:32 | DS ---
CHIEF COMPLAINT: Swelling of the legs, fatigue and tired. HISTORY OF PRESENT ILLNESS: The patient is an 81-year-old female with a past medical history of multiple medical problems was admitted in [facility]. Actually, patient was getting outpatient treatment with Dr. Spear and failed outpatient treatment, and then sent patient to [facility] for IV antibiotics. The patient got IV antibiotic. ID consult called. The patient __ __ the antibiotics then transferred patient to TCU for the of antibiotics. PAST MEDICAL HISTORY: Hypertension, tachycardia, obesity, hypothyroidism, cellulitis of the lower extremities, history of stasis dermatitis, anxiety. FAMILY HISTORY: Father and mother noncontributory. ALLERGIES: The patient is not allergic with any medications. HOME MEDICATIONS: Reviewed by me. REVIEW OF SYSTEMS: The patient seen and examined on the bedside. Looks comfortable. Completed IV antibiotics. Feeling better. Happy to go home. No nausea, vomiting, or diarrhea. No hematuria or hematochezia. No headache, no dizziness. No fever, no chills. PHYSICAL EXAMINATION: VITAL SIGNS: Temperature 97.8, pulse 77, blood pressure 120/58, respiratory rate 20. HEAD: Normocephalic, atraumatic. Eyes: PERRLA. Extraocular muscles intact. Conjunctivae are clear. Nose patent. Mucous membranes moist. NECK: Supple. No carotid bruit, JVD or thyromegaly. CHEST: Bilaterally symmetrical. HEART: S1, S2 positive. LUNGS: Clear to auscultation. ABDOMEN: Soft. Bowel sounds positive. No organomegaly. EXTREMITIES: No edema. Trace redness but getting better. NEUROLOGIC: The patient is awake, alert, follows simple commands. LABORATORY DATA: White blood cell is 13.0, hemoglobin 11.7, hematocrit 36.5, and platelets 398. Sodium 136, potassium 4.2, BUN 21, creatinine 1.0, glucose 96, calcium 9.4. ASSESSMENT AND PLAN: The patient is an 81-year-old lady with leukocytosis, anemia, has cellulitis of the legs, growing pseudomonas, enterococcus, coagulase-negative staphylococcus, clinically improved, status post treatment; hypertension, obesity, hypothyroidism, history of cellulitis of lower extremity , anxiety disorder. Completed 10 days of vancomycin and Zosyn. Antibiotics were discontinued by infectious disease. The patient got physical therapy, got better. Discharged home. Will follow up with primary care physician. Will follow up. June Biggs MD cc: [id number] TT: 03/04/2017 07:41:17 mn MARICHUY
== END 2017-02-23 14:00 | disposition home or self-care (01) | DRG 603 ==
LOC: TRCU 15:08
PROVIDERS: ADMIT Internal Medicine; ATTEND Internal Medicine
PROC: F07Z9FZ Gait Training/Functional Ambulation Treatment using Assistive, Adaptive, Supportive or Protective Equipment (ICD-10-PCS; principal; 2017-02-16)
PROC: F07Z8ZZ Transfer Training Treatment (ICD-10-PCS; 2017-02-16)
PROC: F07L6YZ Therapeutic Exercise Treatment of Musculoskeletal System - Lower Back / Lower Extremity using Other Equipment (ICD-10-PCS; 2017-02-16)
PROC: F08Z2ZZ Grooming/Personal Hygiene Treatment (ICD-10-PCS; 2017-02-17)
PROC: 0HBRXZZ Excision of Toe Nail, External Approach (ICD-10-PCS; 2017-02-19)
PROC: 0HBRXZZ Excision of Toe Nail, External Approach (ICD-10-PCS; 2017-02-19)
PROC: 0HBRXZZ Excision of Toe Nail, External Approach (ICD-10-PCS; 2017-02-19)
PROC: 0HBRXZZ Excision of Toe Nail, External Approach (ICD-10-PCS; 2017-02-19)
PROC: 0HBRXZZ Excision of Toe Nail, External Approach (ICD-10-PCS; 2017-02-19)
PROC: 0HBRXZZ Excision of Toe Nail, External Approach (ICD-10-PCS; 2017-02-19)
PROC: 0HBRXZZ Excision of Toe Nail, External Approach (ICD-10-PCS; 2017-02-19)
PROC: 0HBRXZZ Excision of Toe Nail, External Approach (ICD-10-PCS; 2017-02-19)
PROC: 0HBRXZZ Excision of Toe Nail, External Approach (ICD-10-PCS; 2017-02-19)
PROC: 0HBRXZZ Excision of Toe Nail, External Approach (ICD-10-PCS; 2017-02-19)
DX: L03.115 Cellulitis of right lower limb (principal); L97.919 Non-pressure chronic ulcer of unspecified part of right lower leg with unspecified severity; L97.929 Non-pressure chronic ulcer of unspecified part of left lower leg with unspecified severity; L03.116 Cellulitis of left lower limb; D64.9 Anemia, unspecified; B96.5 Pseudomonas (aeruginosa) (mallei) (pseudomallei) as the cause of diseases classified elsewhere; B95.2 Enterococcus as the cause of diseases classified elsewhere; I10 Essential (primary) hypertension; B35.8 Other dermatophytoses; F41.9 Anxiety disorder, unspecified; E66.9 Obesity, unspecified; E03.9 Hypothyroidism, unspecified; E78.1 Pure hyperglyceridemia; R73.9 Hyperglycemia, unspecified; K59.00 Constipation, unspecified; G47.00 Insomnia, unspecified; L60.3 Nail dystrophy; Z68.33 Body mass index [BMI] 33.0-33.9, adult

== ENCOUNTER 2018-08-09 16:34 | Emergency (ER) | payer MEDICARE, MEDICAID ==
[2018-08-09 16:34] VITALS: BMI 33.6
[2018-08-09 17:13] VITALS: RESP 18; TEMP 98.7
[2018-08-09] MEDS ORDERED: TDAP Vaccine 0.5 mL Syr IM ONE (17:22)
--- NOTE | 2018-08-09 17:22 | ED PDOC ---
Arrival/HPI - General Time Seen by Provider: 08/09/18 17:10 Historian: Patient - History of Present Illness Narrative History of Present Illness (Text): 08/09/18 17:11 82 y/o female, pmh including htn/hld/hypothyroidism/chronic pedal edema for years which she is on lasix, nkda, c/o rt. leg laceration x 1 hour with last tetanus over 10 years ago. Pt. stated that she accidentally tear the skin and sustained laceration when her granddaughter fall and causing skin, no difficulty walking or standing, no pain, no numbness or tingling, no palpitation, no dizziness, no chest pain or shortness of breath, no other medical or psychological complaints. Past Medical History - Provider Review Nursing Documentation Reviewed: Yes - Cardiac Hx Hypertension: Yes - Pulmonary Hx Respiratory Disorders: No - Neurological Hx Neurological Disorder: No - HEENT Hx HEENT Disorder: No - Renal Hx Renal Disorder: No - Endocrine/Metabolic Hx Endocrine Disorders: Yes Other/Comment: THYROID DISEASE - Hematological/Oncological Hx Blood Disorders: No - Integumentary Hx Cellulitis: Yes - Musculoskeletal/Rheumatological Hx Musculoskeletal Disorders: No Hx Falls: Yes - Gastrointestinal Hx Gastrointestinal Disorders: No - Genitourinary/Gynecological Hx Genitourinary Disorders: No Hx Reproductive Disorders: No - Psychiatric Hx Psychophysiologic Disorder: Yes Hx Anxiety: Yes Hx Substance Use: No - Surgical History Other/Comment: BX OF L FOOT Family/Social History - Physician Review Nursing Documentation Reviewed: Yes Family/Social History: Unknown Family HX Smoking Status: Never Smoked Hx Alcohol Use: No Hx Substance Use: No Allergies/Home Meds Allergies/Adverse Reactions: Allergies No Known Allergies Allergy (Verified 08/09/18 17:14) Home Medications: Home Meds Medication Instructions Recorded Confirmed ALPRAZolam [Xanax] 1 tab PO DAILY 02/08/17 02/21/17 Aspirin [Ecotrin] 81 mg PO DAILY 02/08/17 02/21/17 Cholecalciferol (Vitamin D3) 1 tab PO DAILY 02/08/17 02/21/17 [Vitamin D3] Furosemide [Lasix] 40 mg PO DAILY 02/08/17 02/21/17 Gabapentin [Neurontin] 300 mg PO TID 02/08/17 02/21/17 Levothyroxine [Synthroid] 50 mcg PO DAILY 02/08/17 02/21/17 Metoprolol Tartrate [Lopressor] 100 mg PO DAILY 02/08/17 02/21/17 Mupirocin [Centany] 1 apful TOP BID 02/08/17 02/21/17 Valsartan/Hydrochlorothiazide 1 tab PO DAILY 02/08/17 02/21/17 [Valsartan-Hctz 160-25 mg Tab] Review of Systems - Review of Systems Constitutional: absent: Fatigue, Fevers Eyes: absent: Vision Changes ENT: absent: Hearing Changes Respiratory: absent: SOB, Cough Cardiovascular: absent: Chest Pain Gastrointestinal: absent: Abdominal Pain, Nausea, Vomiting Musculoskeletal: absent: Arthralgias, Back Pain Skin: Laceration. absent: Rash, Pruritis, Skin Lesions Neurological: absent: Headache, Dizziness Psychiatric: absent: Anxiety, Depression, Suicidal Ideation Physical Exam Vital Signs Reviewed: Yes Temperature: Afebrile Blood Pressure: Hypertensive Pulse: Regular Respiratory Rate: Normal Appearance: Positive for: Well-Appearing, Non-Toxic, Comfortable Pain Distress: None Mental Status: Positive for: Alert and Oriented X 3 - Systems Exam Head: Present: Atraumatic, Normocephalic Pupils: Present: PERRL Extroacular Muscles: Present: EOMI Conjunctiva: Present: Normal Mouth: Present: Moist Mucous Membranes Neck: Present: Normal Range of Motion Respiratory/Chest: Present: Clear to Auscultation, Good Air Exchange. No: Respiratory Distress, Accessory Muscle Use Cardiovascular: Present: Regular Rate and Rhythm, Normal S1, S2. No: Murmurs Abdomen: No: Tenderness, Distention, Peritoneal Signs Back: Present: Normal Inspection Upper Extremity: Present: Normal Inspection. No: Cyanosis, Edema Lower Extremity: Present: Normal Inspection, Other (RLE: visible medial aspect of the distal tibial region noted to have c-shaped 5cm skin splitting with superficial to intermediate depth laceration, no oozing/discharge, FROM without limitation, sensation intact, no cellulitis or ulcers, no other medical or psychological complaints. ). No: Edema Neurological: Present: GCS=15, CN II-XII Intact, Speech Normal Skin: Present: Warm, Dry, Normal Color. No: Rashes Psychiatric: Present: Alert, Oriented x 3, Normal Insight, Normal Concentration Medical Decision Making ED Course and Treatment: 08/09/18 17:25 -Pt. refused imaging and other invervention, only request suturing. -Tetanus/keflex and will suture 08/09/18 17:26 PROCEDURE: LACERATION REPAIR Performed by the emergency provider Location: rt. lower leg tibial Length: 5 cm Description: {"clean wound edges","no foreign bodies"} Distal CMS: Normal. No deficits. Neurovascularly intact. Anesthesia: Lidocaine 1% 1cc local anesthetic Preparation: The wound was cleaned with NS 1000cc and clean with Betadyne. The area was prepped and draped in the usual sterile fashion. Exploration: The wound was explored and no foreign bodies were found. Procedure: The wound was closed with 4-0 nylon. There was {good / appropriate / adequate / loose} approximation. In total, 15 sutures were used. Post-Procedure: Good closure and hemostasis. The patient tolerated the procedure well and there were no complications. CSM remains intact. Post procedure dressing applied. Kevin wrap applied as she has chronic pedal edema which this may and can causes suture rupture due to the pressure but she is on the lasix combo antihypertensive. 08/09/18 18:01 -Still elevated BP and asymptomatic, no cardiopulmonary complaints, clonidine 0.2mg po ordered with bp 200/100s 08/09/18 19:28 -BP is better, advised outpatient follow up. -Pt. advised to follow up with DR. Ann for antihypertensive medication re- evaluation and blood pressure follow up. -Discharge home with keflex, tylenol, keep the dressing dry and clean with kevin wrap on, cane, elevation, return to the ER for wound check if you can't be seen by your own pmd or general surgeon, sutures need to be removed by day 10, return to the ER for any new or worsening signs or symptoms. - PA / HOT PRESS OPERATOR / Resident Statement MD/DO has reviewed & agrees with the documentation as recorded. Disposition/Present on Arrival - Present on Arrival Any Indicators Present on Arrival: No History of DVT/PE: No History of Uncontrolled Diabetes: No Urinary Catheter: No History of Decub. Ulcer: No History Surgical Site Infection Following: None - Disposition Have Diagnosis and Disposition been Completed?: Yes Diagnosis: HTN (hypertension), Leg laceration Disposition: HOME/ ROUTINE Disposition Time: 18:07 Patient Plan: Discharge Patient Problems: Current Active Problems Problem Status Onset HTN (hypertension) Acute Leg laceration Acute Condition: IMPROVED Additional Instructions: -Discharge home with keflex, tylenol, keep the dressing dry and clean with kevin wrap on, cane, elevation, return to the ER for wound check if you can't be seen by your own pmd or general surgeon, sutures need to be removed by day 10, return to the ER for any new or worsening signs or symptoms. Prescriptions: Acetaminophen [Tylenol] 2 cap PO TID PRN #45 capsule PRN Reason: Other Cephalexin [cephalexin] 500 mg PO TID #30 cap Referrals: Jesus Ann DO [Primary Care Provider] - Follow up with primary Marialuisa Garza MD [Staff Provider] - Follow up with primary Forms: WORK NOTE
[2018-08-09 19:22] VITALS: BP 146/76; PULSE 79; O2SAT 98
== END 2018-08-09 19:30 | disposition home or self-care (01) ==
LOC: ED 16:34
DX: S81.811A Laceration without foreign body, right lower leg, initial encounter (principal); W19.XXXA Unspecified fall, initial encounter; E78.5 Hyperlipidemia, unspecified; I10 Essential (primary) hypertension; E03.9 Hypothyroidism, unspecified; Z23 Encounter for immunization

== ENCOUNTER 2018-08-11 12:10 | Inpatient (IN) | payer MEDICARE, MEDICAID ==
[2018-08-11 12:11] VITALS: BMI 33.6
--- NOTE | 2018-08-11 15:25 | CP.PCM.CON ---
<Ankush Carroll - Last Filed: 08/11/18 15:20> History of Present Illness - History of Present Illness History of Present Illness: Podiatry consult note for Dr. Spear 82 yo female with pmhx of htn, hld, hypothyroidism, and chronic pedal edema presents to the ED for right leg wound. States that two days ago on Saturday she had fallen over her granddaughter and open up her leg and was bleeding. She came to the ED and her laceration was sutured. Her integration software developer is present today bedside and states that her leg started to look darker and more red and was warm so she brought her in to the ED today. She denies N/V/F/C/SOB/CP today and has no other acute complaints. States her legs are usually wrapped as she has a home nurse who changes her dressings. She was seen in the wound care clinic and is known to Dr. Spear for a left medial ankle chronic ulceration. PMHx: htn, hld, hypothyroidism, chronic pedal edema PSHx: biopsy of left foot All: NKDA Past Patient History - Infectious Disease Hx of Infectious Diseases: None - Past Social History Smoking Status: Never Smoked - CARDIAC Hx Hypertension: Yes - PULMONARY Hx Respiratory Disorders: No - NEUROLOGICAL Hx Neurological Disorder: No - HEENT Hx HEENT Problems: No - RENAL Hx Chronic Kidney Disease: No - ENDOCRINE/METABOLIC Hx Endocrine Disorders: Yes Other/Comment: THYROID DISEASE - HEMATOLOGICAL/ONCOLOGICAL Hx Blood Disorders: No - INTEGUMENTARY Hx Cellulitis: Yes - MUSCULOSKELETAL/RHEUMATOLOGICAL Hx Musculoskeletal Disorders: No Hx Falls: Yes - GASTROINTESTINAL Hx Gastrointestinal Disorders: No - GENITOURINARY/GYNECOLOGICAL Hx Genitourinary Disorders: No Hx Reproductive Disorders: No - PSYCHIATRIC Hx Psychophysiologic Disorder: Yes Hx Anxiety: Yes Hx Substance Use: No - SURGICAL HISTORY Other/Comment: BX OF L FOOT - ANESTHESIA Hx Anesthesia: No Meds Allergies/Adverse Reactions: Allergies Allergy/AdvReac Type Severity Reaction Status Date / Time No Known Allergies Allergy Verified 08/09/18 17:14 Physical Exam - Constitutional Appears: Well, Non-toxic, No Acute Distress - Head Exam Head Exam: ATRAUMATIC, NORMOCEPHALIC - Extremities Exam Additional comments: Vasc: DP and PT pulses palpable b/l, skin temp warm to warm from distal to proximal on the right and wnl on the left; cap refill <3 seconds to all digits; mild edema noted b/l R>L Derm: right: there is a superficial laceration with intact sutures on the right lower leg adjacent to the calf; there is evidence of hematoma formation immediately distal to the laceration site that is mildly fluctuant, no signs of pus or purulent drainage; there is cellulitis present about the left lower leg, from the knee distally to the ankle joint; there is evidence of soft tissue infection present left: there is evidence of a chronic wound that is stable and healed at the medial left ankle proximal to the malleolus, no other lesions present, evidence of mild weeping from leg NEURO: pedal sensation is grossly diminished b/l Ortho: no pain on palpation to the laceration site or anywhere about the lower legs; no other gross pathology noted - Neurological Exam Neurological exam: Alert, Oriented x3 - Psychiatric Exam Psychiatric exam: Normal Affect, Normal Mood Results - Vital Signs Recent Vital Signs: Last Vital Signs Temp 98.2 F 08/11/18 14:06 Pulse 72 08/11/18 14:06 Resp 18 08/11/18 14:06 BP 152/77 H 08/11/18 14:06 Pulse Ox 99 08/11/18 14:06 Assessment & Plan - Assessment and Plan (Free Text) Assessment: 82 yo patient with pmhx of htn, hld, hypothyroidism and chronic pedal edema with right leg cellulitis and hematoma formation s/p superficial laceration Plan: Patient seen and evaluated with Dr. Spear Charts and labs reviewed: VSS, afebrile, await CBC and BMP reading 2 stitches removed with sterile suture removal kit and wound culture taken - f/u Laceration site dressed with xeroform, DSD, and PERRY Patient states she is currently on keflex, given prescription when left ED on Saturday Patient expressed desire to leave and go home, instructed best interest to stay and be treated in house with IV abx as skin infection present Patient demonstrated understanding and stated she will stay Nursing order to apply warm compress BID to laceration and cellulitic area of right leg Podiatry will follow while in house Thank you for the consult - Date & Time Date: 08/11/18 Time: 15:36 <Estelita Spear - Last Filed: 08/14/18 11:38> Meds - Medications Medications: Current Medications Alprazolam (Xanax) 1 mg PO DAILY [facility]; Protocol Stop: 08/19/18 10:01 Last Admin: 08/14/18 10:46 Dose: 1 mg Amino Acid Protein (Prostat 15 G Packet) 15 gm GT BID [facility] Amlodipine Besylate (Norvasc) 2.5 mg PO DAILY [facility] Last Admin: 08/14/18 10:47 Dose: 2.5 mg Aspirin (Ecotrin) 81 mg PO DAILY [facility] Last Admin: 08/14/18 10:46 Dose: 81 mg Furosemide (Lasix) 20 mg IVP DAILY [facility] Last Admin: 08/14/18 10:46 Dose: 20 mg Gabapentin (Neurontin) 300 mg PO TID [facility]; Protocol Last Admin: 08/14/18 10:47 Dose: 300 mg Cefepime HCl (Maxipime 1gm) 1 gm in 100 mls @ 100 mls/hr IVPB Q8 [facility]; Protocol Last Admin: 08/14/18 06:05 Dose: 100 mls/hr Vancomycin HCl (Vancomycin 1gm) 1 gm in 250 mls @ 167 mls/hr IVPB Q12H [facility]; Protocol Levothyroxine Sodium (Synthroid) 50 mcg PO DAILY [facility] Last Admin: 08/14/18 10:46 Dose: 50 mcg Losartan Potassium (Cozaar) 100 mg PO DAILY [facility] Last Admin: 08/14/18 10:47 Dose: 100 mg Metoprolol Tartrate (Lopressor) 100 mg PO DAILY [facility] Last Admin: 08/14/18 10:46 Dose: 100 mg Polyethylene Glycol (Miralax) 17 gm PO DAILY [facility] Last Admin: 08/14/18 10:45 Dose: 17 gm Results - Vital Signs Recent Vital Signs: Last Vital Signs Temp 98.2 F 08/14/18 06:00 Pulse 71 08/14/18 10:46 Resp 18 08/14/18 06:00 BP 151/70 H 08/14/18 10:47 Pulse Ox 96 08/14/18 06:00 - Labs Result Diagrams: 08/14/18 07:00 08/14/18 07:00 Labs: Laboratory Results - last 24 hr 08/14/18 08/14/18 07:00 07:00 WBC 10.4 RBC 4.08 Hgb 11.8 L Hct 37.2 MCV 91.2 MCH 28.9 MCHC 31.7 RDW 13.8 Plt Count 294 MPV 8.2 Sodium 139 Potassium 3.8 Chloride 102 Carbon Dioxide 32 Anion Gap 8 L BUN 26 H Creatinine 0.8 Est GFR ( Amer) > 60 Est GFR (Non-Af Amer) > 60 Random Glucose 101 Calcium 9.0 Total Bilirubin 0.3 AST 29 ALT 27 Alkaline Phosphatase 71 Total Protein 6.4 Albumin 3.3 Globulin 3.1 Albumin/Globulin Ratio 1.1 Attending/Attestation - Attestation I have personally seen and examined this patient.: Yes I have fully participated in the care of the patient.: Yes I have reviewed all pertinent clinical information: Yes
--- NOTE | 2018-08-11 16:35 | ED PDOC ---
Arrival/HPI - General Chief Complaint: Abnormal Skin Integrity Time Seen by Provider: 08/11/18 13:22 Historian: Patient - History of Present Illness Narrative History of Present Illness (Text): 08/11/18 16:54 82 year old female whose past medical history includes htn/hld/hypothyroidism/chronic pedal edema for years which she is on lasix, presents to the Emergency department for evaluation of wound check of a laceration repair on the medial aspect of the right lower leg performed in this ER a few days ago. 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 She sees Dr. Spear for podiatry, patient notes she hasn't seen her in the past 5 months. Patient denied any bleeding from the lacerated area, fever, chills, or any other complaint. PMD: Dr. Ann Pod: Dr. Spear Past Medical History - Provider Review Nursing Documentation Reviewed: Yes - Infectious Disease Hx of Infectious Diseases: None - Reproductive Menopause: Yes - Cardiac Hx Hypertension: Yes - Pulmonary Hx Respiratory Disorders: No - Neurological Hx Neurological Disorder: No - HEENT Hx HEENT Disorder: No - Renal Hx Renal Disorder: No - Endocrine/Metabolic Hx Endocrine Disorders: Yes Other/Comment: THYROID DISEASE - Hematological/Oncological Hx Blood Disorders: No - Integumentary Hx Cellulitis: Yes - Musculoskeletal/Rheumatological Hx Musculoskeletal Disorders: No Hx Falls: Yes - Gastrointestinal Hx Gastrointestinal Disorders: No - Genitourinary/Gynecological Hx Genitourinary Disorders: No Hx Reproductive Disorders: No - Psychiatric Hx Psychophysiologic Disorder: Yes Hx Anxiety: Yes Hx Substance Use: No - Surgical History Other/Comment: BX OF L FOOT - Anesthesia Hx Anesthesia: No Family/Social History - Physician Review Nursing Documentation Reviewed: Yes Family/Social History: Unknown Family HX Smoking Status: Never Smoked Hx Alcohol Use: No Hx Substance Use: No Allergies/Home Meds Allergies/Adverse Reactions: Allergies No Known Allergies Allergy (Verified 08/09/18 17:14) Home Medications: Home Meds Medication Instructions Recorded Confirmed ALPRAZolam [Xanax] 1 tab PO DAILY 02/08/17 02/21/17 Aspirin [Ecotrin] 81 mg PO DAILY 02/08/17 02/21/17 Cholecalciferol (Vitamin D3) 1 tab PO DAILY 02/08/17 02/21/17 [Vitamin D3] Furosemide [Lasix] 40 mg PO DAILY 02/08/17 02/21/17 Gabapentin [Neurontin] 300 mg PO TID 02/08/17 02/21/17 Levothyroxine [Synthroid] 50 mcg PO DAILY 02/08/17 02/21/17 Metoprolol Tartrate [Lopressor] 100 mg PO DAILY 02/08/17 02/21/17 Mupirocin [Centany] 1 apful TOP BID 02/08/17 02/21/17 Valsartan/Hydrochlorothiazide 1 tab PO DAILY 02/08/17 02/21/17 [Valsartan-Hctz 160-25 mg Tab] Review of Systems - Physician Review All systems were reviewed & negative as marked: Yes - Review of Systems Constitutional: Normal. absent: Fevers Eyes: Normal ENT: Normal Respiratory: Normal. absent: SOB, Cough Cardiovascular: Normal. absent: Chest Pain Gastrointestinal: Normal. absent: Abdominal Pain, Diarrhea, Nausea, Vomiting Genitourinary Female: Normal Musculoskeletal: Normal. absent: Back Pain (right leg), Neck Pain Skin: Laceration Neurological: Normal Endocrine: Normal Hemo/Lymphatic: Normal Psychiatric: Normal Physical Exam Vital Signs Reviewed: Yes Vital Signs Temp Pulse Resp BP Pulse Ox 08/11/18 14:06 98.2 F 72 18 152/77 H 99 08/11/18 12:51 98.7 F 73 18 167/100 H 99 Temperature: Afebrile Blood Pressure: Hypertensive Pulse: Regular Respiratory Rate: Normal Appearance: Positive for: Well-Appearing, Comfortable Pain Distress: None Mental Status: Positive for: Alert and Oriented X 3 - Systems Exam Head: Present: Atraumatic, Normocephalic Pupils: Present: PERRL Extroacular Muscles: Present: EOMI Conjunctiva: Present: Normal Mouth: Present: Moist Mucous Membranes Neck: Present: Normal Range of Motion Respiratory/Chest: Present: Clear to Auscultation, Good Air Exchange. No: Respiratory Distress, Accessory Muscle Use Cardiovascular: Present: Regular Rate and Rhythm, Normal S1, S2. No: Murmurs Abdomen: No: Tenderness, Distention, Peritoneal Signs Back: Present: Normal Inspection Upper Extremity: Present: Normal Inspection. No: Cyanosis, Edema Lower Extremity: Present: NORMAL PULSES, Normal ROM, Erythema (distal circumferential erythema, +warm to touch, at the right lower led above the right ankle), Neurovascularly Intact, Capillary Refill < 2 s, Other (+2cm triangular superficial ulcer to the medical left ankle with minimal erythema, not warm to touch, no discharge, and no swelling) Neurological: Present: GCS=15, CN II-XII Intact, Speech Normal Skin: Present: Warm, Dry, Normal Color, Laceration (5cm laceration on the medial aspect of the right lower leg with surrounding ecchymosis). No: Rashes Psychiatric: Present: Alert, Oriented x 3, Normal Insight, Normal Concentration Medical Decision Making ED Course and Treatment: 08/11/18 16:54 Impression: 82 year old female who presents to the Emergency department for wound check, laceration repair on the medial aspect on the right leg. Differential Diagnosis included but are not limited to: Plan: -- Reassess and disposition Prior Visits: Notes and results from previous visits were reviewed. Patient was last seen in the emergency department on 08/09/2018. Progress Notes: Patient advised there is evidence of infection to the right lower leg. Told to stay for observation and for antibiotic treatment. Patient is refusing, she is already on Keflex and is confident that will be enough to treat the infection, she doesn't want IV fluids or antibiotics. 08/11/18 17:[address] Ann, he knows that patient well, knows she will refuse treatment. Advised to tell the patient to follow up with his office and agrees with adding bactrum treatment and topical bactracin. Spoke to Podiatry resident Dr. Carroll who works with Dr. Spear and will evaluate patient. Patient seen and evaluated by pod resident and Dr. Spear who spoke to the patient and now she is amendable to staying for at least observation for cellulitis to the R leg. Labs, zosyn IV and vancomycin IV ordered. - PA / HEATING FIXTURE TENDER / Resident Statement MD/DO has reviewed & agrees with the documentation as recorded. - Scribe Statement The provider has reviewed the documentation as recorded by the Scribe Sheron Luo training with Dmitri Mathews Provider Scribe Attestation: All medical record entries made by the Scribmelquiades were at my direction and personally dictated by me. I have reviewed the chart and agree that the record accurately reflects my personal performance of the history, physical exam, medical decision making, and the department course for this patient. I have also personally directed, reviewed, and agree with the discharge instructions and d isposition. Disposition/Present on Arrival - Present on Arrival Any Indicators Present on Arrival: No History of DVT/PE: No History of Uncontrolled Diabetes: No Urinary Catheter: No History of Decub. Ulcer: No History Surgical Site Infection Following: None - Disposition Have Diagnosis and Disposition been Completed?: Yes Diagnosis: Cellulitis, Ulcer of left ankle, Laceration of leg, right Disposition: HOSPITALIZED Disposition Time: 17:26 Patient Plan: Observation Patient Problems: Current Active Problems Problem Status Onset Cellulitis Acute Condition: STABLE
[2018-08-11] MEDS ORDERED: Piperacill/Tazo 4.5gm in NS 4.5 GM/100 ML BAG IVPB STA (16:53)
[2018-08-11] MEDS ORDERED: Vancomycin 1gm in NS 250ml 1 GM/250 ML BAG IVPB STA (16:53)
[2018-08-11 17:42] LABS: BASO # 0.03 K/mm3 (0.0-2.0); BASO % 0.2 % (0.0-3.0); EOS # 0.1 (0.0-0.7); EOS % 0.9 % (1.5-5.0); GRAN # 9.42 (1.4-6.5); GRAN % 76.5 % (50.0-68.0); HEMOGLOBIN 13.1 g/dL (12.0-16.0); LYMPH # 2.2 (1.2-3.4); MEAN CELL VOLUME 90.2 fl (80.0-105.0); MEAN CORPUSCULAR HEMOGLOBIN 29.9 pg (25.0-35.0); MEAN CORPUSCULAR HGB CONC 33.2 g/dl (31.0-37.0); MEAN PLATELET VOLUME 8.4 fl (7.0-11.0); MONO # 0.5 (0.1-0.6); MONO % 4.4 % (1.0-6.0); RBC 4.38 10^6/uL (3.5-6.1); RED CELL DISTRIBUTION WIDTH 13.7 % (11.5-14.5); WHITE BLOOD COUNT 12.3 10^3/uL (4.5-11.0)
[2018-08-11 17:45] LABS: VENOUS BLOOD GAS BASE EXCESS 6.1 mmol/L (0.0-2.0); VENOUS BLOOD GAS PO2 49 mm/Hg (30-55); VENOUS BLOOD PH 7.34 (7.32-7.43)
[2018-08-11 17:52] LABS: INR 0.93; PROTHROMBIN TIME 10.6 SECONDS (9.4-12.5)
[2018-08-11 17:53] LABS: ALB/GLOB RATIO 1.1 (1.1-1.8); ALBUMIN 4.1 g/dL (3.0-4.8); ALT/SGPT 25 U/L (7-56); AST/SGOT 36 U/L (14-36); BLOOD UREA NITROGEN 27 mg/dL (7-21); CALCIUM 9.9 mg/dL (8.4-10.5); GFR NON-AFRICAN AMERICAN 60
[2018-08-11] MEDS ORDERED: Potassium Chloride 20 mEq ER Tab PO STA (18:00)
[2018-08-11] MEDS: Piperacillin/Tazobact 3.375 gm 100 ML IVPB SCH (23:40)
--- NOTE | 2018-08-12 03:23 | HP ---
HISTORY OF PRESENT ILLNESS: I was called down to the ER to see her. She is an 82-year-old female that I do house calls on for a very long time now. She was sent into the emergency room after being seen by the securities consultant. She has very bad cellulitis, laceration of the lower extremity with redness. She is an 82-year-old white female with a history of hypertension, high cholesterol, hypothyroidism, chronic pedal edema for years. She is on Lasix, hydrochlorothiazide. Has evaluation of a laceration repair of the medial aspect of the right leg, and Dr. Spear felt she was in need of IV antibiotics. I have put her on Keflex on the outpatient and she failed outpatient therapy. She has hypertension, thyroid disease, cellulitis, falls, anxiety. She had biopsy of the left foot. FAMILY HISTORY: Hypertension in the family. SOCIAL HISTORY: Nonsmoker. Nondrinker. No drugs. ALLERGIES: NO KNOWN DRUG ALLERGIES. MEDICATIONS: She is on Xanax, Ecotrin, vitamin D, Lasix, Neurontin, Synthroid, Lopressor, Bactroban cream, hydrochlorothiazide, and losartan which was switched to Cozaar. REVIEW OF SYSTEMS No acute vision or hearing changes. No sore throat. No neck pain. No shortness of breath or cough. No chest pain or palpitations. No abdominal pain, nausea, vomiting, constipation, or diarrhea. She urinates okay. No back pain. There is a laceration in the leg. Little anxious, worried about staying overnight in the hospital. PHYSICAL EXAMINATION: VITAL SIGNS: She has a 98.7 temp, 73 pulse, 18 respiratory rate, 167/100 blood pressure, 99% O2 sat on room air. GENERAL: She is little anxious, well appearing, little uncomfortable, alert and oriented x3. HEENT: Head is atraumatic, normocephalic. Extraocular muscles are intact. Pupils equal and reactive to light. Throat is moist. NECK: Supple. HEART: Regular rate. Normal S1, S2. LUNGS: Decreased breath sounds, but clear to auscultation. ABDOMEN: Soft, nontender. Positive bowel sounds. No guarding, no rebound, no CVA tenderness. EXTREMITIES: Have +2/4 pitting edema bilaterally with erythema and redness, especially in the right ankle. A 2-cm triangle superficial ulcer. A 5-cm laceration in the medial aspect of the right lower leg; it is red, inflamed, and swollen;+2/4 pitting edema. NEUROLOGIC: GCS is 15. Cranial nerves II-XII grossly intact. Normal speech. Alert and oriented x3. LABORATORY DATA: She had multiple tests done. She has an elevated white count 12.3, hemoglobin 13.1, hematocrit 39.5, and platelets are INR is 0.93. She has 140 sodium; potassium 3.4, we will replace the potassium; BUN 27; creatinine 0.9. GFR greater than 60. Sugar is 105. Calcium is 9.9, phosphorus 3.7, magnesium 2.3, total bili is 0.3. AST is 36, ALT is 25, alk phos 108, total protein 7.6, albumin is 4.1. Chest x-ray is pending. She is sent in by Dr. Spear for failed outpatient treatment of leg cellulitis and laceration. She will have consult with Infectious Disease and Podiatry. She will be on IV Zosyn for the time being, Lasix IV, regular medications, physical therapy, diet. We will watch her very closely. Jesus Ann DO MTDD
[2018-08-12 07:27] LABS: HEMOGLOBIN 11.8 g/dL (12.0-16.0); MEAN CELL VOLUME 90.6 fl (80.0-105.0); MEAN CORPUSCULAR HEMOGLOBIN 29.1 pg (25.0-35.0); MEAN CORPUSCULAR HGB CONC 32.1 g/dl (31.0-37.0); MEAN PLATELET VOLUME 8.1 fl (7.0-11.0); RBC 4.06 10^6/uL (3.5-6.1); RED CELL DISTRIBUTION WIDTH 13.9 % (11.5-14.5); WHITE BLOOD COUNT 11.2 10^3/uL (4.5-11.0)
[2018-08-12 07:47] LABS: ALBUMIN 3.3 g/dL (3.0-4.8); ALT/SGPT 23 U/L (7-56); AST/SGOT 31 U/L (14-36); BLOOD UREA NITROGEN 22 mg/dL (7-21); CALCIUM 9.1 mg/dL (8.4-10.5); GFR NON-AFRICAN AMERICAN 60
[2018-08-12] MEDS: Piperacillin/Tazobact 3.375 gm 100 ML IVPB SCH ×3 (07:58→21:34)
[2018-08-12] MEDS: Vancomycin 1gm in NS 250ml 1 GM/250 ML BAG IVPB SCH ×2 (08:25→18:28)
--- NOTE | 2018-08-12 08:30 | RAD ---
Date of service: 08/11/2018 HISTORY: Sepsis Patient COMPARISON: 02/11/2017 FINDINGS: LUNGS: No active pulmonary disease. PLEURA: No significant pleural effusion identified, no pneumothorax apparent. CARDIOVASCULAR: No aortic atherosclerotic calcification present. Mild cardiomegaly no pulmonary vascular congestion. OSSEOUS STRUCTURES: No significant abnormalities. VISUALIZED UPPER ABDOMEN: Normal. OTHER FINDINGS: None. IMPRESSION: No active disease.
[2018-08-12] MEDS: Levothyroxine 50 MCG TAB PO SCH (09:49)
--- NOTE | 2018-08-12 10:19 | CP.PCM.PN ---
Subjective - Date & Time of Evaluation Date of Evaluation: 08/12/18 Time of Evaluation: 10:14 Objective - Vital Signs/Intake and Output Vital Signs (last 24 hours): Temp Pulse Resp BP Pulse Ox 98 F 65 20 188/80 H 96 08/12/18 06:00 08/12/18 06:00 08/12/18 06:00 08/12/18 09:50 08/12/18 06:00 Intake and Output: 08/12/18 08/12/18 06:59 18:59 Intake Total 120 Balance 120 - Medications Medications: Current Medications Alprazolam (Xanax) 1 mg PO DAILY [facility]; Protocol Stop: 08/19/18 10:01 Last Admin: 08/12/18 09:49 Dose: 1 mg Amlodipine Besylate (Norvasc) 2.5 mg PO DAILY [facility]A Last Admin: 08/12/18 09:49 Dose: 2.5 mg Aspirin (Ecotrin) 81 mg PO DAILY [facility]A Last Admin: 08/12/18 09:50 Dose: 81 mg Furosemide (Lasix) 40 mg IVP DAILY [facility]A Last Admin: 08/12/18 09:50 Dose: 40 mg Gabapentin (Neurontin) 300 mg PO TID [facility]; Protocol Last Admin: 08/12/18 09:48 Dose: 300 mg Piperacillin Sod/Tazobactam Sod (Zosyn 3.375 In Ns 100ml) 100 mls @ 25 mls/hr IVPB Q8 [facility]; Protocol Stop: 08/18/18 22:01 Last Admin: 08/12/18 07:58 Dose: 25 mls/hr Vancomycin HCl (Vancomycin 1gm) 1 gm in 250 mls @ 167 mls/hr IVPB Q12H [facility]ELA; P rotocol Last Admin: 08/12/18 08:25 Dose: Not Given Levothyroxine Sodium (Synthroid) 50 mcg PO DAILY [facility] Last Admin: 08/12/18 09:49 Dose: 50 mcg Losartan Potassium (Cozaar) 100 mg PO DAILY [facility] Last Admin: 08/12/18 09:50 Dose: 100 mg Metoprolol Tartrate (Lopressor) 100 mg PO DAILY [facility] Last Admin: 08/12/18 09:49 Dose: 100 mg - Labs Labs: 08/12/18 07:00 08/12/18 07:00 PT 10.6 SECONDS (9.4-12.5) 08/11/18 17:21 INR 0.93 08/11/18 17:21 APTT 29.0 Seconds (25.1-36.5) 08/11/18 17:21 - Constitutional Appears: Well, Non-toxic, No Acute Distress - Head Exam Head Exam: ATRAUMATIC, NORMOCEPHALIC - Extremities Exam Additional comments: Vasc: DP and PT pulses palpable b/l, skin temp warm to warm from distal to proximal on the right and wnl on the left; cap refill <3 seconds to all digits; mild edema noted b/l R>L Derm: right: there is a superficial laceration with intact sutures on the right lower leg adjacent to the calf; there is evidence of hematoma formation immediately distal to the laceration site that is mildly fluctuant, no signs of pus or purulent drainage; there is cellulitis present about the left lower leg, from the knee distally to the ankle joint; there is evidence of soft tissue infection present left: there is evidence of a chronic wound that is stable and healed at the medial left ankle proximal to the malleolus, no other lesions present, evidence of mild weeping from leg NEURO: pedal sensation is grossly diminished b/l Ortho: no pain on palpation to the laceration site or anywhere about the lower legs; no other gross pathology noted - Neurological Exam Neurological Exam: Alert, Awake, Oriented x3 - Psychiatric Exam Psychiatric exam: Normal Affect, Normal Mood Assessment and Plan - Assessment and Plan (Free Text) Assessment: 82 yo patient with chronic pedal edema seen and evaluated for right leg c ellulitis and hematoma formation s/p superficial laceration
--- NOTE | 2018-08-12 12:29 | CARD ---
APPROVED REPORT Date of service: 08/11/2018 EKG Measurement Heart [id number] <Conclusion> Normal sinus rhythm Normal ECG
--- NOTE | 2018-08-12 12:31 | PN ---
DATE: 08/12/2018 SUBJECTIVE: She is sitting up in bed about to eat breakfast. She is little uncomfortable with her lower extremities, they are red and inflamed, to the cellulitis of both lower extremities. She is currently on antibiotics. She is on Cozaar, Ecotrin, potassium replacement, Lasix IV which has definitely made a difference with the swelling, Lopressor, Neurontin, Synthroid, vancomycin IV, Xanax and Zosyn IV. A little bit of pain but not as bad as yesterday. PHYSICAL EXAMINATION: VITAL SIGNS: A 98 temperature, 65 pulse, 181/84 blood pressure, I will change his blood pressure medications around, 20 respiratory rate and 96% O2 sat on room air. HEENT: Head is atraumatic and normocephalic. HEART: Regular rate. LUNGS: Decreased breath sounds but clear. ABDOMEN: Soft, obese and nontender. EXTREMITIES: Very red and inflamed. LABORATORY DATA: She has 11.2 white count coming down, 11.8 hemoglobin, 36.8 hematocrit with 300,000 platelets. She has a 138 sodium, potassium 4, BUN is 22, creatinine 0.9, GFR is greater than 60, sugar is 107, calcium is 9.1, total bili is 0.4, AST is 31, ALT is 23, alk phos 76 and total protein 6.5. Gram stains are pending. she did have a chest x-ray which showed no active disease. There are consults for infectious disease and podiatry for bilateral lower extremity cellulitis with edema and will help her with her blood pressure also, I will add some Norvasc, IV antibiotics and made her inpatient today. She will need more than two overnights to finish her leg cellulitis. Jesus Ann DO MTDD
--- NOTE | 2018-08-12 13:01 | CP.PCM.CON ---
<Gabrielle Mcginnis - Last Filed: 08/12/18 13:04> History of Present Illness - History of Present Illness History of Present Illness: Infectious Disease Consult for Camille Boykin PGY3 This is an 82yo female with past medical history of HTN, HLD, hypothyroidism, pedal edema, cellulitis + for pseudomonas, enterobacter, coag neg staph who came in for R leg wound. Patient had a laceration on R medial leg which was repaired in ED 3 days ago and was d/c with Keflex. She was also given a tetanus shot. Patient report she has been having pain in both legs and difficulty walking. She has been having drainage from another wound in the R leg. She denies fever/chills, chest pain, shortness of breath, nausea/vomiting/diarrhea, numbness/tingling, fever/chills, dysuria or hematuria. She follows up podiatry regularly. Past medical history: HTN, HLD, hypothyroidism, pedal edema, cellulitis + for pseudomonas Past surgical history: L foot biopsy Home meds: Reviewed Allergies: NKDA Social history: Denies EtOH, drug or tobacco use Family history: HTN Review of Systems - Review of Systems All systems: reviewed and no additional remarkable complaints except Review of Systems: 12 point ROS reviewed as per HPI and is otherwise negative Past Patient History - Infectious Disease Hx of Infectious Diseases: None - Past Social History Smoking Status: Never Smoked - CARDIAC Hx Cardiac Disorders: No Hx Angina: No Hx Cardia Arrhythmia: No Hx Circulatory Problems: No Hx Congestive Heart Failure: No Hx Heart Murmur: No Hx Heart Transplant: No Hx Hypercholesterolemia: Yes Hx Hypertension: Yes Hx Internal Defibrillator: No Hx Mitral Valve Prolapse: No Hx Pacemaker: No Hx Peripheral Edema: No Hx Peripheral Vascular Disease: No - PULMONARY Hx Respiratory Disorders: No Hx Asthma: No Hx Bronchitis: No Hx Chronic Obstructive Pulmonary Disease (COPD): No Hx Emphysema: No Hx Pneumonia: No Hx Respiratory Aspiration: No Hx Respiratory Tract Infection: No Hx Sleep Apnea: No Hx Tuberculosis: No - NEUROLOGICAL Hx Neurological Disorder: No Hx Alzheimer's Disease: No HX Cerebrovascular Accident: No Hx Dementia: No Hx Dizziness: No Hx Meningitis: No Hx Migraine: No Hx Parkinson's Disease: No Hx Seizures: No Hx Transient Ischemic Attacks (TIA): No - HEENT Hx HEENT Problems: No Hx Blind: No Hx Cataracts: No Hx Deafness: No Hx Difficulty Chewing: No Hx Epistaxis: No Hx Glaucoma: No Hx Macular Degeneration: No - RENAL Hx Chronic Kidney Disease: No Hx Dialysis: No Hx Kidney Stones: No Hx Neurogenic Bladder: No Hx Pyelonephritis: No Hx Renal (Kidney) Cancer: No Hx Renal Failure: No - ENDOCRINE/METABOLIC Hx Endocrine Disorders: No Hx Adrenal Cancer: No Hx Diabetes Insipidus: No Hx Diabetes Mellitus Type 1: No Hx Diabetes Mellitus Type 2: No Hx Hyperthyroidism: No Hx Hypothyroidism: No Hx Systemic Lupus Erythematosus: No - HEMATOLOGICAL/ONCOLOGICAL Hx Blood Disorders: No Hx AIDS: No Hx Anemia: No Hx Cancer: No Hx Chemotherapy: No Hx Cirrhosis: No Hx Hemophilia: No Hx Hepatitis A: No Hx Hepatitis B: No Hx Hepatitis C: No Hx Human Immunodeficiency Virus (HIV): No Hx Metastesis: No Hx Shingles: No Hx Sickle Cell Disease: No Hx Unexplained Bleeding: No - INTEGUMENTARY Hx Dermatological Problems: No Hx Basil Cell: No Hx Eczema: No Hx Melanoma: No Hx Psoriasis: No Hx Squamous Cell: No - MUSCULOSKELETAL/RHEUMATOLOGICAL Hx Musculoskeletal Disorders: No Hx Arthritis: Yes Hx Back Pain: No Hx Degenerative Joint Disease: No Hx Falls: No Hx Fractures: No Hx Gout: No Hx Herniated Disk: No Hx Myasthenia Gravis: No Hx Osteoarthritis: No Hx Osteomyelitis: No Hx Osteoporosis: No Hx Rhabdomyolysis: No Hx Spinal Stenosis: No Hx Unsteady Gait: No - GASTROINTESTINAL Hx Gastrointestinal Disorders: No Hx Colostomy: No Hx Crohn's Disease: No Hx Diverticulitis: No Hx Gall Bladder Disease: No Hx Gastroesophageal Reflux: No Hx Ileostomy: No Hx Liver Failure: No Hx Pancreatitis: No HX Swallowing Problems: No Hx Ulcer: No - GENITOURINARY/GYNECOLOGICAL Hx Genitourinary Disorders: No Hx Hematuria: No Hx Incontinence: No Hx Sexually Transmitted Disorders: No Hx Urinary Tract Infection: No - PSYCHIATRIC Hx Psychophysiologic Disorder: No Hx Anxiety: Yes Hx Bipolar Disorder: No Hx Emotional Abuse: No Hx Hallucinations: No Hx Panic Symptoms: No Hx Paranoia: No Hx Post Traumatic Stress Disorder: No Hx Psychosis: No Hx Physical Abuse: No Hx Schizophrenia: No Hx Sexual Abuse: No - SURGICAL HISTORY Hx Surgeries: No Hx Amputation: No Hx Appendectomy: No Hx Cardiac Catheterization: No Hx Cholecystectomy: No Hx Coronary Stent: No Hx Gastric Bypass Surgery: No Hx Hysterectomy: No Hx Joint Replacement: No Hx Kidney Transplant: No Hx Liver Transplant: No Hx Mastectomy: No Hx Musculoskeletal Surgery: No Hx Open Heart Surgery: No Hx Orthopedic Surgery: No Hx Splenectomy: No Hx Valve Replacement: No - ANESTHESIA Hx Anesthesia: No Meds Allergies/Adverse Reactions: Allergies Allergy/AdvReac Type Severity Reaction Status Date / Time No Known Allergies Allergy Verified 08/09/18 17:14 - Medications Medications: Current Medications Alprazolam (Xanax) 1 mg PO DAILY [facility]; Protocol Stop: 08/19/18 10:01 Last Admin: 08/12/18 09:49 Dose: 1 mg Amlodipine Besylate (Norvasc) 2.5 mg PO DAILY [facility] Last Admin: 08/12/18 09:49 Dose: 2.5 mg Aspirin (Ecotrin) 81 mg PO DAILY [facility] Last Admin: 08/12/18 09:50 Dose: 81 mg Furosemide (Lasix) 40 mg IVP DAILY [facility] Last Admin: 08/12/18 09:50 Dose: 40 mg Gabapentin (Neurontin) 300 mg PO TID [facility]; Protocol Last Admin: 08/12/18 09:48 Dose: 300 mg Piperacillin Sod/Tazobactam Sod (Zosyn 3.375 In Ns 100ml) 100 mls @ 25 mls/hr IVPB Q8 [facility]; Protocol Stop: 08/18/18 22:01 Last Admin: 08/12/18 07:58 Dose: 25 mls/hr Vancomycin HCl (Vancomycin 1gm) 1 gm in 250 mls @ 167 mls/hr IVPB Q12H [facility]; Protocol Last Admin: 08/12/18 08:25 Dose: Not Given Levothyroxine Sodium (Synthroid) 50 mcg PO DAILY [facility] Last Admin: 08/12/18 09:49 Dose: 50 mcg Losartan Potassium (Cozaar) 100 mg PO DAILY [facility] Last Admin: 08/12/18 09:50 Dose: 100 mg Metoprolol Tartrate (Lopressor) 100 mg PO DAILY [facility] Last Admin: 08/12/18 09:49 Dose: 100 mg Physical Exam - Constitutional Appears: No Acute Distress - Head Exam Head Exam: ATRAUMATIC, NORMAL INSPECTION, NORMOCEPHALIC - Eye Exam Eye Exam: Normal appearance, PERRL Pupil Exam: NORMAL ACCOMODATION, PERRL - ENT Exam ENT Exam: Mucous Membranes Moist - Respiratory Exam Respiratory Exam: Clear to Auscultation Bilateral, NORMAL BREATHING PATTERN. absent: Rales, Rhonchi, Wheezes - Cardiovascular Exam Cardiovascular Exam: REGULAR RHYTHM, +S1, +S2. absent: Gallop, Rubs, Systolic Murmur - GI/Abdominal Exam GI & Abdominal Exam: Normal Bowel Sounds, Soft. absent: Mass, Rebound, Rigid, Tenderness - Extremities Exam Extremities exam: Positive for: pedal edema. Negative for: calf tenderness Additional comments: drainage of R LE wound. RLE sutures clean and dry. bilateral erythema. L LE has eschar without drainage - Neurological Exam Neurological exam: Alert, CN II-XII Intact, Oriented x3 - Psychiatric Exam Psychiatric exam: Normal Affect, Normal Mood - Skin Skin Exam: Dry, Warm Results - Vital Signs Recent Vital Signs: Last Vital Signs Temp 98 F 08/12/18 06:00 Pulse 65 08/12/18 06:00 Resp 20 08/12/18 06:00 BP 188/80 H 08/12/18 09:50 Pulse Ox 96 08/12/18 06:00 - Labs Result Diagrams: 08/12/18 07:00 08/12/18 07:00 Labs: Laboratory Results - last 24 hr 08/11/18 08/11/18 08/11/18 17:21 17:21 17:21 WBC 12.3 H RBC 4.38 Hgb 13.1 Hct 39.5 MCV 90.2 MCH 29.9 MCHC 33.2 RDW 13.7 Plt Count 349 MPV 8.4 Gran % 76.5 H Lymph % (Auto) 18.0 L [place] % (Auto) 4.4 Eos % (Auto) 0.9 L Baso % (Auto) 0.2 Gran # 9.42 H Lymph # (Auto) 2.2 [place] # (Auto) 0.5 Eos # (Auto) 0.1 Baso # (Auto) 0.03 PT 10.6 INR 0.93 APTT 29.0 pO2 49 VBG pH 7.34 VBG pCO2 63.0 H VBG HCO3 34.0 H VBG Total CO2 35.9 H VBG O2 Sat (Calc) 86.5 H VBG Base Excess 6.1 H VBG Potassium 3.3 L Sodium 139.0 Chloride 101.0 Glucose 102 Lactate 0.9 FiO2 21.0 Potassium Carbon Dioxide Anion Gap BUN Creatinine Est GFR ( Amer) Est GFR (Non-Af Amer) Random Glucose Calcium Phosphorus Magnesium Total Bilirubin AST ALT Alkaline Phosphatase Total Protein Albumin Globulin Albumin/Globulin Ratio Venous Blood Potassium 3.3 L 08/11/18 08/12/18 08/12/18 17:21 07:00 07:00 WBC 11.2 H RBC 4.06 Hgb 11.8 L Hct 36.8 MCV 90.6 MCH 29.1 MCHC 32.1 RDW 13.9 Plt Count 300 MPV 8.1 Gran % Lymph % (Auto) [place] % (Auto) Eos % (Auto) Baso % (Auto) Gran # Lymph # (Auto) [place] # (Auto) Eos # (Auto) Baso # (Auto) PT INR APTT pO2 VBG pH VBG pCO2 VBG HCO3 VBG Total CO2 VBG O2 Sat (Calc) VBG Base Excess VBG Potassium Sodium 140 138 Chloride 99 101 Glucose Lactate FiO2 Potassium 3.4 L 4.0 Carbon Dioxide 34 H 34 H Anion Gap 11 7 L BUN 27 H 22 H Creatinine 0.9 0.9 Est GFR ( Amer) > 60 > 60 Est GFR (Non-Af Amer) 60 60 Random Glucose 105 107 Calcium 9.9 9.1 Phosphorus 3.7 Magnesium 2.3 H Total Bilirubin 0.3 0.4 AST 36 31 ALT 25 23 Alkaline Phosphatase 108 76 Total Protein 7.6 6.5 Albumin 4.1 3.3 Globulin 3.6 3.2 Albumin/Globulin Ratio 1.1 1.0 L Venous Blood Potassium Assessment & Plan - Assessment and Plan (Free Text) Assessment: 1. LE cellulitis - R LE purulent cellulitis. L LE nonpurulent cellulitis 2. Pedal edema 3. HTN 4. HLD 5. Hypothyroidism Plan: Wound cultures pending. Septic work up pending. Will obtain DAVID, venous duplex, R LE XR to rule out osteo. Podiatry following for wound care. Will continue Zosyn and Vancomycin. Case seen, discussed and reviewed with Dr. Keon Mcginnis PGY3 - Date & Time Date: 08/12/18 Time: 13:21 <Goyo Herbert - Last Filed: 08/12/18 16:40> Meds - Medications Medications: Current Medications Alprazolam (Xanax) 1 mg PO DAILY [facility]; Protocol Stop: 08/19/18 10:01 Last Admin: 08/12/18 09:49 Dose: 1 mg Amlodipine Besylate (Norvasc) 2.5 mg PO DAILY [facility] Last Admin: 08/12/18 09:49 Dose: 2.5 mg Aspirin (Ecotrin) 81 mg PO DAILY [facility] Last Admin: 08/12/18 09:50 Dose: 81 mg Furosemide (Lasix) 40 mg IVP DAILY [facility] Last Admin: 08/12/18 09:50 Dose: 40 mg Gabapentin (Neurontin) 300 mg PO TID [facility]; Protocol Last Admin: 08/12/18 09:48 Dose: 300 mg Piperacillin Sod/Tazobactam Sod (Zosyn 3.375 In Ns 100ml) 100 mls @ 25 mls/hr IVPB Q8 [facility]; Protocol Stop: 08/18/18 22:01 Last Admin: 08/12/18 07:58 Dose: 25 mls/hr Vancomycin HCl (Vancomycin 1gm) 1 gm in 250 mls @ 167 mls/hr IVPB Q12H [facility]; Protocol Last Admin: 08/12/18 08:25 Dose: Not Given Levothyroxine Sodium (Synthroid) 50 mcg PO DAILY [facility] Last Admin: 08/12/18 09:49 Dose: 50 mcg Losartan Potassium (Cozaar) 100 mg PO DAILY [facility] Last Admin: 08/12/18 09:50 Dose: 100 mg Metoprolol Tartrate (Lopressor) 100 mg PO DAILY [facility] Last Admin: 08/12/18 09:49 Dose: 100 mg Results - Vital Signs Recent Vital Signs: Last Vital Signs Temp 97.6 F 08/12/18 14:00 Pulse 60 08/12/18 14:00 Resp 18 08/12/18 14:00 BP 101/55 L 08/12/18 14:00 Pulse Ox 97 08/12/18 14:00 - Labs Result Diagrams: 08/12/18 07:00 08/12/18 07:00 Labs: Laboratory Results - last 24 hr 08/11/18 08/11/18 08/11/18 17:21 17:21 17:21 WBC 12.3 H RBC 4.38 Hgb 13.1 Hct 39.5 MCV 90.2 MCH 29.9 MCHC 33.2 RDW 13.7 Plt Count 349 MPV 8.4 Gran % 76.5 H Lymph % (Auto) 18.0 L [place] % (Auto) 4.4 Eos % (Auto) 0.9 L Baso % (Auto) 0.2 Gran # 9.42 H Lymph # (Auto) 2.2 [place] # (Auto) 0.5 Eos # (Auto) 0.1 Baso # (Auto) 0.03 PT 10.6 INR 0.93 APTT 29.0 pO2 49 VBG pH 7.34 VBG pCO2 63.0 H VBG HCO3 34.0 H VBG Total CO2 35.9 H VBG O2 Sat (Calc) 86.5 H VBG Base Excess 6.1 H VBG Potassium 3.3 L Sodium 139.0 Chloride 101.0 Glucose 102 Lactate 0.9 FiO2 21.0 Potassium Carbon Dioxide Anion Gap BUN Creatinine Est GFR ( Amer) Est GFR (Non-Af Amer) Random Glucose Calcium Phosphorus Magnesium Total Bilirubin AST ALT Alkaline Phosphatase Total Protein Albumin Globulin Albumin/Globulin Ratio Venous Blood Potassium 3.3 L 08/11/18 08/12/18 08/12/18 17:21 07:00 07:00 WBC 11.2 H RBC 4.06 Hgb 11.8 L Hct 36.8 MCV 90.6 MCH 29.1 MCHC 32.1 RDW 13.9 Plt Count 300 MPV 8.1 Gran % Lymph % (Auto) [place] % (Auto) Eos % (Auto) Baso % (Auto) Gran # Lymph # (Auto) [place] # (Auto) Eos # (Auto) Baso # (Auto) PT INR APTT pO2 VBG pH VBG pCO2 VBG HCO3 VBG Total CO2 VBG O2 Sat (Calc) VBG Base Excess VBG Potassium Sodium 140 138 Chloride 99 101 Glucose Lactate FiO2 Potassium 3.4 L 4.0 Carbon Dioxide 34 H 34 H Anion Gap 11 7 L BUN 27 H 22 H Creatinine 0.9 0.9 Est GFR ( Amer) > 60 > 60 Est GFR (Non-Af Amer) 60 60 Random Glucose 105 107 Calcium 9.9 9.1 Phosphorus 3.7 Magnesium 2.3 H Total Bilirubin 0.3 0.4 AST 36 31 ALT 25 23 Alkaline Phosphatase 108 76 Total Protein 7.6 6.5 Albumin 4.1 3.3 Globulin 3.6 3.2 Albumin/Globulin Ratio 1.1 1.0 L Venous Blood Potassium Assessment & Plan - Assessment and Plan (Free Text) Plan: Infectious Diseases Attending Physician Attestation Patient seen and examined, discussed with medical historian. I have reviewed the patient's history of present illness, past medical, family and social histories, personal history, physical exam, lab findings and imaging studies. I agree with the above findings, assessment and plan. In addition, will continue Vancoymcin and Zosyn for probable right lower extremity skin and skin structure infection with chronic leg wound, need to rule out PAD. Will get duplex U/S of legs, DAVID's, check wound cx and will monitor clinically. Follow up further plans of Podiatry.
--- NOTE | 2018-08-12 17:04 | RAD ---
Date of service: 08/12/2018 PROCEDURE: Radiographs of the right tibia and fibula. HISTORY: r/o osteo COMPARISON: None available TECHNIQUE: Frontal and lateral views obtained. FINDINGS: BONES: No fracture or destructive lesion. JOINT SPACES: Severe degenerative changes in the knee OTHER FINDINGS: None. IMPRESSION: No evidence of osteomyelitis
--- NOTE | 2018-08-12 19:34 | US ---
HISTORY: Leg pain and swelling. Evaluate for DVT PHYSICIAN(S): Shekhar Dorantes MD. TECHNIQUE: Duplex sonography and color-flow Doppler with graded compression were used to evaluate the deep venous systems of both lower extremities. FINDINGS: The visualized deep venous systems of both lower extremities are sonographically normal and compressible. Normal wave forms and augmentation are seen. There is no sonographic evidence for deep venous thrombosis in the visualized segments of both lower extremities. IMPRESSION: No sonographic evidence for deep venous thrombosis in the visualized segments of both lower extremities.
[2018-08-13] MEDS: Vancomycin 1gm in NS 250ml 1 GM/250 ML BAG IVPB SCH (05:03)
[2018-08-13] MEDS: Piperacillin/Tazobact 3.375 gm 100 ML IVPB SCH ×2 (06:48→13:24)
[2018-08-13 07:20] LABS: HEMOGLOBIN 12.4 g/dL (12.0-16.0); MEAN CORPUSCULAR HEMOGLOBIN 29.3 pg (25.0-35.0); MEAN CORPUSCULAR HGB CONC 32.2 g/dl (31.0-37.0); MEAN PLATELET VOLUME 8.4 fl (7.0-11.0); RBC 4.23 10^6/uL (3.5-6.1); WHITE BLOOD COUNT 11.1 10^3/uL (4.5-11.0)
--- NOTE | 2018-08-13 07:24 | CP.PCM.PN ---
<Gabrielle Mcginnis - Last Filed: 08/13/18 14:20> Subjective - Date & Time of Evaluation Date of Evaluation: 08/13/18 Time of Evaluation: 07:00 - Subjective Subjective: Infectious Disease Progress Note for Camille Boykin PGY3 Patient seen and examined at bedside. She is resting comfortably in bed. She remains afebrile. Objective - Vital Signs/Intake and Output Vital Signs (last 24 hours): Temp Pulse Resp BP Pulse Ox 98.1 F 73 18 143/76 96 08/12/18 22:38 08/12/18 22:38 08/12/18 22:38 08/12/18 22:38 08/12/18 22:38 Intake and Output: 08/13/18 08/13/18 06:59 18:59 Intake Total 1470 Balance 1470 - Medications Medications: Current Medications Alprazolam (Xanax) 1 mg PO DAILY [facility]; Protocol Stop: 08/19/18 10:01 Last Admin: 08/12/18 09:49 Dose: 1 mg Amlodipine Besylate (Norvasc) 2.5 mg PO DAILY [facility] Last Admin: 08/12/18 09:49 Dose: 2.5 mg Aspirin (Ecotrin) 81 mg PO DAILY [facility] Last Admin: 08/12/18 09:50 Dose: 81 mg Furosemide (Lasix) 40 mg IVP DAILY [facility] Last Admin: 08/12/18 09:50 Dose: 40 mg Gabapentin (Neurontin) 300 mg PO TID [facility]; Protocol Last Admin: 08/12/18 18:27 Dose: 300 mg Piperacillin Sod/Tazobactam Sod (Zosyn 3.375 In Ns 100ml) 100 mls @ 25 mls/hr IVPB Q8 [facility]; Protocol Stop: 08/18/18 22:01 Last Admin: 08/13/18 06:48 Dose: 25 mls/hr Vancomycin HCl (Vancomycin 1gm) 1 gm in 250 mls @ 167 mls/hr IVPB Q12H [facility]; Protocol Last Admin: 08/13/18 05:03 Dose: 167 mls/hr Levothyroxine Sodium (Synthroid) 50 mcg PO DAILY [facility] Last Admin: 08/12/18 09:49 Dose: 50 mcg Losartan Potassium (Cozaar) 100 mg PO DAILY [facility] Last Admin: 08/12/18 09:50 Dose: 100 mg Metoprolol Tartrate (Lopressor) 100 mg PO DAILY [facility] Last Admin: 08/12/18 09:49 Dose: 100 mg - Labs Labs: 08/13/18 06:30 08/12/18 07:00 PT 10.6 SECONDS (9.4-12.5) 08/11/18 17:21 INR 0.93 08/11/18 17:21 APTT 29.0 Seconds (25.1-36.5) 08/11/18 17:21 - Constitutional Appears: No Acute Distress - Head Exam Head Exam: ATRAUMATIC, NORMAL INSPECTION, NORMOCEPHALIC - Eye Exam Eye Exam: Normal appearance, PERRL Pupil Exam: NORMAL ACCOMODATION, PERRL - ENT Exam ENT Exam: Mucous Membranes Moist - Neck Exam Neck Exam: Full ROM - Respiratory Exam Respiratory Exam: Clear to Ausculation Bilateral, NORMAL BREATHING PATTERN. absent: Rales, Rhonchi, Wheezes - Cardiovascular Exam Cardiovascular Exam: REGULAR RHYTHM, +S1, +S2. absent: Gallop, Rubs, Murmur - GI/Abdominal Exam GI & Abdominal Exam: Soft, Normal Bowel Sounds. absent: Rigid, Tenderness, Mass, Rebound - Extremities Exam Extremities Exam: Pedal Edema Additional comments: R leg draining, sutures in place with some granuloma tissue protruding - Neurological Exam Neurological Exam: Alert, Awake, CN II-XII Intact, Oriented x3 - Psychiatric Exam Psychiatric exam: Normal Affect, Normal Mood - Skin Skin Exam: Dry, Warm Assessment and Plan - Assessment and Plan (Free Text) Assessment: 1. LE cellulitis - R LE purulent cellulitis. L LE nonpurulent cellulitis 2. Pedal edema 3. HTN 4. HLD 5. Hypothyroidism Plan: Wound cultures positive for staph epidermidis which can be colonization. Previous cultures positive for pseudomondas. Will start patient on Cefepime and D/c vanc and zosyn. DAVID was normal. US negative for DVT and XR of LE did not show evidence of osteo. Do not suspect osteomyelitis in this patient. Will continue to monitor clinically. Case seen, discussed and reviewed with Dr. Keon Mcginnis PGY3 <Goyo Herbert - Last Filed: 08/13/18 16:56> Objective - Vital Signs/Intake and Output Vital Signs (last 24 hours): Temp Pulse Resp BP Pulse Ox 97.6 F 62 18 145/78 95 08/13/18 14:00 08/13/18 14:00 08/13/18 14:00 08/13/18 14:00 08/13/18 14:00 Intake and Output: 08/13/18 08/13/18 06:59 18:59 Intake Total 1470 Balance 1470 - Medications Medications: Current Medications Alprazolam (Xanax) 1 mg PO DAILY [facility]; Protocol Stop: 08/19/18 10:01 Last Admin: 08/13/18 10:17 Dose: 1 mg Amlodipine Besylate (Norvasc) 2.5 mg PO DAILY [facility] Last Admin: 08/13/18 10:17 Dose: 2.5 mg Aspirin (Ecotrin) 81 mg PO DAILY [facility] Last Admin: 08/13/18 10:15 Dose: 81 mg Furosemide (Lasix) 20 mg IVP DAILY [facility] Last Admin: 08/13/18 10:15 Dose: 20 mg Gabapentin (Neurontin) 300 mg PO TID [facility]; Protocol Last Admin: 08/13/18 13:24 Dose: 300 mg Cefepime HCl (Maxipime 1gm) 1 gm in 100 mls @ 100 mls/hr IVPB Q8 [facility]; Protocol Last Admin: 08/13/18 15:11 Dose: 100 mls/hr Levothyroxine Sodium (Synthroid) 50 mcg PO DAILY [facility] Last Admin: 08/13/18 10:17 Dose: 50 mcg Losartan Potassium (Cozaar) 100 mg PO DAILY [facility] Last Admin: 08/13/18 10:14 Dose: 100 mg Metoprolol Tartrate (Lopressor) 100 mg PO DAILY [facility] Last Admin: 08/13/18 10:16 Dose: 100 mg - Labs Labs: 08/13/18 06:30 08/13/18 06:30 PT 10.6 SECONDS (9.4-12.5) 08/11/18 17:21 INR 0.93 08/11/18 17:21 APTT 29.0 Seconds (25.1-36.5) 08/11/18 17:21 Assessment and Plan - Assessment and Plan (Free Text) Plan: Infectious Diseases Attending Physician Attestation Patient seen and examined, discussed with medical practitioners. I have reviewed the patient's history of present illness, past medical, family and social histories, personal history, physical exam, lab findings and imaging studies. I agree with the above findings, assessment and plan. In addition, will continue Vancoymcin and change Zosyn to Cefepime for probable right lower extremity skin and skin structure infection with chronic leg wound. Follow up further plans of Podiatry.
[2018-08-13 07:34] LABS: ALB/GLOB RATIO 1.1 (1.1-1.8); ALBUMIN 3.4 g/dL (3.0-4.8); ALT/SGPT 25 U/L (7-56); AST/SGOT 28 U/L (14-36); BLOOD UREA NITROGEN 31 mg/dL (7-21); CALCIUM 8.9 mg/dL (8.4-10.5); GFR NON-AFRICAN AMERICAN 53
--- NOTE | 2018-08-13 08:30 | PN ---
DATE: 08/13/2018 SUBJECTIVE: She is resting comfortably in bed this morning. She is alert. She tells me the legs are doing a little bit better. She is being seen by Infectious Disease and by Podiatry. PHYSICAL EXAMINATION: VITAL SIGNS: She has a 98.1 temp, 73 pulse, 143/76 blood pressure, 18 respiratory rate and 96% O2 sat on room air. GENERAL: She is smiling. She is doing better. She is happy with how the antibiotics are working. HEENT: Head is atraumatic, normocephalic. HEART: Regular rate. LUNGS: Decreased breath sounds, but clear. ABDOMEN: Soft, obese, nontender. Positive bowel sounds. EXTREMITIES: Have no edema now. They are wrapped up. The redness that I could see is much better. She looks improved. No pain. MEDICATIONS: She is currently on Cozaar, Ecotrin, Lasix, Lopressor, Neurontin, Norvasc, Synthroid, vancomycin IV, Xanax and Zosyn. LABORATORY DATA: She has 11.1 white count, a little bit high, but coming down, 12.4 hemoglobin, 38.5 hematocrit with 310 platelets. She has a 138 sodium, potassium 3.7, BUN 31, creatinine 1, went up a little bit. GFR is 53, sugar is 103, calcium is 8.9, total bili is 0.4, AST is 28, ALT is 25, alk phos 73, total protein 6.5. ASSESSMENT: I am going to decrease the Lasix to 20 mg IV daily from 40. I want to get her out of bed to chair. I want Physical Therapy to see her. I want to get her moving and maybe when she is off the antibiotics, we will get her out Transitional Care Unit. We will see what physical therapy tells me. Therese Quinonez who has got bilateral lower extremity cellulitis with a congestive heart failure swelling picture. Jesus Ann DO MTDD
--- NOTE | 2018-08-13 10:00 | US ---
PROCEDURE: Lower extremity DAVID exam HISTORY: Peripheral vascular disease with pain and ulceration. Diabetes PHYSICIAN(S): Shekhar Dorantes MD. FINDINGS: The resting DAVID's are normal: right, 1.13and left, 1.13. The brachial systolic pressures are symmetric. The low thigh pressures and waveforms are relatively normal. The calf PVR waveforms augment normally. No significant gradients are noted across the thighs. The ankle and metatarsal waveforms are relatively normal and symmetric. No significant pressure gradients are noted across the lower legs. IMPRESSION: 1. Relatively normal DAVID and PVR examination at rest.
[2018-08-13] MEDS: Levothyroxine 50 MCG TAB PO SCH (10:17)
--- NOTE | 2018-08-13 14:57 | CP.PCM.PN ---
Subjective - Date & Time of Evaluation Date of Evaluation: 08/13/18 Time of Evaluation: 14:53 - Subjective Subjective: Podiatry progress note for Dr. Spear 82 yo female patient seen and evaluated at bedside with Dr. Spear. States that she is in no pain today. is present at bedside. States that she has been sleeping well while she is in house. Denies N/V/F/C/SOB/CP and has no other acute pedal complaints at this time. Objective - Vital Signs/Intake and Output Vital Signs (last 24 hours): Temp Pulse Resp BP Pulse Ox 98.1 F 68 18 152/75 H 95 08/13/18 06:00 08/13/18 10:16 08/13/18 06:00 08/13/18 10:17 08/13/18 06:00 Intake and Output: 08/13/18 08/13/18 06:59 18:59 Intake Total 1470 Balance 1470 - Medications Medications: Current Medications Alprazolam (Xanax) 1 mg PO DAILY [facility]; Protocol Stop: 08/19/18 10:01 Last Admin: 08/13/18 10:17 Dose: 1 mg Amlodipine Besylate (Norvasc) 2.5 mg PO DAILY [facility] Last Admin: 08/13/18 10:17 Dose: 2.5 mg Aspirin (Ecotrin) 81 mg PO DAILY [facility] Last Admin: 08/13/18 10:15 Dose: 81 mg Furosemide (Lasix) 20 mg IVP DAILY [facility] Last Admin: 08/13/18 10:15 Dose: 20 mg Gabapentin (Neurontin) 300 mg PO TID [facility]; Protocol Last Admin: 08/13/18 13:24 Dose: 300 mg Cefepime HCl (Maxipime 1gm) 1 gm in 100 mls @ 100 mls/hr IVPB Q8 [facility]; Protocol Levothyroxine Sodium (Synthroid) 50 mcg PO DAILY [facility] Last Admin: 08/13/18 10:17 Dose: 50 mcg Losartan Potassium (Cozaar) 100 mg PO DAILY [facility] Last Admin: 08/13/18 10:14 Dose: 100 mg Metoprolol Tartrate (Lopressor) 100 mg PO DAILY [facility] Last Admin: 08/13/18 10:16 Dose: 100 mg - Labs Labs: 08/13/18 06:30 08/13/18 06:30 PT 10.6 SECONDS (9.4-12.5) 08/11/18 17:21 INR 0.93 08/11/18 17:21 APTT 29.0 Seconds (25.1-36.5) 08/11/18 17:21 - Constitutional Appears: Well, Non-toxic, No Acute Distress - Head Exam Head Exam: ATRAUMATIC, NORMOCEPHALIC - Extremities Exam Additional comments: Vasc: DP and PT pulses palpable b/l, skin temp warm to warm from distal to proximal on the right and wnl on the left; cap refill <3 seconds to all digits; mild edema noted b/l R>L Derm: right: there is a superficial laceration with intact sutures on the right lower leg adjacent to the calf; there is evidence of hematoma formation immediately distal to the laceration site that is no long fluctuant, laceration site has improved since admission, no signs of pus or purulent drainage; there is cellulitis present about the left lower leg - improving, from the knee distally to the ankle joint; there is evidence of soft tissue infection present but improvement appreciated left: there is evidence of a chronic wound that is stable and healed at the medial left ankle proximal to the malleolus, superficial blister present medially superior to the chronic stable wound NEURO: pedal sensation is grossly diminished b/l Ortho: no pain on palpation to the laceration site or anywhere about the lower legs; no other gross pathology noted - Neurological Exam Neurological Exam: Alert, Awake, Oriented x3 - Psychiatric Exam Psychiatric exam: Normal Affect, Normal Mood Assessment and Plan - Assessment and Plan (Free Text) Assessment: 82 yo patient with right leg cellulitis and hematoma formation s/p superficial laceration Plan: Patient seen and evaluated with Dr. Spear VSS, afebrile, WBC 11.1 Left leg wound culture final - staph epidermidis B/l legs cleansed with normal saline and dressed with xeroform, DSD, and PERRY Continue abx per ID - recs appreciated Plan for possible TCU upon discharge for deconditioning and abx regimen Podiatry will follow while in house
[2018-08-13] MEDS: Cefepime 1gm in NS 100ml 1 GM/100 ML BAG IVPB SCH ×2 (15:11→21:18)
[2018-08-14] MEDS: Cefepime 1gm in NS 100ml 1 GM/100 ML BAG IVPB SCH ×3 (06:05→21:09)
--- NOTE | 2018-08-14 06:54 | CP.PCM.PN ---
<Gabrielle Mcginnis - Last Filed: 08/14/18 12:20> Subjective - Date & Time of Evaluation Date of Evaluation: 08/14/18 Time of Evaluation: 07:00 - Subjective Subjective: Infectious Disease Progress Note for Camille Boykin PGY3 Patient seen and examined at bedside. She is resting comfortably in bed and is afebrile. She reports having pain in her legs R>L and states it feels the same. Objective - Vital Signs/Intake and Output Vital Signs (last 24 hours): Temp Pulse Resp BP Pulse Ox 98.3 F 69 18 158/79 H 95 08/13/18 22:00 08/13/18 22:00 08/13/18 22:00 08/13/18 22:00 08/13/18 22:00 Intake and Output: 08/13/18 08/14/18 18:59 06:59 Intake Total 1020 Balance 1020 - Medications Medications: Current Medications Alprazolam (Xanax) 1 mg PO DAILY [facility]; Protocol Stop: 08/19/18 10:01 Last Admin: 08/13/18 10:17 Dose: 1 mg Amlodipine Besylate (Norvasc) 2.5 mg PO DAILY [facility] Last Admin: 08/13/18 10:17 Dose: 2.5 mg Aspirin (Ecotrin) 81 mg PO DAILY [facility] Last Admin: 08/13/18 10:15 Dose: 81 mg Furosemide (Lasix) 20 mg IVP DAILY [facility] Last Admin: 08/13/18 10:15 Dose: 20 mg Gabapentin (Neurontin) 300 mg PO TID [facility]; Protocol Last Admin: 08/13/18 18:07 Dose: 300 mg Cefepime HCl (Maxipime 1gm) 1 gm in 100 mls @ 100 mls/hr IVPB Q8 [facility]; Protocol Last Admin: 08/14/18 06:05 Dose: 100 mls/hr Levothyroxine Sodium (Synthroid) 50 mcg PO DAILY [facility] Last Admin: 08/13/18 10:17 Dose: 50 mcg Losartan Potassium (Cozaar) 100 mg PO DAILY [facility] Last Admin: 08/13/18 10:14 Dose: 100 mg Metoprolol Tartrate (Lopressor) 100 mg PO DAILY [facility] Last Admin: 08/13/18 10:16 Dose: 100 mg - Labs Labs: 08/13/18 06:30 08/13/18 06:30 PT 10.6 SECONDS (9.4-12.5) 08/11/18 17:21 INR 0.93 08/11/18 17:21 APTT 29.0 Seconds (25.1-36.5) 08/11/18 17:21 - Constitutional Appears: No Acute Distress - Head Exam Head Exam: ATRAUMATIC, NORMAL INSPECTION, NORMOCEPHALIC - Eye Exam Eye Exam: Normal appearance, PERRL Pupil Exam: NORMAL ACCOMODATION, PERRL - ENT Exam ENT Exam: Mucous Membranes Moist - Respiratory Exam Respiratory Exam: Clear to Ausculation Bilateral, NORMAL BREATHING PATTERN. absent: Rales, Rhonchi, Wheezes - Cardiovascular Exam Cardiovascular Exam: REGULAR RHYTHM, +S1, +S2. absent: Gallop, Rubs, Murmur - GI/Abdominal Exam GI & Abdominal Exam: Soft, Normal Bowel Sounds. absent: Rigid, Tenderness, Mass, Rebound - Extremities Exam Extremities Exam: Pedal Edema. absent: Calf Tenderness Additional comments: R leg sutures in place- no drainage - Neurological Exam Neurological Exam: Alert, Awake, CN II-XII Intact, Oriented x3 - Skin Skin Exam: Dry, Warm Assessment and Plan - Assessment and Plan (Free Text) Assessment: 1. LE cellulitis - R LE purulent cellulitis. L LE nonpurulent cellulitis 2. Pedal edema 3. HTN 4. HLD 5. Hypothyroidism Plan: Wound cultures represent colonization. Will continue Cefepime day #2 and Vancomycin day #4. Podiatry recommendations reviewed. Continue wound care. Will continue to monitor patient clinically. Plan is for patient to go to TCU. Case seen, discussed and reviewed with Dr. Keon Mcginnis PGY3 <Goyo Herbert - Last Filed: 08/14/18 16:47> Objective - Vital Signs/Intake and Output Vital Signs (last 24 hours): Temp Pulse Resp BP Pulse Ox 97.8 F 68 20 127/59 L 96 08/14/18 14:00 08/14/18 14:00 08/14/18 14:00 08/14/18 14:00 08/14/18 14:00 Intake and Output: 08/14/18 08/14/18 06:59 18:59 Intake Total 1020 Balance 1020 - Medications Medications: Current Medications Alprazolam (Xanax) 1 mg PO DAILY [facility]; Protocol Stop: 08/19/18 10:01 Last Admin: 08/14/18 10:46 Dose: 1 mg Amino Acid Protein (Prostat 15 G Packet) 15 gm GT BID [facility] Amlodipine Besylate (Norvasc) 2.5 mg PO DAILY [facility] Last Admin: 08/14/18 10:47 Dose: 2.5 mg Aspirin (Ecotrin) 81 mg PO DAILY [facility] Last Admin: 08/14/18 10:46 Dose: 81 mg Furosemide (Lasix) 20 mg IVP DAILY [facility] Last Admin: 08/14/18 10:46 Dose: 20 mg Gabapentin (Neurontin) 300 mg PO TID [facility]; Protocol Last Admin: 08/14/18 14:50 Dose: 300 mg Cefepime HCl (Maxipime 1gm) 1 gm in 100 mls @ 100 mls/hr IVPB Q8 [facility]; Protocol Last Admin: 08/14/18 14:50 Dose: 100 mls/hr Vancomycin HCl (Vancomycin 1gm) 1 gm in 250 mls @ 167 mls/hr IVPB Q12H [facility]; Protocol Last Admin: 08/14/18 12:30 Dose: 167 mls/hr Levothyroxine Sodium (Synthroid) 50 mcg PO DAILY [facility] Last Admin: 08/14/18 10:46 Dose: 50 mcg Losartan Potassium (Cozaar) 100 mg PO DAILY [facility] Last Admin: 08/14/18 10:47 Dose: 100 mg Metoprolol Tartrate (Lopressor) 100 mg PO DAILY [facility] Last Admin: 08/14/18 10:46 Dose: 100 mg Polyethylene Glycol (Miralax) 17 gm PO DAILY [facility] Last Admin: 08/14/18 10:45 Dose: 17 gm - Labs Labs: 08/14/18 07:00 08/14/18 07:00 PT 10.6 SECONDS (9.4-12.5) 08/11/18 17:21 INR 0.93 08/11/18 17:21 APTT 29.0 Seconds (25.1-36.5) 08/11/18 17:21 Assessment and Plan - Assessment and Plan (Free Text) Plan: Infectious Diseases Attending Physician Attestation Patient seen and examined, discussed with medical records technician. I have reviewed the patient's history of present illness, past medical, family and social histories, personal history, physical exam, lab findings and imaging studies. I agree with the above findings, assessment and plan. In addition, will continue Vancoymcin and Cefepime day 3 for probable right lower extremity skin and skin structure infection with chronic leg wound. Follow up further plans of Podiatry. Should complete 7-10 days of therapy.
[2018-08-14 07:40] LABS: HEMOGLOBIN 11.8 g/dL (12.0-16.0); MEAN CELL VOLUME 91.2 fl (80.0-105.0); MEAN CORPUSCULAR HEMOGLOBIN 28.9 pg (25.0-35.0); MEAN CORPUSCULAR HGB CONC 31.7 g/dl (31.0-37.0); MEAN PLATELET VOLUME 8.2 fl (7.0-11.0); RBC 4.08 10^6/uL (3.5-6.1); RED CELL DISTRIBUTION WIDTH 13.8 % (11.5-14.5); WHITE BLOOD COUNT 10.4 10^3/uL (4.5-11.0)
[2018-08-14 07:56] LABS: ALB/GLOB RATIO 1.1 (1.1-1.8); ALBUMIN 3.3 g/dL (3.0-4.8); ALT/SGPT 27 U/L (7-56); AST/SGOT 29 U/L (14-36); BLOOD UREA NITROGEN 26 mg/dL (7-21); GFR NON-AFRICAN AMERICAN > 60
[2018-08-14] MEDS ORDERED: Prostat 15 g packet GT SCH (10:00)
[2018-08-14] MEDS: POLYETHYLENE GLYCOL 3350 17 GM/Dose PACKET PO SCH (10:45)
[2018-08-14] MEDS: Levothyroxine 50 MCG TAB PO SCH (10:46)
--- NOTE | 2018-08-14 11:35 | CP.PCM.PN ---
Subjective - Date & Time of Evaluation Date of Evaluation: 08/14/18 Time of Evaluation: 11:31 - Subjective Subjective: Podiatry progress note for Dr. Spear 82 yo female seen and evaluated at bedside with Dr. Spear resting comfortably. States she is in minimal pain on the right leg and no pain on the left. States that she feels like her legs are getting better since she was admitted. Denies any acute events overnight and has no other acute pedal complaints. Denies N/V/F/C/SOB/CP. Objective - Vital Signs/Intake and Output Vital Signs (last 24 hours): Temp Pulse Resp BP Pulse Ox 98.2 F 71 18 151/70 H 96 08/14/18 06:00 08/14/18 10:46 08/14/18 06:00 08/14/18 10:47 08/14/18 06:00 Intake and Output: 08/14/18 08/14/18 06:59 18:59 Intake Total 1020 Balance 1020 - Medications Medications: Current Medications Alprazolam (Xanax) 1 mg PO DAILY [facility]; Protocol Stop: 08/19/18 10:01 Last Admin: 08/14/18 10:46 Dose: 1 mg Amino Acid Protein (Prostat 15 G Packet) 15 gm GT BID [facility] Amlodipine Besylate (Norvasc) 2.5 mg PO DAILY [facility] Last Admin: 08/14/18 10:47 Dose: 2.5 mg Aspirin (Ecotrin) 81 mg PO DAILY [facility] Last Admin: 08/14/18 10:46 Dose: 81 mg Furosemide (Lasix) 20 mg IVP DAILY [facility] Last Admin: 08/14/18 10:46 Dose: 20 mg Gabapentin (Neurontin) 300 mg PO TID [facility]; Protocol Last Admin: 08/14/18 10:47 Dose: 300 mg Cefepime HCl (Maxipime 1gm) 1 gm in 100 mls @ 100 mls/hr IVPB Q8 [facility]; Protocol Last Admin: 08/14/18 06:05 Dose: 100 mls/hr Vancomycin HCl (Vancomycin 1gm) 1 gm in 250 mls @ 167 mls/hr IVPB Q12H [facility]; Protocol Levothyroxine Sodium (Synthroid) 50 mcg PO DAILY [facility] Last Admin: 08/14/18 10:46 Dose: 50 mcg Losartan Potassium (Cozaar) 100 mg PO DAILY [facility] Last Admin: 08/14/18 10:47 Dose: 100 mg Metoprolol Tartrate (Lopressor) 100 mg PO DAILY [facility] Last Admin: 08/14/18 10:46 Dose: 100 mg Polyethylene Glycol (Miralax) 17 gm PO DAILY [facility] Last Admin: 08/14/18 10:45 Dose: 17 gm - Labs Labs: 08/14/18 07:00 08/14/18 07:00 PT 10.6 SECONDS (9.4-12.5) 08/11/18 17:21 INR 0.93 08/11/18 17:21 APTT 29.0 Seconds (25.1-36.5) 08/11/18 17:21 - Constitutional Appears: Well, Non-toxic, No Acute Distress - Extremities Exam Additional comments: Vasc: DP and PT pulses palpable b/l, skin temp warm to cool from distal to proximal b/l; cap refill <3 seconds to all digits; mild nonpitting edema noted b/l Derm: right: there is a superficial laceration with intact sutures on the right lower leg adjacent to the calf; there is evidence of hematoma formation immediately distal to the laceration site that is no long fluctuant, laceration site has improved since admission, no signs of pus or purulent drainage; there is cellulitis present about the left lower leg - improving, from the knee distally to the ankle joint; there is evidence of soft tissue infection present but improvement appreciated left: there is evidence of a chronic wound that is stable and healed at the medial left ankle proximal to the malleolus, superficial blister present medially superior to the chronic stable wound NEURO: pedal sensation is grossly diminished b/l Ortho: no pain on palpation to the laceration site or anywhere about the lower legs; no other gross pathology noted - Neurological Exam Neurological Exam: Alert, Awake, Oriented x3 - Psychiatric Exam Psychiatric exam: Normal Affect, Normal Mood Assessment and Plan - Assessment and Plan (Free Text) Assessment: 82 yo patient with right leg cellulitis and hematoma formation s/p superficial laceration Plan: Patient seen and evaluated with Dr. Rainer ALCOCER, afebrile, absent leukocytosis Left leg wound culture final - staph epidermidis B/l legs cleansed with normal saline and dressed with xeroform, DSD, and PERRY Continue abx per ID Plan for TCU tomorrow, podiatry will continue to follow Podiatry will follow while in house
[2018-08-14] MEDS: Vancomycin 1gm in NS 250ml 1 GM/250 ML BAG IVPB SCH ×2 (12:30→21:07)
[2018-08-14 14:58] VITALS: RESP 20
--- NOTE | 2018-08-14 19:30 | DS ---
HOSPITAL COURSE: It is recommended by Physical Therapy to go to the TCU. She is still on IV antibiotics for cellulitis of the lower extremity. She is being seen by Infectious Disease and Podiatry. MEDICATIONS: She is on Cozaar, Ecotrin, Lasix, Lopressor, Maxipime, Neurontin, Norvasc, Pro-Stat, Synthroid and Xanax. PHYSICAL EXAMINATION: VITAL SIGNS: She has a 98.3 temperature, 69 pulse, 158/79 blood pressure, 18 respiratory rate, 95% O2 sat on room air. GENERAL: She is smiling this morning. She is eating her breakfast this morning. HEENT: Head is atraumatic, normocephalic. HEART: Regular rate with decreased breath sounds but clear. ABDOMEN: Soft, obese, nontender. Positive bowel sounds. No guarding, no rebound, no CVA tenderness. EXTREMITIES: Reddened and bandaged but less swollen with IV Lasix, I think has made a difference. LABORATORY DATA: She has a 139 sodium, potassium 3.8, BUN is 26, creatinine 0.8 better, GFR is greater than 60, sugar is 101, calcium is 9. Total bili is 0.3, AST is 29, ALT is 27, alk phos 71, total protein 6.4. White count is down to 10.4, best it has been; hemoglobin 11.8; hematocrit 37.2; platelets are 294,000. INR is 0.93. She is on IV antibiotics by Infectious Disease. Podiatry is seeing her. RECOMMENDATION: TCU for physical therapy before she would go home. There is no evidence of osteomyelitis. She had extremity ultrasounds. There was swelling when she came in, relatively normal and no sonographic, so that is good. PLAN: IV antibiotics, physical therapy, TCU before she goes home. Hopefully, we can do that today. Jesus Ann DO
[2018-08-15] MEDS: Cefepime 1gm in NS 100ml 1 GM/100 ML BAG IVPB SCH ×2 (06:31→13:57)
--- NOTE | 2018-08-15 06:35 | CP.PCM.PN ---
<Gabrielle Mcginnis - Last Filed: 08/15/18 11:43> Subjective - Date & Time of Evaluation Date of Evaluation: 08/15/18 Time of Evaluation: 07:00 - Subjective Subjective: Infectious Disease Progress Note for Camille Boykin PGY3 Patient seen and examined at bedside. Patient is afebrile and resting in bed. She reports her leg pain has improved. Objective - Vital Signs/Intake and Output Vital Signs (last 24 hours): Temp Pulse Resp BP Pulse Ox 97.7 F 78 20 155/72 H 96 08/14/18 23:21 08/14/18 23:21 08/14/18 23:21 08/14/18 23:21 08/14/18 23:21 Intake and Output: 08/14/18 08/15/18 18:59 06:59 Intake Total 180 Balance 180 - Medications Medications: Current Medications Alprazolam (Xanax) 1 mg PO DAILY [facility]; Protocol Stop: 08/19/18 10:01 Last Admin: 08/14/18 10:46 Dose: 1 mg Amino Acid Protein (Prostat 15 G Packet) 15 gm GT BID [facility] Amlodipine Besylate (Norvasc) 2.5 mg PO DAILY [facility] Last Admin: 08/14/18 10:47 Dose: 2.5 mg Aspirin (Ecotrin) 81 mg PO DAILY [facility] Last Admin: 08/14/18 10:46 Dose: 81 mg Furosemide (Lasix) 20 mg IVP DAILY [facility] Last Admin: 08/14/18 10:46 Dose: 20 mg Gabapentin (Neurontin) 300 mg PO TID [facility]; Protocol Last Admin: 08/14/18 17:43 Dose: 300 mg Cefepime HCl (Maxipime 1gm) 1 gm in 100 mls @ 100 mls/hr IVPB Q8 [facility]; Protocol Last Admin: 08/15/18 06:31 Dose: 100 mls/hr Vancomycin HCl (Vancomycin 1gm) 1 gm in 250 mls @ 167 mls/hr IVPB Q12H [facility]; Protocol Last Admin: 08/14/18 21:07 Dose: 167 mls/hr Levothyroxine Sodium (Synthroid) 50 mcg PO DAILY [facility] Last Admin: 08/14/18 10:46 Dose: 50 mcg Losartan Potassium (Cozaar) 100 mg PO DAILY [facility] Last Admin: 08/14/18 10:47 Dose: 100 mg Metoprolol Tartrate (Lopressor) 100 mg PO DAILY [facility] Last Admin: 08/14/18 10:46 Dose: 100 mg Polyethylene Glycol (Miralax) 17 gm PO DAILY [facility] Last Admin: 08/14/18 10:45 Dose: 17 gm - Labs Labs: 08/14/18 07:00 08/14/18 07:00 PT 10.6 SECONDS (9.4-12.5) 08/11/18 17:21 INR 0.93 08/11/18 17:21 APTT 29.0 Seconds (25.1-36.5) 08/11/18 17:21 - Constitutional Appears: No Acute Distress - Head Exam Head Exam: ATRAUMATIC, NORMAL INSPECTION, NORMOCEPHALIC - Eye Exam Eye Exam: Normal appearance, PERRL Pupil Exam: NORMAL ACCOMODATION, PERRL - ENT Exam ENT Exam: Mucous Membranes Moist - Respiratory Exam Respiratory Exam: Clear to Ausculation Bilateral, NORMAL BREATHING PATTERN. absent: Rales, Rhonchi, Wheezes - Cardiovascular Exam Cardiovascular Exam: REGULAR RHYTHM, +S1, +S2. absent: Gallop, Rubs, Murmur - GI/Abdominal Exam GI & Abdominal Exam: Soft, Normal Bowel Sounds. absent: Rigid, Tenderness, Mass, Rebound - Extremities Exam Extremities Exam: Pedal Edema. absent: Calf Tenderness Additional comments: R leg sutures in place- no drainage bilateral erythema of LE - Neurological Exam Neurological Exam: Alert, Awake, CN II-XII Intact, Oriented x3 - Psychiatric Exam Psychiatric exam: Normal Affect, Normal Mood - Skin Skin Exam: Dry, Warm Assessment and Plan - Assessment and Plan (Free Text) Assessment: 1. LE cellulitis - R LE purulent cellulitis. L LE nonpurulent cellulitis 2. Pedal edema 3. HTN 4. HLD 5. Hypothyroidism Plan: Wound cultures represent colonization. Will continue Cefepime and Vancomycin day #4 out of 7-10 days. Will obtain Vanc trough once transferred to TCU 1hr before dose. Will continue to monitor patient clinically. Plan is for patient to go to TCU. Case seen, discussed and reviewed with Dr. Keon Mcginnis PGY3 <Goyo Herbert - Last Filed: 08/15/18 12:50> Objective - Vital Signs/Intake and Output Vital Signs (last 24 hours): Temp Pulse Resp BP Pulse Ox 97.9 F 74 20 158/78 H 96 08/15/18 07:00 08/15/18 07:00 08/15/18 07:00 08/15/18 10:56 08/15/18 07:00 Intake and Output: 08/15/18 08/15/18 06:59 18:59 Intake Total 180 Balance 180 - Medications Medications: Current Medications Alprazolam (Xanax) 1 mg PO DAILY [facility]; Protocol Stop: 08/19/18 10:01 Last Admin: 08/15/18 10:55 Dose: 1 mg Amino Acid Protein (Prostat 15 G Packet) 15 gm GT BID [facility] Amlodipine Besylate (Norvasc) 2.5 mg PO DAILY [facility] Last Admin: 08/15/18 10:56 Dose: 2.5 mg Aspirin (Ecotrin) 81 mg PO DAILY [facility] Last Admin: 08/15/18 10:55 Dose: 81 mg Furosemide (Lasix) 20 mg IVP DAILY [facility] Last Admin: 08/15/18 10:56 Dose: 20 mg Gabapentin (Neurontin) 300 mg PO TID [facility]; Protocol Last Admin: 08/15/18 10:55 Dose: 300 mg Cefepime HCl (Maxipime 1gm) 1 gm in 100 mls @ 100 mls/hr IVPB Q8 [facility]; Protocol Last Admin: 08/15/18 06:31 Dose: 100 mls/hr Vancomycin HCl (Vancomycin 1gm) 1 gm in 250 mls @ 167 mls/hr IVPB Q12H [facility]; Protocol Last Admin: 08/15/18 10:54 Dose: 167 mls/hr Levothyroxine Sodium (Synthroid) 50 mcg PO DAILY [facility] Last Admin: 08/15/18 10:56 Dose: 50 mcg Losartan Potassium (Cozaar) 100 mg PO DAILY [facility] Last Admin: 08/15/18 10:55 Dose: 100 mg Metoprolol Tartrate (Lopressor) 100 mg PO DAILY [facility] Last Admin: 08/15/18 10:55 Dose: 100 mg Polyethylene Glycol (Miralax) 17 gm PO DAILY [facility] Last Admin: 08/15/18 10:55 Dose: 17 gm - Labs Labs: 08/14/18 07:00 08/14/18 07:00 PT 10.6 SECONDS (9.4-12.5) 08/11/18 17:21 INR 0.93 08/11/18 17:21 APTT 29.0 Seconds (25.1-36.5) 08/11/18 17:21 Assessment and Plan - Assessment and Plan (Free Text) Plan: Infectious Diseases Attending Physician Attestation Patient seen and examined, discussed with medical art therapist. I have reviewed the patient's history of present illness, past medical, family and social histories, personal history, physical exam, lab findings and imaging studies. I agree with the above findings, assessment and plan. In addition, will continue Vancoymcin and Cefepime day 4 for probable right lower extremity skin and skin structure infection with chronic leg wound. Follow up further plans of Podiatry. Should complete 7-10 days of therapy.
--- NOTE | 2018-08-15 09:35 | CP.PCM.PN ---
Subjective - Date & Time of Evaluation Date of Evaluation: 08/15/18 Time of Evaluation: 09:32 - Subjective Subjective: Podiatry progress note for Dr. Spear 82 yo female seen and evaluated at bedside with Dr. Spear resting comfortably. States she is in minimal pain on the right leg and no pain on the left. States that she feels like her legs are getting better since she was admitted. Denies any acute events overnight and has no other acute pedal complaints. Denies N/V/F/C/SOB/CP. Objective - Vital Signs/Intake and Output Vital Signs (last 24 hours): Temp Pulse Resp BP Pulse Ox 97.7 F 78 20 155/72 H 96 08/14/18 23:21 08/14/18 23:21 08/14/18 23:21 08/14/18 23:21 08/14/18 23:21 Intake and Output: 08/15/18 08/15/18 06:59 18:59 Intake Total 180 Balance 180 - Medications Medications: Current Medications Alprazolam (Xanax) 1 mg PO DAILY [facility]; Protocol Stop: 08/19/18 10:01 Last Admin: 08/14/18 10:46 Dose: 1 mg Amino Acid Protein (Prostat 15 G Packet) 15 gm GT BID [facility] Amlodipine Besylate (Norvasc) 2.5 mg PO DAILY [facility] Last Admin: 08/14/18 10:47 Dose: 2.5 mg Aspirin (Ecotrin) 81 mg PO DAILY [facility] Last Admin: 08/14/18 10:46 Dose: 81 mg Furosemide (Lasix) 20 mg IVP DAILY [facility] Last Admin: 08/14/18 10:46 Dose: 20 mg Gabapentin (Neurontin) 300 mg PO TID [facility]; Protocol Last Admin: 08/14/18 17:43 Dose: 300 mg Cefepime HCl (Maxipime 1gm) 1 gm in 100 mls @ 100 mls/hr IVPB Q8 [facility]; Protocol Last Admin: 08/15/18 06:31 Dose: 100 mls/hr Vancomycin HCl (Vancomycin 1gm) 1 gm in 250 mls @ 167 mls/hr IVPB Q12H [facility]; Protocol Last Admin: 08/14/18 21:07 Dose: 167 mls/hr Levothyroxine Sodium (Synthroid) 50 mcg PO DAILY [facility] Last Admin: 08/14/18 10:46 Dose: 50 mcg Losartan Potassium (Cozaar) 100 mg PO DAILY [facility] Last Admin: 08/14/18 10:47 Dose: 100 mg Metoprolol Tartrate (Lopressor) 100 mg PO DAILY [facility] Last Admin: 08/14/18 10:46 Dose: 100 mg Polyethylene Glycol (Miralax) 17 gm PO DAILY [facility] Last Admin: 08/14/18 10:45 Dose: 17 gm - Labs Labs: 08/14/18 07:00 08/14/18 07:00 PT 10.6 SECONDS (9.4-12.5) 08/11/18 17:21 INR 0.93 08/11/18 17:21 APTT 29.0 Seconds (25.1-36.5) 08/11/18 17:21 - Constitutional Appears: Well, Non-toxic, No Acute Distress - Extremities Exam Additional comments: Dressings left intact b/l Clean and dry No evidence of strikethrough or drainage - Psychiatric Exam Psychiatric exam: Normal Affect, Normal Mood Assessment and Plan - Assessment and Plan (Free Text) Assessment: 82 yo patient with right leg cellulitis and hematoma formation s/p superficial laceration Plan: Patient seen and evaluated with Dr. Rainer ALCOCER, afebrile, absent leukocytosis Left leg wound culture final - staph epidermidis B/l leg dressings left intact, to be changed QOD Continue abx per ID Plan for TCU today, podiatry will continue to follow Podiatry will follow while in house
[2018-08-15] MEDS: Vancomycin 1gm in NS 250ml 1 GM/250 ML BAG IVPB SCH (10:54)
[2018-08-15] MEDS: POLYETHYLENE GLYCOL 3350 17 GM/Dose PACKET PO SCH (10:55)
[2018-08-15] MEDS: Levothyroxine 50 MCG TAB PO SCH (10:56)
[2018-08-15 14:59] VITALS: BP 143/72; PULSE 68; TEMP 98.2; O2SAT 98
--- NOTE | 2018-08-15 19:02 | DS ---
She is resting comfortably in bed. She is going to go to the TCU today. She needs physical therapy, also more IV antibiotics over there too. MEDICATIONS: She is on Cozaar, Ecotrin, Lasix IV, metoprolol, cefepime, MiraLax, Neurontin, Norvasc, protein, Synthroid, vancomycin IV, and Xanax. PHYSICAL EXAMINATION: VITAL SIGNS: She has a 97.7 temperature, 78 pulse, 135/72 blood pressure, 20 respiratory rate, and 96% O2 sat on room air. HEENT: Head is atraumatic, normocephalic. HEART: Regular rate. LUNGS: Decreased breath sounds, but clear. ABDOMEN: Soft, nontender. Positive bowel sounds. EXTREMITIES: Wrapped up, and there is no edema being on Lasix, and the redness is improving. She is presently comfortable. She is happy she is going over to the TCU today. LABORATORY DATA: She has 10.4 white count, the best it has been; 11.8 hemoglobin; 37.2 hematocrit; 294 platelets. She has 139 sodium, potassium is 3.8, BUN is 26, creatinine 0.8, GFR is greater than 60, sugar is 101, calcium is 9, total bili is 0.3, AST is 29, ALT is 27, alk phos 71. She is being seen by Podiatry, Infectious Disease, and we will see her over there. Going to the TCU for physical therapy and IV antibiotics. Jesus Ann DO
== END 2018-08-15 16:19 | DRG 603 ==
LOC: ED 12:10 → ERH 17:26 → 5RSO 21:33 → ERH 21:52 → 5RSO 22:07 → OBSVTOIN 08-12 09:10 → 5RSO 08-12 21:14
PROVIDERS: ADMIT Family Medicine; ATTEND Family Medicine
DX: L03.115 Cellulitis of right lower limb (principal); L97.329 Non-pressure chronic ulcer of left ankle with unspecified severity; Z79.899 Other long term (current) drug therapy; S81.811A Laceration without foreign body, right lower leg, initial encounter; Z79.82 Long term (current) use of aspirin; L03.116 Cellulitis of left lower limb; E03.9 Hypothyroidism, unspecified; E78.00 Pure hypercholesterolemia, unspecified; E78.5 Hyperlipidemia, unspecified; F41.9 Anxiety disorder, unspecified; I11.0 Hypertensive heart disease with heart failure; I50.9 Heart failure, unspecified; D72.829 Elevated white blood cell count, unspecified; Z82.49 Family history of ischemic heart disease and other diseases of the circulatory system; M19.90 Unspecified osteoarthritis, unspecified site; R40.2412 Glasgow coma scale score 13-15, at arrival to emergency department

== ENCOUNTER 2018-08-15 16:19 | Inpatient (IN) | payer OTHER, MEDICAID ==
[2018-08-15 16:46] VITALS: BMI 33.5
[2018-08-15] MEDS: Prostat 15 g packet PO SCH (18:51)
[2018-08-15] MEDS ORDERED: Pneumococcal 23-Valent Vaccine IM ONE (20:43)
[2018-08-15] MEDS ORDERED: Influenza Vaccine 60 mcg/0.5 mL SYR (4YR UP) IM ONE (20:43)
[2018-08-15] MEDS: Cefepime 1gm in NS 100ml 1 GM/100 ML BAG IVPB SCH (21:23)
[2018-08-15] MEDS ORDERED: Cefepime (Maxipime) 1 g Inj IVPB SCH (22:00)
[2018-08-15] MEDS ORDERED: [UNRECOGNIZED DRUG - OTHER] IVPB SCH (22:00)
[2018-08-15] MEDS ORDERED: Vancomycin 1gm in NS 250ml 1 GM/250 ML BAG IVPB SCH (22:00)
[2018-08-15] MEDS ORDERED: VANCOMYCIN IVPB SCH (22:00)
[2018-08-15] MEDS ORDERED: NORMAL SALINE ADDVANTAGE IVPB SCH (22:00)
[2018-08-16] MEDS: Cefepime 1gm in NS 100ml 1 GM/100 ML BAG IVPB SCH ×3 (05:27→21:33)
[2018-08-16] MEDS: Levothyroxine 50 MCG TAB PO SCH (05:31)
[2018-08-16] MEDS: Vancomycin 1gm in NS 250ml 1 GM/250 ML BAG IVPB SCH ×2 (05:54→19:45)
[2018-08-16 07:04] LABS: BASO # 0.02 K/mm3 (0.0-2.0); BASO % 0.2 % (0.0-3.0); EOS # 0.2 (0.0-0.7); EOS % 1.7 % (1.5-5.0); GRAN # 8.59 (1.4-6.5); GRAN % 71.6 % (50.0-68.0); HEMOGLOBIN 11.3 g/dL (12.0-16.0); LYMPH # 2.5 (1.2-3.4); LYMPH % 21.2 % (22.0-35.0); MEAN CELL VOLUME 91.3 fl (80.0-105.0); MEAN CORPUSCULAR HEMOGLOBIN 28.8 pg (25.0-35.0); MEAN CORPUSCULAR HGB CONC 31.5 g/dl (31.0-37.0); MEAN PLATELET VOLUME 8.2 fl (7.0-11.0); MONO # 0.6 (0.1-0.6); MONO % 5.3 % (1.0-6.0); RBC 3.93 10^6/uL (3.5-6.1); RED CELL DISTRIBUTION WIDTH 13.8 % (11.5-14.5)
[2018-08-16 07:40] LABS: GFR NON-AFRICAN AMERICAN > 60
[2018-08-16 07:43] LABS: BLOOD UREA NITROGEN 21 mg/dL (7-21)
[2018-08-16] MEDS: POLYETHYLENE GLYCOL 3350 17 GM/Dose PACKET PO SCH (11:12)
[2018-08-16] MEDS: Prostat 15 g packet PO SCH ×2 (11:12→17:23)
--- NOTE | 2018-08-16 12:14 | CP.PCM.CON ---
History of Present Illness - History of Present Illness History of Present Illness: 82 year old female with PMH of HTN, hypothyroidism, chronic pedal edema, came in initially to [facility] because of chronic leg wound which also had a laceration and it was sutured on that admission. She was noted to have discharge from the wound and she was being treated with antibiotics with improvement. She is now transferred to [facility] for continued medical therapy and physical rehab. She states her right leg is a bit better, no nausea or vomiting, no fever or chills, no abdominal pain, no chest pain, no SOB, no headache or dizziness, no diarrhea, no dysuria. Infectious Diseases consult is requested to further evaluate and manage. Review of Systems - Review of Systems All systems: reviewed and no additional remarkable complaints except (as per HPI) Past Patient History - Infectious Disease Hx of Infectious Diseases: None - Past Social History Smoking Status: Never Smoked - CARDIAC Hx Hypertension: Yes - PULMONARY Hx Respiratory Disorders: No Hx Asthma: No Hx Bronchitis: No Hx Chronic Obstructive Pulmonary Disease (COPD): No Hx Emphysema: No Hx Pneumonia: No Hx Respiratory Aspiration: No Hx Respiratory Tract Infection: No Hx Sleep Apnea: No Hx Tuberculosis: No - NEUROLOGICAL Hx Neurological Disorder: No Hx Alzheimer's Disease: No HX Cerebrovascular Accident: No Hx Dementia: No Hx Dizziness: No Hx Meningitis: No Hx Migraine: No Hx Parkinson's Disease: No Hx Seizures: No Hx Transient Ischemic Attacks (TIA): No - HEENT Hx HEENT Problems: No Hx Blind: No Hx Cataracts: No Hx Deafness: No Hx Difficulty Chewing: No Hx Epistaxis: No Hx Glaucoma: No Hx Macular Degeneration: No - RENAL Hx Chronic Kidney Disease: No Hx Dialysis: No Hx Kidney Stones: No Hx Neurogenic Bladder: No Hx Pyelonephritis: No Hx Renal (Kidney) Cancer: No Hx Renal Failure: No - ENDOCRINE/METABOLIC Hx Endocrine Disorders: No Hx Adrenal Cancer: No Hx Diabetes Insipidus: No Hx Diabetes Mellitus Type 1: No Hx Diabetes Mellitus Type 2: No Hx Hyperthyroidism: No Hx Hypothyroidism: No Hx Systemic Lupus Erythematosus: No - HEMATOLOGICAL/ONCOLOGICAL Hx Blood Disorders: No Hx AIDS: No Hx Anemia: No Hx Cancer: No Hx Chemotherapy: No Hx Cirrhosis: No Hx Hemophilia: No Hx Hepatitis A: No Hx Hepatitis B: No Hx Hepatitis C: No Hx Human Immunodeficiency Virus (HIV): No Hx Metastesis: No Hx Shingles: No Hx Sickle Cell Disease: No Hx Unexplained Bleeding: No - INTEGUMENTARY Hx Dermatological Problems: No Hx Basil Cell: No Hx Eczema: No Hx Melanoma: No Hx Psoriasis: No Hx Squamous Cell: No - MUSCULOSKELETAL/RHEUMATOLOGICAL Hx Falls: No - GASTROINTESTINAL Hx Gastrointestinal Disorders: Yes (CONSTIPATION) - GENITOURINARY/GYNECOLOGICAL Hx Genitourinary Disorders: No Hx Reproductive Disorders: No - PSYCHIATRIC Hx Psychophysiologic Disorder: No Hx Anxiety: Yes Hx Bipolar Disorder: No Hx Emotional Abuse: No Hx Hallucinations: No Hx Panic Symptoms: No Hx Paranoia: No Hx Post Traumatic Stress Disorder: No Hx Psychosis: No Hx Physical Abuse: No Hx Schizophrenia: No Hx Sexual Abuse: No - SURGICAL HISTORY Hx Surgeries: No Hx Amputation: No Hx Appendectomy: No Hx Cardiac Catheterization: No Hx Cholecystectomy: No Hx Coronary Stent: No Hx Gastric Bypass Surgery: No Hx Hysterectomy: No Hx Joint Replacement: No Hx Kidney Transplant: No Hx Liver Transplant: No Hx Mastectomy: No Hx Musculoskeletal Surgery: No Hx Open Heart Surgery: No Hx Orthopedic Surgery: No Hx Splenectomy: No Hx Valve Replacement: No - ANESTHESIA Hx Anesthesia: No Meds Allergies/Adverse Reactions: Allergies Allergy/AdvReac Type Severity Reaction Status Date / Time No Known Allergies Allergy Verified 08/15/18 17:37 - Medications Medications: Current Medications Alprazolam (Xanax) 1 mg PO DAILY [facility]; Protocol Stop: 08/23/18 10:01 Amino Acid Protein (Prostat 15 G Packet) 15 gm PO BID [facility] Last Admin: 08/15/18 18:51 Dose: 15 gm Amlodipine Besylate (Norvasc) 2.5 mg PO DAILY [facility] Aspirin (Ecotrin) 81 mg PO 0800 [facility] Furosemide (Lasix) 20 mg IVP DAILY [facility] Gabapentin (Neurontin) 300 mg PO TID [facility]; Protocol Last Admin: 08/15/18 18:51 Dose: 300 mg Vancomycin HCl (Vancomycin 1gm) 1 gm in 250 mls @ 167 mls/hr IVPB Q12 [facility] Last Admin: 08/15/18 21:23 Dose: 167 mls/hr Cefepime HCl (Maxipime 1gm) 1 gm in 100 mls @ 100 mls/hr IVPB Q8 [facility] Last Admin: 08/15/18 21:23 Dose: 100 mls/hr Levothyroxine Sodium (Synthroid) 50 mcg PO 0630 [facility] Losartan Potassium (Cozaar) 100 mg PO DAILY [facility] Metoprolol Tartrate (Lopressor) 100 mg PO DAILY [facility] Polyethylene Glycol (Miralax) 17 gm PO DAILY [facility] Physical Exam - Constitutional Appears: No Acute Distress, Chronically Ill - Head Exam Head Exam: NORMAL INSPECTION - Neck Exam Neck exam: Negative for: Meningismus - Respiratory Exam Respiratory Exam: Decreased Breath Sounds - Cardiovascular Exam Cardiovascular Exam: +S1, +S2 - GI/Abdominal Exam GI & Abdominal Exam: Soft. absent: Tenderness - Extremities Exam Additional comments: right leg with dressings in place Results - Vital Signs Recent Vital Signs: Last Vital Signs Temp 98.1 F 08/15/18 20:20 Pulse 67 08/15/18 20:20 Resp 18 08/15/18 20:20 BP 168/83 H 08/15/18 20:20 Pulse Ox - Labs Result Diagrams: 08/16/18 06:00 08/16/18 06:00 Assessment & Plan - Assessment and Plan (Free Text) Plan: Assessment right lower extremity skin and skin structure infection with chronic leg wound HTN hypothyroidism chronic pedal edema Plan continue Vancoymcin and Cefepime day 5 to complete 7-10 days follow up further plans of Podiatry
--- NOTE | 2018-08-16 12:50 | CP.PCM.CON ---
History of Present Illness - History of Present Illness History of Present Illness: Podiatry consult note for Dr. Spear 82 yo female with pmhx of HTN, HLD, hypothyroidism, and chronic pedal edema seen and evaluated for right leg cellulitis and hematoma formation s/p superficial laceration. Patient was resing on the chair at the bedside comfortably and NAD. Patient ios AAO X 3. Patient was followed up by podiatry while in house before moving her to [facility]. She states that she is not having pain to her Lower extrem ities bilaterally. She denies any other pedal complaint at this time. She denies any overnight F/N/V/C or SOB. PMH: HTN, HLD, hypothyroidism, chronic pedal edema PSH: biopsy of left foot Allergies: NKDA Social Hx: Denies smoking, EtOH or illicit drug use Review of Systems - Review of Systems Review of Systems: As per HPI - Constitutional Constitutional: As Per HPI Past Patient History - Infectious Disease Hx of Infectious Diseases: None - Past Social History Smoking Status: Never Smoked - CARDIAC Hx Hypertension: Yes - PULMONARY Hx Respiratory Disorders: No Hx Asthma: No Hx Bronchitis: No Hx Chronic Obstructive Pulmonary Disease (COPD): No Hx Emphysema: No Hx Pneumonia: No Hx Respiratory Aspiration: No Hx Respiratory Tract Infection: No Hx Sleep Apnea: No Hx Tuberculosis: No - NEUROLOGICAL Hx Neurological Disorder: No Hx Alzheimer's Disease: No HX Cerebrovascular Accident: No Hx Dementia: No Hx Dizziness: No Hx Meningitis: No Hx Migraine: No Hx Parkinson's Disease: No Hx Seizures: No Hx Transient Ischemic Attacks (TIA): No - HEENT Hx HEENT Problems: No Hx Blind: No Hx Cataracts: No Hx Deafness: No Hx Difficulty Chewing: No Hx Epistaxis: No Hx Glaucoma: No Hx Macular Degeneration: No - RENAL Hx Chronic Kidney Disease: No Hx Dialysis: No Hx Kidney Stones: No Hx Neurogenic Bladder: No Hx Pyelonephritis: No Hx Renal (Kidney) Cancer: No Hx Renal Failure: No - ENDOCRINE/METABOLIC Hx Endocrine Disorders: No Hx Adrenal Cancer: No Hx Diabetes Insipidus: No Hx Diabetes Mellitus Type 1: No Hx Diabetes Mellitus Type 2: No Hx Hyperthyroidism: No Hx Hypothyroidism: No Hx Systemic Lupus Erythematosus: No - HEMATOLOGICAL/ONCOLOGICAL Hx Blood Disorders: No Hx AIDS: No Hx Anemia: No Hx Cancer: No Hx Chemotherapy: No Hx Cirrhosis: No Hx Hemophilia: No Hx Hepatitis A: No Hx Hepatitis B: No Hx Hepatitis C: No Hx Human Immunodeficiency Virus (HIV): No Hx Metastesis: No Hx Shingles: No Hx Sickle Cell Disease: No Hx Unexplained Bleeding: No - INTEGUMENTARY Hx Dermatological Problems: No Hx Basil Cell: No Hx Eczema: No Hx Melanoma: No Hx Psoriasis: No Hx Squamous Cell: No - MUSCULOSKELETAL/RHEUMATOLOGICAL Hx Falls: No - GASTROINTESTINAL Hx Gastrointestinal Disorders: Yes (CONSTIPATION) - GENITOURINARY/GYNECOLOGICAL Hx Genitourinary Disorders: No Hx Reproductive Disorders: No - PSYCHIATRIC Hx Psychophysiologic Disorder: No Hx Anxiety: Yes Hx Bipolar Disorder: No Hx Emotional Abuse: No Hx Hallucinations: No Hx Panic Symptoms: No Hx Paranoia: No Hx Post Traumatic Stress Disorder: No Hx Psychosis: No Hx Physical Abuse: No Hx Schizophrenia: No Hx Sexual Abuse: No - SURGICAL HISTORY Hx Surgeries: No Hx Amputation: No Hx Appendectomy: No Hx Cardiac Catheterization: No Hx Cholecystectomy: No Hx Coronary Stent: No Hx Gastric Bypass Surgery: No Hx Hysterectomy: No Hx Joint Replacement: No Hx Kidney Transplant: No Hx Liver Transplant: No Hx Mastectomy: No Hx Musculoskeletal Surgery: No Hx Open Heart Surgery: No Hx Orthopedic Surgery: No Hx Splenectomy: No Hx Valve Replacement: No - ANESTHESIA Hx Anesthesia: No Meds Allergies/Adverse Reactions: Allergies Allergy/AdvReac Type Severity Reaction Status Date / Time No Known Allergies Allergy Verified 08/15/18 17:37 - Medications Medications: Current Medications Alprazolam (Xanax) 1 mg PO DAILY [facility]; Protocol Stop: 08/23/18 10:01 Last Admin: 08/16/18 11:18 Dose: 1 mg Amino Acid Protein (Prostat 15 G Packet) 15 gm PO BID [facility] Last Admin: 08/16/18 11:12 Dose: 15 gm Amlodipine Besylate (Norvasc) 2.5 mg PO DAILY [facility] Last Admin: 08/16/18 11:12 Dose: 2.5 mg Aspirin (Ecotrin) 81 mg PO 0800 [facility] Last Admin: 08/16/18 08:54 Dose: 81 mg Furosemide (Lasix) 20 mg IVP DAILY [facility] Last Admin: 08/16/18 11:11 Dose: 20 mg Gabapentin (Neurontin) 300 mg PO TID [facility]; Protocol Last Admin: 08/16/18 11:11 Dose: 300 mg Cefepime HCl (Maxipime 1gm) 1 gm in 100 mls @ 100 mls/hr IVPB Q8 [facility] Last Admin: 08/16/18 05:27 Dose: 100 mls/hr Vancomycin HCl (Vancomycin 1gm) 1 gm in 250 mls @ 167 mls/hr IVPB 0600,1800 [facility]; Protocol Stop: 08/21/18 06:01 Last Admin: 08/16/18 05:54 Dose: 167 mls/hr Levothyroxine Sodium (Synthroid) 50 mcg PO 0630 [facility] Last Admin: 08/16/18 05:31 Dose: 50 mcg Losartan Potassium (Cozaar) 100 mg PO DAILY [facility] Last Admin: 08/16/18 11:11 Dose: 100 mg Metoprolol Tartrate (Lopressor) 100 mg PO DAILY [facility] Last Admin: 08/16/18 11:19 Dose: 100 mg Polyethylene Glycol (Miralax) 17 gm PO DAILY [facility] Last Admin: 08/16/18 11:12 Dose: Not Given Physical Exam - Constitutional Appears: Well, Non-toxic, No Acute Distress - Head Exam Head Exam: ATRAUMATIC, NORMOCEPHALIC - Extremities Exam Additional comments: Vasc: DP and PT pulses palpable b/l, skin temp warm to warm from distal to proximal on the right and wnl on the left; cap refill <3 seconds to all digits; mild edema noted b/l R>L Neuro: Protective sensation is grossly diminished b/l Derm: right: there is a superficial laceration with intact sutures on the right lower leg adjacent to the calf; there is evidence of hematoma formation immediately distal to the laceration site that is mildly fluctuant, no purulent drainage, No malodor; there is erythema present about the left lower leg, from the knee distally to the ankle joint; clinical signs of infection present left: Chronic wound that is stable and healed at the medial left ankle proximal to the malleolus, no other lesions present, Mild serous weeping from leg present MSK: No pain on palpation to the laceration site or anywhere about the lower legs; no other gross pathology noted. - Neurological Exam Neurological exam: Alert, Oriented x3 - Psychiatric Exam Psychiatric exam: Normal Affect, Normal Mood Results - Vital Signs Recent Vital Signs: Last Vital Signs Temp 97.5 F L 08/16/18 10:00 Pulse 72 08/16/18 11:19 Resp 20 11/10/18 10:00 BP 148/75 08/16/18 11:19 Pulse Ox 94 L 08/16/18 10:00 - Labs Result Diagrams: 08/16/18 06:00 08/16/18 06:00 Labs: Laboratory Results - last 24 hr 08/16/18 08/16/18 06:00 06:00 WBC 12.0 H RBC 3.93 Hgb 11.3 L Hct 35.9 L MCV 91.3 MCH 28.8 MCHC 31.5 RDW 13.8 Plt Count 303 MPV 8.2 Gran % 71.6 H Lymph % (Auto) 21.2 L [place] % (Auto) 5.3 Eos % (Auto) 1.7 Baso % (Auto) 0.2 Gran # 8.59 H Lymph # (Auto) 2.5 [place] # (Auto) 0.6 Eos # (Auto) 0.2 Baso # (Auto) 0.02 Sodium 137 Potassium 4.1 Chloride 104 Carbon Dioxide 30 Anion Gap 7 L BUN 21 Creatinine 0.8 Est GFR ( Amer) > 60 Est GFR (Non-Af Amer) > 60 Random Glucose 92 Calcium 9.0 Assessment & Plan - Assessment and Plan (Free Text) Assessment: 82 y/o female patient seen and evaluated for right leg cellulitis and hematoma formation s/p superficial laceration Plan: Patient seen and evaluated at the bedside Plan discussed with attending Dr. Spear Charts and labs reviewed: VSS, afebrile, WBCs 12.0 Left leg wound culture final - staph epidermidis B/l leg dressings applied using DSD, Xeroform and Kevin bandage. Eucerin cream applied, to be changed QOD Continue abx per ID Podiatry will continue to follow up the patient while in house Thank you for the consult - Date & Time Date: 08/16/18 Time: 12:50
--- NOTE | 2018-08-16 15:16 | HP ---
DATE OF EXAM: 08/16/2018 HISTORY OF PRESENT ILLNESS: She was on the hospital side. She came in with a bad cellulitis and laceration of the leg, now she is in the Transitional Care Unit for continued IV fluids and also physical therapy. 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 She was on IV antibiotics. She has had very bad cellulitis and isolation of the lower extremities. PAST MEDICAL HISTORY: She has a past medical history of high cholesterol, hypothyroidism, chronic pedal edema, a laceration repair. The internal combustion engineer saw her and sent her to the hospital and now she is here for care. FAMILY HISTORY: There is hypertension in the family. SOCIAL HISTORY: Nonsmoker. Nondrinker. No drugs. ALLERGIES: SHE HAS NO KNOWN DRUG ALLERGIES. MEDICATIONS: She is on Xanax, Ecotrin, vitamin D, Lasix, Neurontin, Synthroid, Lopressor, Bactroban cream, hydrochlorothiazide, losartan which was switched to Cozaar. She is also on Maxipime and vancomycin. REVIEW OF SYSTEMS: She has no acute vision or hearing changes. No sore throat. No neck pain or shortness of breath. No cough. No chest pain or palpitation. No abdominal pain, nausea, vomiting, constipation or diarrhea. She urinates okay. No back pain. There was laceration of the leg. There was swelling of the leg. There was redness of the leg. PHYSICAL EXAMINATION: VITAL SIGNS: Temperature 98.7, 73 pulse, 18 respiratory rate, 167/100 blood pressure and it is better now on new blood pressure pills is 140/80, 99% O2 sat on room air. GENERAL: She is a little bit anxious, well appearing, comfortable. She liked the room in the Transitional Care Unit a lot. Her is with her at this time. She is alert and oriented x3. HEENT: Head is atraumatic, normocephalic. Extraocular muscles are intact. Pupils are equal and reactive to light and accommodation. Throat is moist. NECK: Supple. HEART: Regular rate. LUNGS: Clear to auscultation. Normal S1, S2. No wheezes, rhonchi or rales. ABDOMEN: Soft, nontender. Positive bowel sounds. No guarding, no rebound, no CVA tenderness. EXTREMITIES: Have +1 now over four pitting edema, after diuresis, she came in +2 over 4. She was doing better that way. The redness is still persistent and they are both wrapped up. There are 2-cm triangle superficial ulcers and a 5-cm laceration on medial aspect of the right leg. It is less red, less inflamed. NEUROLOGIC: GCS is 15. Cranial nerves II-XII are grossly intact. Normal speech. Alert and oriented x3. LYMPHS: Thyroid midline. No palpable appreciable lymphadenopathy. LABORATORY DATA: She had some tests done already in the TCU. She has 137 sodium, potassium 4.1, BUN 29, creatinine 0.8, GFR is greater than 60, sugar is 92. Calcium is 9. White count is 12, hemoglobin is 11.3, hematocrit 35.9, platelets of 303,000. She is going to be seen by Podiatry, Infectious Disease. Continue with the IV antibiotics. We are going to check her labs tomorrow. Physical therapy, I am hoping she will improve quickly. She has another 6 days of antibiotics, most probably IV. She has got severe cellulitis of both lower extremities. Jesus Ann DO
[2018-08-17] MEDS: Cefepime 1gm in NS 100ml 1 GM/100 ML BAG IVPB SCH ×3 (05:44→21:46)
[2018-08-17] MEDS: Levothyroxine 50 MCG TAB PO SCH (05:45)
[2018-08-17] MEDS: Vancomycin 1gm in NS 250ml 1 GM/250 ML BAG IVPB SCH ×2 (06:51→17:39)
[2018-08-17 07:00] LABS: HEMOGLOBIN 11.1 g/dL (12.0-16.0); MEAN CELL VOLUME 91.4 fl (80.0-105.0); MEAN CORPUSCULAR HGB CONC 31.7 g/dl (31.0-37.0); MEAN PLATELET VOLUME 8.3 fl (7.0-11.0); RBC 3.83 10^6/uL (3.5-6.1); RED CELL DISTRIBUTION WIDTH 13.9 % (11.5-14.5); WHITE BLOOD COUNT 12.1 10^3/uL (4.5-11.0)
[2018-08-17 07:07] LABS: ALBUMIN 3.2 g/dL (3.0-4.8); ALT/SGPT 28 U/L (7-56); AST/SGOT 27 U/L (14-36); BLOOD UREA NITROGEN 19 mg/dL (7-21); CALCIUM 9.1 mg/dL (8.4-10.5); GFR NON-AFRICAN AMERICAN > 60
[2018-08-17] MEDS: POLYETHYLENE GLYCOL 3350 17 GM/Dose PACKET PO SCH (09:31)
[2018-08-17] MEDS: Prostat 15 g packet PO SCH ×2 (09:33→17:39)
--- NOTE | 2018-08-17 11:08 | CP.PCM.PN ---
Subjective - Date & Time of Evaluation Date of Evaluation: 08/17/18 Time of Evaluation: 11:00 - Subjective Subjective: Patient is resting comfortably on a chair, no fevers, not in distress. Objective - Vital Signs/Intake and Output Vital Signs (last 24 hours): Temp Pulse Resp BP Pulse Ox 97.5 F L 72 20 148/75 94 L 08/16/18 10:00 08/16/18 11:19 08/16/18 10:00 08/16/18 11:19 08/16/18 10:00 - Medications Medications: Current Medications Alprazolam (Xanax) 1 mg PO DAILY [facility]; Protocol Stop: 08/23/18 10:01 Last Admin: 08/16/18 11:18 Dose: 1 mg Amino Acid Protein (Prostat 15 G Packet) 15 gm PO BID [facility] Last Admin: 08/16/18 11:12 Dose: 15 gm Amlodipine Besylate (Norvasc) 2.5 mg PO DAILY [facility] Last Admin: 08/16/18 11:12 Dose: 2.5 mg Aspirin (Ecotrin) 81 mg PO 0800 [facility] Last Admin: 08/16/18 08:54 Dose: 81 mg Furosemide (Lasix) 20 mg IVP DAILY [facility] Last Admin: 08/16/18 11:11 Dose: 20 mg Gabapentin (Neurontin) 300 mg PO TID [facility]; Protocol Last Admin: 08/16/18 11:11 Dose: 300 mg Cefepime HCl (Maxipime 1gm) 1 gm in 100 mls @ 100 mls/hr IVPB Q8 [facility] Last Admin: 08/16/18 05:27 Dose: 100 mls/hr Vancomycin HCl (Vancomycin 1gm) 1 gm in 250 mls @ 167 mls/hr IVPB 0600,1800 [facility]; Protocol Stop: 08/18/18 19:30 Last Admin: 08/16/18 05:54 Dose: 167 mls/hr Levothyroxine Sodium (Synthroid) 50 mcg PO 0630 [facility] Last Admin: 08/16/18 05:31 Dose: 50 mcg Losartan Potassium (Cozaar) 100 mg PO DAILY [facility] Last Admin: 08/16/18 11:11 Dose: 100 mg Metoprolol Tartrate (Lopressor) 100 mg PO DAILY [facility] Last Admin: 08/16/18 11:19 Dose: 100 mg Polyethylene Glycol (Miralax) 17 gm PO DAILY [facility] Last Admin: 08/16/18 11:12 Dose: Not Given - Labs Labs: 08/16/18 06:00 08/16/18 06:00 - Constitutional Appears: Chronically Ill - Head Exam Head Exam: NORMAL INSPECTION - Respiratory Exam Respiratory Exam: Decreased Breath Sounds - Cardiovascular Exam Cardiovascular Exam: +S1, +S2 - GI/Abdominal Exam GI & Abdominal Exam: Soft. absent: Tenderness - Extremities Exam Additional comments: right leg with dressings in place Assessment and Plan - Assessment and Plan (Free Text) Plan: Assessment right lower extremity skin and skin structure infection with chronic leg wound HTN hypothyroidism chronic pedal edema Plan continue Vancoymcin and Cefepime day 6 to complete 7-10 days reviewed Podiatry recommendations
--- NOTE | 2018-08-17 12:06 | PN ---
DATE: 08/17/2018 SUBJECTIVE: She is sitting out of bed to chair. She is trying hard in physical therapy. She is getting antibiotics for the leg cellulitis of lower extremities. She tells me she is starting to do a little bit better. She is trying hard in therapy. She is eating well. She is out of bed to chair this morning. MEDICATIONS: She is on Cozaar, Ecotrin, Lasix IV, Lopressor, Maxipime IV, MiraLax, Neurontin, Norvasc, Pro-Stat, Synthroid, vancomycin IV and Xanax. PHYSICAL EXAMINATION: VITAL SIGNS: She has a 97.1 temperature, 78 pulse, 173/76 blood pressure, we will adjust the medication for blood pressure, 20 respiratory rate, 94% O2 sat on room air. HEENT: Head: Atraumatic, normocephalic. HEART: Regular rate. LUNGS: Decreased breath sounds, but clear. ABDOMEN: Soft, obese, nontender. Positive bowel sounds. EXTREMITIES: +1/4 pitting edema and wrapped up. LABORATORY DATA: She has a 12.1 white count, 11.1 hemoglobin, 35 hematocrit with 292 platelets. Sodium 139, potassium 4, BUN is 90, creatinine 0.7, GFR is greater than 60, sugar is 102, calcium 9.1, total bili is 0.4, AST is 27, ALT is 20, alkaline phosphatase 74, total protein 6.4. She is being seen by Infectious Disease and Podiatry. She will have labs tomorrow. Physical Therapy and I will adjust her blood pressure medication. I do think that she is starting to improve some. Antibiotics as per Infectious Disease. Continue with physical therapy. Adjust blood pressure today. Jesus Ann DO
[2018-08-18] MEDS: Cefepime 1gm in NS 100ml 1 GM/100 ML BAG IVPB SCH ×3 (05:15→21:17)
[2018-08-18] MEDS: Vancomycin 1gm in NS 250ml 1 GM/250 ML BAG IVPB SCH (05:53)
[2018-08-18] MEDS: Levothyroxine 50 MCG TAB PO SCH (05:54)
[2018-08-18 07:26] LABS: HEMOGLOBIN 11.1 g/dL (12.0-16.0); MEAN CELL VOLUME 91.1 fl (80.0-105.0); MEAN CORPUSCULAR HGB CONC 31.8 g/dl (31.0-37.0); MEAN PLATELET VOLUME 8.3 fl (7.0-11.0); RBC 3.83 10^6/uL (3.5-6.1); RED CELL DISTRIBUTION WIDTH 13.8 % (11.5-14.5); WHITE BLOOD COUNT 11.2 10^3/uL (4.5-11.0)
[2018-08-18 07:49] LABS: ALBUMIN 3.2 g/dL (3.0-4.8); BLOOD UREA NITROGEN 20 mg/dL (7-21); CALCIUM 8.8 mg/dL (8.4-10.5); GFR NON-AFRICAN AMERICAN > 60
[2018-08-18 07:55] LABS: ALT/SGPT 24 U/L (7-56); AST/SGOT 32 U/L (14-36)
--- NOTE | 2018-08-18 09:27 | PN ---
DATE: 08/18/2018 SUBJECTIVE: I saw her this morning in TCU in room 314. She is in good spirits this morning. MEDICATIONS: She is on Cozaar, Ecotrin, Lasix, Lopressor, Maxipime IV, MiraLax, Neurontin, Norvasc, Pro-Stat, Synthroid, vancomycin IV and Xanax. PHYSICAL EXAMINATION: VITAL SIGNS: She has a 98.4 temp, 67 pulse, 152/76 blood pressure, 20 respiratory rate, 95% O2 sat on room air. HEENT: Head is atraumatic, normocephalic. HEART: Regular rate. LUNGS: Decreased breath sounds, but clear. ABDOMEN: Soft, obese, nontender. EXTREMITIES: Both extremities are wrapped, but there is no edema. LABORATORY DATA: She has an 11.2 white count, came down a little bit; 11.1 hemoglobin; 34.9 hematocrit with 295 platelets. 138 sodium, potassium 4.1, BUN 20, creatinine 0.7; GFR is greater than 60, sugar is 97, calcium is 8.8, total bili is 0.5, AST is 32, ALT is 24, alk phos 66, total protein 6.5. ASSESSMENT AND PLAN: She is being seen by Infectious Disease. She is on IV antibiotics for a few more days 4-5 more days while she is here. Getting physical therapy before she goes home. She has a right lower extremity skin and skin structure infection with chronic leg wound. Vancomycin and cefepime. Continue aggressive treatment and care and physical therapy. We will check her labs tomorrow with the white count drops. Answered questions from the patient and also the . We will continue aggressive treatment and care. Jesus Ann DO [id number]
--- NOTE | 2018-08-18 10:25 | PN ---
DATE: 08/18/2018 SUBJECTIVE: This is an 82-year-old female seen in Transitional Care Unit for followup of a necrotic sutured site secondary to hematoma formation. Patient developed cellulitis and was sent in to the hospital for wound care, IV antibiotics and rest. Patient is seen at bedside. Dressing is clean, dry and intact. She has no new complaints. PHYSICAL EXAMINATION: VITAL SIGNS: Her vital signs are noted. Her temperature is 98.4, the blood pressure is 152/76, respirations are 20 and oxygen saturation is 95%. LABORATORY DATA: Patient's labs show a white blood cell count of 11.2, the H and H is 11.1 and 34.9 and the platelets are 295. Patient's chemistry was also reviewed. It is grossly within normal limits. Microbiology has not changed and she is on antibiotics as per Infectious Disease. Patient's legs were reviewed. The neurovascular status is unchanged. The sutures are still intact. The tissue in that sutured area is most likely devitalized although still there is some viable tissue. Thus we are leaving it in place. There are no signs of infection. There is no purulence. There is no fluctuance and the pain has decreased. The ecchymosis is also starting to decrease and the cellulitis is decreasing also. The left lower extremity has 2 small stasis ulcers at this time. No signs of infection. There is some redness from the PERRY bandages that she has been wearing and we are removing the PERRY bandages today and using TubiGrip instead to control the edema. ASSESSMENT: Hematoma with cellulitis and infection to the right lower extremity, stasis ulceration to the left lower extremity. PLAN OF TREATMENT: Local care, continue antibiotics as per Infectious Disease and the edema is going to be controlled using TubiGrips. Patient should have her legs elevated when sitting and physical therapy is encouraged. Estelita Spear DPM
[2018-08-18] MEDS: POLYETHYLENE GLYCOL 3350 17 GM/Dose PACKET PO SCH (12:15)
[2018-08-18] MEDS: Prostat 15 g packet PO SCH ×2 (12:25→18:37)
--- NOTE | 2018-08-18 12:28 | CP.PCM.PN ---
Subjective - Date & Time of Evaluation Date of Evaluation: 08/18/18 Time of Evaluation: 12:25 - Subjective Subjective: Podiatry progress note for Dr. Spear 82 yo female seen and evaluated at bedside with Dr. Spear, resting comfortably. Denies pain to lower legs. States nails are long and mildly painful. Denies N/V/F/C/SOB/CP and reports improvement while working with PT. Objective - Vital Signs/Intake and Output Vital Signs (last 24 hours): Temp Pulse Resp BP Pulse Ox 98.4 F 67 20 152/76 H 95 08/17/18 16:00 08/17/18 16:00 08/17/18 16:00 08/17/18 16:00 08/17/18 16:00 Intake and Output: 08/18/18 08/18/18 06:59 18:59 Intake Total 360 Balance 360 - Medications Medications: Current Medications Alprazolam (Xanax) 1 mg PO DAILY [facility]; Protocol Stop: 08/23/18 10:01 Amino Acid Protein (Prostat 15 G Packet) 15 gm PO BID [facility] Last Admin: 08/17/18 17:39 Dose: 15 gm Amlodipine Besylate (Norvasc) 5 mg PO DAILY [facility] Aspirin (Ecotrin) 81 mg PO 0800 [facility] Last Admin: 08/17/18 08:45 Dose: 81 mg Furosemide (Lasix) 20 mg IVP DAILY [facility] Last Admin: 08/17/18 09:31 Dose: 20 mg Gabapentin (Neurontin) 300 mg PO TID [facility]; Protocol Last Admin: 08/17/18 17:39 Dose: 300 mg Cefepime HCl (Maxipime 1gm) 1 gm in 100 mls @ 100 mls/hr IVPB Q8 [facility] Last Admin: 08/18/18 05:15 Dose: 100 mls/hr Vancomycin HCl (Vancomycin 1gm) 1 gm in 250 mls @ 167 mls/hr IVPB 0600,1800 [facility]; Protocol Stop: 08/21/18 06:01 Last Admin: 08/18/18 05:53 Dose: 167 mls/hr Levothyroxine Sodium (Synthroid) 50 mcg PO 0630 [facility] Last Admin: 08/18/18 05:54 Dose: 50 mcg Losartan Potassium (Cozaar) 100 mg PO DAILY [facility] Last Admin: 11/11/18 09:30 Dose: 100 mg Metoprolol Tartrate (Lopressor) 100 mg PO DAILY [facility] Last Admin: 08/17/18 09:31 Dose: 100 mg Polyethylene Glycol (Miralax) 17 gm PO DAILY [facility] Last Admin: 08/17/18 09:31 Dose: 17 gm - Labs Labs: 08/18/18 07:00 08/18/18 07:00 - Constitutional Appears: Well, Non-toxic, No Acute Distress - Head Exam Head Exam: ATRAUMATIC, NORMOCEPHALIC - Extremities Exam Additional comments: Vasc: DP and PT pulses palpable b/l, skin temp warm to warm from distal to proximal on the right and wnl on the left; cap refill <3 seconds to all digits; mild edema noted b/l R>L Neuro: Protective sensation is grossly diminished b/l Derm: right: there is a superficial laceration with intact sutures on the right lower leg adjacent to the calf; there is evidence of hematoma formation immediately distal to the laceration site that is mildly fluctuant, no purulent drainage, No malodor; there is erythema present about the left lower leg, from the knee distally to the ankle joint; clinical signs of infection present left: Chronic wound that is stable and healed at the medial left ankle proximal to the malleolus, no other lesions present, Mild serous weeping from leg present MSK: No pain on palpation to the laceration site or anywhere about the lower legs; no other gross pathology noted. - Neurological Exam Neurological Exam: Alert, Awake, Oriented x3 - Psychiatric Exam Psychiatric exam: Normal Affect, Normal Mood Assessment and Plan - Assessment and Plan (Free Text) Assessment: 82 y/o female patient seen and evaluated for right leg cellulitis and hematoma formation s/p superficial laceration Plan: Patient seen and evaluated at the bedside with Dr. Spear Charts and labs reviewed: VSS, afebrile, WBC 11.2 Left leg wound culture final - staph epidermidis B/l leg dressings applied using DSD, Xeroform and Kevin bandage. Eucerin cream applied, to be changed QOD All nails cut with nail nipper without incident Continue abx per ID Podiatry will continue to follow up the patient while in house
--- NOTE | 2018-08-18 16:10 | CP.PCM.PN ---
Subjective - Date & Time of Evaluation Date of Evaluation: 08/18/18 Time of Evaluation: 10:15 - Subjective Subjective: Comfortable in bed, no increased pain in the legs. Objective - Vital Signs/Intake and Output Vital Signs (last 24 hours): Temp Pulse Resp BP Pulse Ox 97.1 F L 78 20 173/76 H 94 L 08/17/18 10:00 08/17/18 10:00 08/17/18 10:00 08/17/18 10:00 08/17/18 10:00 - Medications Medications: Current Medications Alprazolam (Xanax) 1 mg PO DAILY [facility]; Protocol Stop: 08/23/18 10:01 Last Admin: 08/17/18 09:36 Dose: 1 mg Amino Acid Protein (Prostat 15 G Packet) 15 gm PO BID [facility] Last Admin: 08/17/18 09:33 Dose: 15 gm Amlodipine Besylate (Norvasc) 5 mg PO DAILY [facility] Aspirin (Ecotrin) 81 mg PO 0800 [facility] Last Admin: 08/17/18 08:45 Dose: 81 mg Furosemide (Lasix) 20 mg IVP DAILY [facility] Last Admin: 08/17/18 09:31 Dose: 20 mg Gabapentin (Neurontin) 300 mg PO TID [facility]; Protocol Last Admin: 08/17/18 09:31 Dose: 300 mg Cefepime HCl (Maxipime 1gm) 1 gm in 100 mls @ 100 mls/hr IVPB Q8 [facility] Last Admin: 08/17/18 05:44 Dose: 100 mls/hr Vancomycin HCl (Vancomycin 1gm) 1 gm in 250 mls @ 167 mls/hr IVPB 0600,1800 [facility]; Protocol Stop: 08/21/18 06:01 Last Admin: 08/17/18 06:51 Dose: 167 mls/hr Levothyroxine Sodium (Synthroid) 50 mcg PO 0630 [facility] Last Admin: 08/17/18 05:45 Dose: 50 mcg Losartan Potassium (Cozaar) 100 mg PO DAILY [facility] Last Admin: 08/17/18 09:30 Dose: 100 mg Metoprolol Tartrate (Lopressor) 100 mg PO DAILY [facility] Last Admin: 08/17/18 09:31 Dose: 100 mg Polyethylene Glycol (Miralax) 17 gm PO DAILY [facility] Last Admin: 08/17/18 09:31 Dose: 17 gm - Labs Labs: 08/17/18 06:00 08/17/18 06:00 - Constitutional Appears: Chronically Ill - Head Exam Head Exam: NORMAL INSPECTION - Respiratory Exam Respiratory Exam: Decreased Breath Sounds - Cardiovascular Exam Cardiovascular Exam: +S1, +S2 - GI/Abdominal Exam GI & Abdominal Exam: Soft. absent: Tenderness Assessment and Plan - Assessment and Plan (Free Text) Plan: Assessment right lower extremity skin and skin structure infection with chronic leg wound HTN hypothyroidism chronic pedal edema Plan continue Vancoymcin and Cefepime day 7 to complete 7-10 days reviewed Podiatry recommendations
[2018-08-18] MEDS ORDERED: Nystatin-Triamcinolone Cream(30 gm) TOP PRN (20:13)
[2018-08-19] MEDS: Levothyroxine 50 MCG TAB PO SCH (05:35)
[2018-08-19] MEDS: Cefepime 1gm in NS 100ml 1 GM/100 ML BAG IVPB SCH ×3 (05:36→21:29)
[2018-08-19 06:46] LABS: HEMOGLOBIN 10.8 g/dL (12.0-16.0); MEAN CELL VOLUME 90.7 fl (80.0-105.0); MEAN CORPUSCULAR HEMOGLOBIN 28.7 pg (25.0-35.0); MEAN CORPUSCULAR HGB CONC 31.7 g/dl (31.0-37.0); MEAN PLATELET VOLUME 8.1 fl (7.0-11.0); RBC 3.76 10^6/uL (3.5-6.1); RED CELL DISTRIBUTION WIDTH 13.7 % (11.5-14.5); WHITE BLOOD COUNT 11.1 10^3/uL (4.5-11.0)
--- NOTE | 2018-08-19 06:58 | CP.PCM.PN ---
<Gabrielle Mcginnis - Last Filed: 08/19/18 10:54> Subjective - Date & Time of Evaluation Date of Evaluation: 08/19/18 Time of Evaluation: 07:00 - Subjective Subjective: Infectious Disease Progress Note for Camille Boykin PGY3 Patient seen and examined at bedside. Patient resting comfortably in chair. Reports feeling well and is afebrile. Objective - Vital Signs/Intake and Output Vital Signs (last 24 hours): Temp Pulse Resp BP Pulse Ox 98.2 F 72 20 135/68 93 L 08/19/18 06:00 08/19/18 06:00 08/19/18 06:00 08/19/18 06:00 08/19/18 06:00 Intake and Output: 08/18/18 08/19/18 18:59 06:59 Intake Total 420 Output Total 350 Balance 70 - Medications Medications: Current Medications Alprazolam (Xanax) 1 mg PO DAILY [facility]; Protocol Stop: 08/23/18 10:01 Amino Acid Protein (Prostat 15 G Packet) 15 gm PO BID [facility] Last Admin: 08/18/18 18:37 Dose: Not Given Amlodipine Besylate (Norvasc) 5 mg PO DAILY [facility] Last Admin: 08/18/18 12:17 Dose: 5 mg Aspirin (Ecotrin) 81 mg PO 0800 [facility] Last Admin: 08/18/18 12:21 Dose: 81 mg Furosemide (Lasix) 20 mg IVP DAILY [facility] Last Admin: 08/18/18 12:16 Dose: 20 mg Gabapentin (Neurontin) 300 mg PO TID [facility]; Protocol Last Admin: 08/18/18 18:37 Dose: 300 mg Cefepime HCl (Maxipime 1gm) 1 gm in 100 mls @ 100 mls/hr IVPB Q8 [facility] Last Admin: 08/19/18 05:36 Dose: 100 mls/hr Vancomycin HCl (Vancomycin 1gm) 1 gm in 250 mls @ 167 mls/hr IVPB 0600,1800 [facility]; Protocol Stop: 08/21/18 06:01 Last Admin: 08/18/18 05:53 Dose: 167 mls/hr Levothyroxine Sodium (Synthroid) 50 mcg PO 0630 [facility] Last Admin: 08/19/18 05:35 Dose: 50 mcg Losartan Potassium (Cozaar) 100 mg PO DAILY [facility] Last Admin: 08/18/18 12:21 Dose: 100 mg Metoprolol Tartrate (Lopressor) 100 mg PO DAILY [facility] Last Admin: 08/18/18 12:12 Dose: 100 mg Nystatin/Triamcinolone Acetonide (Nystatin/Triamcinolone Cream) 0 ea TOP BID PRN PRN Reason: Rash Last Admin: 08/18/18 21:17 Dose: 1 applic Polyethylene Glycol (Miralax) 17 gm PO DAILY [facility] Last Admin: 08/18/18 12:15 Dose: 17 gm - Labs Labs: 08/19/18 06:00 08/18/18 07:00 - Constitutional Appears: No Acute Distress - Head Exam Head Exam: ATRAUMATIC, NORMAL INSPECTION, NORMOCEPHALIC - Eye Exam Eye Exam: Normal appearance, PERRL Pupil Exam: NORMAL ACCOMODATION, PERRL - ENT Exam ENT Exam: Mucous Membranes Moist - Respiratory Exam Respiratory Exam: Clear to Ausculation Bilateral, NORMAL BREATHING PATTERN. absent: Rales, Rhonchi, Wheezes - Cardiovascular Exam Cardiovascular Exam: REGULAR RHYTHM, +S1, +S2. absent: Gallop, Rubs, Murmur - GI/Abdominal Exam GI & Abdominal Exam: Soft, Normal Bowel Sounds. absent: Rigid, Tenderness, Mass, Rebound - Extremities Exam Extremities Exam: absent: Calf Tenderness Additional comments: bilateral LE dressing in place- clean and dry - Neurological Exam Neurological Exam: Alert, Awake, CN II-XII Intact, Oriented x3 - Psychiatric Exam Psychiatric exam: Normal Affect, Normal Mood - Skin Skin Exam: Dry, Warm Assessment and Plan - Assessment and Plan (Free Text) Assessment: 1. LE cellulitis - R LE purulent cellulitis. L LE nonpurulent cellulitis 2. Pedal edema 3. HTN 4. HLD 5. Hypothyroidism Plan: Today is day #8 of Cefepime and Vancomycin out of 7-10 days. Will d/c antibiotics tomorrow. Continue wound care and physical therapy. Will continue to monitor clinically. Case seen, discussed and reviewed with Dr. Keon Mcginnis PGY3 <Goyo Herbert - Last Filed: 08/19/18 19:42> Objective - Vital Signs/Intake and Output Vital Signs (last 24 hours): Temp Pulse Resp BP Pulse Ox 98 F 68 22 136/68 94 L 08/19/18 15:55 08/19/18 15:55 08/19/18 15:55 08/19/18 15:55 08/19/18 15:55 - Medications Medications: Current Medications Alprazolam (Xanax) 1 mg PO DAILY [facility]; Protocol Stop: 08/23/18 10:01 Last Admin: 08/19/18 10:23 Dose: 1 mg Amino Acid Protein (Prostat 15 G Packet) 15 gm PO BID [facility] Last Admin: 08/19/18 17:30 Dose: 15 gm Amlodipine Besylate (Norvasc) 5 mg PO DAILY [facility] Last Admin: 08/19/18 10:20 Dose: 5 mg Aspirin (Ecotrin) 81 mg PO 0800 [facility] Last Admin: 08/19/18 08:31 Dose: 81 mg Furosemide (Lasix) 20 mg IVP DAILY [facility] Last Admin: 08/19/18 10:19 Dose: 20 mg Gabapentin (Neurontin) 300 mg PO TID [facility]; Protocol Last Admin: 08/19/18 17:29 Dose: 300 mg Cefepime HCl (Maxipime 1gm) 1 gm in 100 mls @ 100 mls/hr IVPB Q8 [facility] Last Admin: 08/19/18 13:46 Dose: 100 mls/hr Levothyroxine Sodium (Synthroid) 50 mcg PO 0630 [facility] Last Admin: 08/19/18 05:35 Dose: 50 mcg Losartan Potassium (Cozaar) 100 mg PO DAILY [facility] Last Admin: 08/19/18 10:19 Dose: 100 mg Metoprolol Tartrate (Lopressor) 100 mg PO DAILY [facility] Last Admin: 08/19/18 10:20 Dose: 100 mg Nystatin (Nystop Topical Powder) 0 gm TOP BID [facility]; Protocol Last Admin: 08/19/18 17:29 Dose: 1 applic Polyethylene Glycol (Miralax) 17 gm PO DAILY [facility] Last Admin: 08/19/18 10:20 Dose: 17 gm - Labs Labs: 08/19/18 06:00 08/19/18 06:00 Assessment and Plan - Assessment and Plan (Free Text) Plan: Infectious Diseases Attending Physician Attestation Patient seen and examined, discussed with pediatrician/medical doctor. I have reviewed the patient's history of present illness, past medical, family and social histories, personal history, physical exam, lab findings and imaging studies. I agree with the above findings, assessment and plan. In addition, currently on Vancomycin and Cefepime for right lower extremity infected wound - may d/c antibiotics by tomorrow.
[2018-08-19 07:04] LABS: ALBUMIN 3.2 g/dL (3.0-4.8); ALT/SGPT 27 U/L (7-56); AST/SGOT 27 U/L (14-36); BLOOD UREA NITROGEN 21 mg/dL (7-21); CALCIUM 8.8 mg/dL (8.4-10.5); GFR NON-AFRICAN AMERICAN > 60
--- NOTE | 2018-08-19 09:37 | PN ---
DATE: 08/19/2018 SUBJECTIVE: I saw her in the Transitional Care Unit, sitting out of bed to chair, both the legs were wrapped. She is in good spirit. She is smiling. She is eating. She is trying the physical therapy. She is on IV antibiotics by Infectious Disease. MEDICATIONS: She is on Cozaar, Ecotrin, Lasix, Lopressor, Maxipime IV, MiraLAX, Neurontin, Norvasc, nystatin, Pro-Stat, Synthroid, vancomycin is on hold and Xanax. PHYSICAL EXAMINATION: GENERAL: She is smiling. She is trying in PT, better spirits. VITAL SIGNS: She has a 98.2 temperature, 72 pulse, 135/68 blood pressure, 20 respiratory rate, 93% O2 sat on room air. HEENT: Head is atraumatic, normocephalic. HEART: Regular rate. LUNGS: Decreased breath sounds. Poor inspiration, but clear to auscultation. ABDOMEN: Soft, obese, nontender. EXTREMITIES: Both extremities are wrapped by Podiatry, but they definitely are less swollen when she came in and when I could tell from the skin areas, they are less red. She is definitely improving. LABORATORY DATA: She has a 11.1 white count, 10.8 hemoglobin, 34.1 hematocrit with 293 platelets. She has 138 sodium, potassium 3.7, BUN 21, creatinine 0.8. GFR is greater than 60, sugar is 98, calcium is 8.8, total bili is 0.4, AST is 27, ALT is 27, alk phos 75, total protein 6.4. ASSESSMENT AND PLAN: She is being seen by Infectious Disease, Podiatry. She will continue to improve. She has a few more days of antibiotics and physical therapy in the TCU. I will continue aggressive treatment and care on the patient and check her labs tomorrow to see if they can get the white count under 11. Encouragement with PT, discussed with at length. Jesus Ann DO
[2018-08-19] MEDS: Prostat 15 g packet PO SCH ×2 (10:18→17:30)
[2018-08-19] MEDS: POLYETHYLENE GLYCOL 3350 17 GM/Dose PACKET PO SCH (10:20)
--- NOTE | 2018-08-19 11:23 | CP.PCM.PN ---
<Ankush Carroll - Last Filed: 08/19/18 11:19> Subjective - Date & Time of Evaluation Date of Evaluation: 08/19/18 Time of Evaluation: 11:20 - Subjective Subjective: Podiatry progress note for Dr. Melendrez 82 yo female seen and evaluated at bedside. Resting comfortably. Denies pain to lower legs and seen wearing stockings and dressing clean and intact. Denies N/V/F/C/SOB/CP and has no other pedal complaints today. Objective - Vital Signs/Intake and Output Vital Signs (last 24 hours): Temp Pulse Resp BP Pulse Ox 98.2 F 80 20 150/67 93 L 08/19/18 06:00 08/19/18 10:20 08/19/18 06:00 08/19/18 10:20 08/19/18 06:00 Intake and Output: 08/19/18 08/19/18 06:59 18:59 Intake Total 420 Output Total 350 Balance 70 - Medications Medications: Current Medications Alprazolam (Xanax) 1 mg PO DAILY [facility]; Protocol Stop: 08/23/18 10:01 Last Admin: 08/19/18 10:23 Dose: 1 mg Amino Acid Protein (Prostat 15 G Packet) 15 gm PO BID [facility] Last Admin: 08/19/18 10:18 Dose: 15 gm Amlodipine Besylate (Norvasc) 5 mg PO DAILY [facility] Last Admin: 08/19/18 10:20 Dose: 5 mg Aspirin (Ecotrin) 81 mg PO 0800 [facility] Last Admin: 08/19/18 08:31 Dose: 81 mg Furosemide (Lasix) 20 mg IVP DAILY [facility] Last Admin: 08/19/18 10:19 Dose: 20 mg Gabapentin (Neurontin) 300 mg PO TID [facility]; Protocol Last Admin: 08/19/18 10:20 Dose: 300 mg Cefepime HCl (Maxipime 1gm) 1 gm in 100 mls @ 100 mls/hr IVPB Q8 [facility] Last Admin: 08/19/18 05:36 Dose: 100 mls/hr Vancomycin HCl (Vancomycin 1gm) 1 gm in 250 mls @ 167 mls/hr IVPB 0600,1800 [facility]; Protocol Stop: 08/21/18 06:01 Last Admin: 08/18/18 05:53 Dose: 167 mls/hr Levothyroxine Sodium (Synthroid) 50 mcg PO 0630 [facility] Last Admin: 08/19/18 05:35 Dose: 50 mcg Losartan Potassium (Cozaar) 100 mg PO DAILY [facility] Last Admin: 08/19/18 10:19 Dose: 100 mg Metoprolol Tartrate (Lopressor) 100 mg PO DAILY [facility] Last Admin: 08/19/18 10:20 Dose: 100 mg Nystatin/Triamcinolone Acetonide (Nystatin/Triamcinolone Cream) 0 ea TOP BID PRN PRN Reason: Rash Last Admin: 08/18/18 21:17 Dose: 1 applic Polyethylene Glycol (Miralax) 17 gm PO DAILY [facility] Last Admin: 08/19/18 10:20 Dose: 17 gm - Labs Labs: 08/19/18 06:00 08/19/18 06:00 - Constitutional Appears: Well, Non-toxic, No Acute Distress - Head Exam Head Exam: ATRAUMATIC, NORMOCEPHALIC - Extremities Exam Additional comments: Vasc: DP and PT pulses palpable b/l, skin temp warm to warm from distal to proximal on the right and wnl on the left; cap refill <3 seconds to all digits; mild edema noted b/l R>L Neuro: Protective sensation is grossly diminished b/l Derm: right: there is a superficial laceration with intact sutures on the right lower leg adjacent to the calf; there is evidence of hematoma formation immediately distal to the laceration site, no purulent drainage, No malodor; there is erythema present about the left lower leg, from the knee distally to the ankle joint - resolving since admission left: Chronic wound that is stable and healed at the medial left ankle proximal to the malleolus, no other lesions present, Mild serous weeping from leg present MSK: No pain on palpation to the laceration site or anywhere about the lower legs; no other gross pathology noted. - Neurological Exam Neurological Exam: Alert, Awake, Oriented x3 - Psychiatric Exam Psychiatric exam: Normal Affect, Normal Mood Assessment and Plan - Assessment and Plan (Free Text) Assessment: 82 y/o female patient seen and evaluated for right leg cellulitis and hematoma formation s/p superficial laceration Plan: Patient seen and evaluated at the bedside with Dr. Spear Charts and labs reviewed: VSS, afebrile, WBC 11.1 Left leg wound culture final - staph epidermidis Legs cleansed with sterile saline and lotion applied. Dressed with optifoam dressing b/l Continue abx per ID Podiatry will continue to follow up the patient while in house <Dom Melendrez - Last Filed: 08/20/18 09:41> Objective - Vital Signs/Intake and Output Vital Signs (last 24 hours): Temp Pulse Resp BP Pulse Ox 97.9 F 69 18 145/69 97 08/20/18 05:56 08/20/18 05:56 08/20/18 05:56 08/20/18 05:56 08/20/18 05:56 - Medications Medications: Current Medications Alprazolam (Xanax) 1 mg PO DAILY [facility]; Protocol Stop: 08/23/18 10:01 Last Admin: 08/19/18 10:23 Dose: 1 mg Amino Acid Protein (Prostat 15 G Packet) 15 gm PO BID [facility] Last Admin: 08/19/18 17:30 Dose: 15 gm Amlodipine Besylate (Norvasc) 5 mg PO DAILY [facility] Last Admin: 08/19/18 10:20 Dose: 5 mg Aspirin (Ecotrin) 81 mg PO 0800 [facility] Last Admin: 08/20/18 07:58 Dose: 81 mg Furosemide (Lasix) 20 mg IVP DAILY [facility] Last Admin: 08/19/18 10:19 Dose: 20 mg Gabapentin (Neurontin) 300 mg PO TID [facility]; Protocol Last Admin: 08/19/18 17:29 Dose: 300 mg Levothyroxine Sodium (Synthroid) 50 mcg PO 0630 [facility] Last Admin: 08/20/18 05:29 Dose: 50 mcg Losartan Potassium (Cozaar) 100 mg PO DAILY [facility] Last Admin: 08/19/18 10:19 Dose: 100 mg Metoprolol Tartrate (Lopressor) 100 mg PO DAILY [facility] Last Admin: 08/19/18 10:20 Dose: 100 mg Nystatin (Nystop Topical Powder) 0 gm TOP BID [facility]; Protocol Last Admin: 08/19/18 17:29 Dose: 1 applic Polyethylene Glycol (Miralax) 17 gm PO DAILY [facility] Last Admin: 08/19/18 10:20 Dose: 17 gm - Labs Labs: 08/20/18 06:00 08/20/18 06:00 Attending/Attestation - Attestation I have personally seen and examined this patient.: Yes I have fully participated in the care of the patient.: Yes I have reviewed all pertinent clinical information, including history, physical exam and plan: Yes
[2018-08-19] MEDS: Nystatin 100,000 Units/gm Topical Pow(15 gm) TOP SCH (17:29)
[2018-08-19] MEDS: Vancomycin 1gm in NS 250ml 1 GM/250 ML BAG IVPB SCH (19:45)
[2018-08-20] MEDS: Levothyroxine 50 MCG TAB PO SCH (05:29)
[2018-08-20] MEDS: Cefepime 1gm in NS 100ml 1 GM/100 ML BAG IVPB SCH (05:29)
[2018-08-20 06:27] LABS: MEAN CORPUSCULAR HEMOGLOBIN 29.1 pg (25.0-35.0); MEAN PLATELET VOLUME 8.2 fl (7.0-11.0); RBC 3.78 10^6/uL (3.5-6.1); RED CELL DISTRIBUTION WIDTH 13.7 % (11.5-14.5); WHITE BLOOD COUNT 10.6 10^3/uL (4.5-11.0)
--- NOTE | 2018-08-20 06:57 | CP.PCM.PN ---
<Gabrielle Mcginnis - Last Filed: 08/20/18 10:32> Subjective - Date & Time of Evaluation Date of Evaluation: 08/20/18 Time of Evaluation: 07:00 - Subjective Subjective: Infectious Disease Progress Note for Camille Boykin PGY3 Patient seen and examined at bedside. She is afebrile and has no complaints today. She feels well and is in good spirits. Objective - Vital Signs/Intake and Output Vital Signs (last 24 hours): Temp Pulse Resp BP Pulse Ox 97.9 F 69 18 145/69 97 08/20/18 05:56 08/20/18 05:56 08/20/18 05:56 08/20/18 05:56 08/20/18 05:56 - Medications Medications: Current Medications Alprazolam (Xanax) 1 mg PO DAILY [facility]; Protocol Stop: 08/23/18 10:01 Last Admin: 08/19/18 10:23 Dose: 1 mg Amino Acid Protein (Prostat 15 G Packet) 15 gm PO BID [facility] Last Admin: 08/19/18 17:30 Dose: 15 gm Amlodipine Besylate (Norvasc) 5 mg PO DAILY [facility] Last Admin: 08/19/18 10:20 Dose: 5 mg Aspirin (Ecotrin) 81 mg PO 0800 [facility] Last Admin: 08/19/18 08:31 Dose: 81 mg Furosemide (Lasix) 20 mg IVP DAILY [facility] Last Admin: 08/19/18 10:19 Dose: 20 mg Gabapentin (Neurontin) 300 mg PO TID [facility]; Protocol Last Admin: 08/19/18 17:29 Dose: 300 mg Cefepime HCl (Maxipime 1gm) 1 gm in 100 mls @ 100 mls/hr IVPB Q8 [facility] Last Admin: 08/20/18 05:29 Dose: 100 mls/hr Levothyroxine Sodium (Synthroid) 50 mcg PO 0630 [facility] Last Admin: 08/20/18 05:29 Dose: 50 mcg Losartan Potassium (Cozaar) 100 mg PO DAILY [facility] Last Admin: 08/19/18 10:19 Dose: 100 mg Metoprolol Tartrate (Lopressor) 100 mg PO DAILY [facility] Last Admin: 08/19/18 10:20 Dose: 100 mg Nystatin (Nystop Topical Powder) 0 gm TOP BID [facility]; Protocol Last Admin: 08/19/18 17:29 Dose: 1 applic Polyethylene Glycol (Miralax) 17 gm PO DAILY [facility] Last Admin: 08/19/18 10:20 Dose: 17 gm - Labs Labs: 08/20/18 06:00 08/19/18 06:00 - Constitutional Appears: No Acute Distress - Head Exam Head Exam: ATRAUMATIC, NORMAL INSPECTION, NORMOCEPHALIC - Eye Exam Eye Exam: Normal appearance, PERRL Pupil Exam: NORMAL ACCOMODATION, PERRL - ENT Exam ENT Exam: Mucous Membranes Moist - Neck Exam Neck Exam: Normal Inspection - Respiratory Exam Respiratory Exam: Clear to Ausculation Bilateral, NORMAL BREATHING PATTERN. absent: Rales, Rhonchi, Wheezes - Cardiovascular Exam Cardiovascular Exam: REGULAR RHYTHM, +S1, +S2. absent: Gallop, Rubs, Murmur - GI/Abdominal Exam GI & Abdominal Exam: Soft, Normal Bowel Sounds. absent: Rigid, Tenderness, Mass, Rebound - Extremities Exam Extremities Exam: absent: Calf Tenderness, Pedal Edema Additional comments: bilateral LE dressing in place- clean and dry - Neurological Exam Neurological Exam: Alert, Awake, CN II-XII Intact, Oriented x3 - Psychiatric Exam Psychiatric exam: Normal Affect, Normal Mood - Skin Skin Exam: Dry, Warm Assessment and Plan - Assessment and Plan (Free Text) Assessment: 1. LE cellulitis - R LE purulent cellulitis. L LE nonpurulent cellulitis 2. Pedal edema 3. HTN 4. HLD 5. Hypothyroidism Plan: Patient completed course of Cefepime and Vancomycin. She is off of antibiotics. She is at risk for nosocomial infections. Will continue to monitor clinically. Case seen, discussed and reviewed with Dr. Keon Mcgninis PGY3 <Goyo Herbert - Last Filed: 08/20/18 17:38> Objective - Vital Signs/Intake and Output Vital Signs (last 24 hours): Temp Pulse Resp BP Pulse Ox 97.4 F L 62 18 140/74 96 08/20/18 16:00 08/20/18 16:00 08/20/18 16:00 08/20/18 16:00 08/20/18 16:00 - Medications Medications: Current Medications Alprazolam (Xanax) 1 mg PO DAILY [facility]; Protocol Stop: 08/23/18 10:01 Last Admin: 08/20/18 10:47 Dose: 1 mg Amino Acid Protein (Prostat 15 G Packet) 15 gm PO BID [facility] Last Admin: 08/20/18 17:34 Dose: 15 gm Amlodipine Besylate (Norvasc) 5 mg PO DAILY [facility] Last Admin: 08/20/18 10:45 Dose: 5 mg Aspirin (Ecotrin) 81 mg PO 0800 [facility] Last Admin: 08/20/18 07:58 Dose: 81 mg Furosemide (Lasix) 20 mg IVP DAILY [facility] Last Admin: 08/20/18 10:43 Dose: 20 mg Gabapentin (Neurontin) 300 mg PO TID [facility]; Protocol Last Admin: 08/20/18 17:34 Dose: 300 mg Levothyroxine Sodium (Synthroid) 50 mcg PO 0630 [facility] Last Admin: 08/20/18 05:29 Dose: 50 mcg Losartan Potassium (Cozaar) 100 mg PO DAILY [facility] Last Admin: 08/20/18 10:43 Dose: 100 mg Metoprolol Tartrate (Lopressor) 100 mg PO DAILY [facility] Last Admin: 08/20/18 10:44 Dose: 100 mg Nystatin (Nystop Topical Powder) 0 gm TOP BID [facility]; Protocol Last Admin: 08/20/18 17:34 Dose: 1 applic Polyethylene Glycol (Miralax) 17 gm PO DAILY [facility] Last Admin: 08/20/18 10:44 Dose: 17 gm - Labs Labs: 08/20/18 06:00 08/20/18 06:00 Assessment and Plan - Assessment and Plan (Free Text) Plan: Infectious Diseases Attending Physician Attestation Patient seen and examined, discussed with medical chemist. I have reviewed the patient's history of present illness, past medical, family and social histories, personal history, physical exam, lab findings and imaging studies. I agree with the above findings, assessment and plan. In addition, patient has completed therapy for right lower extremity cellulitis. Will continue to monitor clinically.
[2018-08-20 07:11] LABS: ALBUMIN 3.3 g/dL (3.0-4.8); ALT/SGPT 22 U/L (7-56); AST/SGOT 28 U/L (14-36); BLOOD UREA NITROGEN 24 mg/dL (7-21); GFR NON-AFRICAN AMERICAN 60
--- NOTE | 2018-08-20 10:00 | PN ---
DATE: 08/20/2018 SUBJECTIVE: She is resting comfortably in her room in the TCU. She is walking better. The bilateral leg cellulitis is definitely improving. The edema from the CHF is definitely improving. She is feeling better. She is eating better. She is walking better. She is on Cozaar, Ecotrin, Lasix, Lopressor, Maxipime, MiraLax, Neurontin, Norvasc, nystatin, Synthroid and Xanax. PHYSICAL EXAMINATION: VITAL SIGNS: She has a 97.9 temperature, 69 pulse, 145/69 blood pressure, 18 respiratory rate, 97% sat on room air. HEENT: Head is atraumatic, normocephalic. HEART: Regular rate. LUNGS: Clear to auscultation. ABDOMEN: Soft, obese, nontender. EXTREMITIES: May be +1/4 pitting edema when she came in, was very swollen, +4, she diuresed very well. LABORATORY DATA: She has a 10.6 white count the best it has been, 11 hemoglobin, 34.4 hematocrit with 308,000 platelets. Sodium 139, potassium 3.9, BUN 24, creatinine 0.9, GFR is greater than 60, sugar is 94, calcium is 9, total bili is 0.4, AST is 20, ALT is 22, alk phos 85, total protein 6.5. Overall she is improving. She will be here until Saturday in physical therapy, improving in strength and her balance. We will continue with aggressive treatment and care. We will check her labs tomorrow. She is definitely improving. IV antibiotics as per Infectious Disease few more days and I discussed this with her . Jesus Ann DO [facility]
[2018-08-20] MEDS: POLYETHYLENE GLYCOL 3350 17 GM/Dose PACKET PO SCH (10:44)
[2018-08-20] MEDS: Prostat 15 g packet PO SCH ×2 (10:45→17:34)
[2018-08-20] MEDS: Nystatin 100,000 Units/gm Topical Pow(15 gm) TOP SCH ×2 (10:45→17:34)
--- NOTE | 2018-08-20 15:11 | PCM.FALL ---
<Tony Barreto - Last Filed: 08/20/18 15:12> Post Fall Progress Note - Post Fall Fall Date: 08/20/18 Fall Time: 11:52 Description of Fall: Resident corporate receptionist note Code star for patient fall called at 11:52 AM Patient was discovered on bathroom floor by nurse. Initial vital signs: T 97.9, HR 58, RR 18, BP 136/71, sat 94% RA Patient states she fell asleep on the toilet seat after going to the bathroom, woke up disoriented, and lost her balance when trying to get up from the toilet seat. She denies any head trauma or loss of consciousness, stating she landed on her L side and using the walker in the bathroom to break her fall. No head lacerations or abrasions were noted, no contusions. No focal neurological deficits on physical exam. Patient was alert and oriented x3, in good spirits after the fall. She denies any dizziness or lightheadedness prior to the incident. No urinary incontinence, convulsions, tongue biting noted. - Post Fall Exam Vital Sign: Temp Pulse Resp BP Pulse Ox 97.9 F 58 L 18 136/71 94 L 08/20/18 12:00 08/20/18 12:00 08/20/18 12:00 08/20/18 12:00 08/20/18 12:00 Skull Exam: Negative for: Scalp wound, Scalp hematoma, Scalp depression Eye Exam: Positive for: Pupils equal, Pupils reactive Ear Exam: Negative for: Bleeding Nose Exam: Negative for: Bleeding Skin Exam: Positive for: Bruising (chronic b/l UE). Negative for: Lacerations Mouth Exam: Negative for: Tongue bitten, Teeth dislodge Neck Exam: Negative for: Tenderness, Tingling, Weakness Spinal Exam: Negative for: Tenderness, Tingling, Weakness Chest Exam: Negative for: Difficulty breathing, Tenderness in collar bones, Tenderness in ribs Abdomen Exam: Negative for: Tenderness Arm Exam: Negative for: Deformity, Alteration in range of movement Leg Exam: Negative for: Deformity, Alteration in range of movement Impression/Plan: -continue to monitor for any acute neurological changes -pt encouraged to call nurse for assistance when needed <Rich Bush - Last Filed: 08/25/18 14:38> Post Fall Progress Note - Post Fall Exam Vital Sign: Temp Pulse Resp BP Pulse Ox 97.5 F L 78 20 155/70 H 96 08/22/18 16:00 08/23/18 14:34 08/22/18 16:00 08/23/18 09:00 08/23/18 14:34 Attending/Attestation - Attestation I have personally seen and examined this patient.: No I have fully participated in the care of the patient.: No I have reviewed all pertinent clinical information, including history, physical exam and plan: No
--- NOTE | 2018-08-20 15:59 | CP.PCM.PN ---
Subjective - Date & Time of Evaluation Date of Evaluation: 08/20/18 Time of Evaluation: 15:55 - Subjective Subjective: Podiatry progress note for Dr. Spear 82 yo female seen and evaluated at bedside with Dr. Spear. Seen resting comfortably. States she fell today in the bathroom after PT but sustained no injuries. A code was called for her but she was helped up and put in her chair without incident. She denies N/V/F/C/SOB today. Objective - Vital Signs/Intake and Output Vital Signs (last 24 hours): Temp Pulse Resp BP Pulse Ox 97.9 F 58 L 18 136/71 94 L 08/20/18 12:00 08/20/18 12:00 08/20/18 12:00 08/20/18 12:00 08/20/18 12:00 - Medications Medications: Current Medications Alprazolam (Xanax) 1 mg PO DAILY [facility]; Protocol Stop: 08/23/18 10:01 Last Admin: 08/20/18 10:47 Dose: 1 mg Amino Acid Protein (Prostat 15 G Packet) 15 gm PO BID [facility] Last Admin: 08/20/18 10:45 Dose: 15 gm Amlodipine Besylate (Norvasc) 5 mg PO DAILY [facility] Last Admin: 08/20/18 10:45 Dose: 5 mg Aspirin (Ecotrin) 81 mg PO 0800 [facility] Last Admin: 08/20/18 07:58 Dose: 81 mg Furosemide (Lasix) 20 mg IVP DAILY [facility] Last Admin: 08/20/18 10:43 Dose: 20 mg Gabapentin (Neurontin) 300 mg PO TID [facility]; Protocol Last Admin: 08/20/18 13:54 Dose: 300 mg Levothyroxine Sodium (Synthroid) 50 mcg PO 0630 [facility] Last Admin: 08/20/18 05:29 Dose: 50 mcg Losartan Potassium (Cozaar) 100 mg PO DAILY [facility] Last Admin: 08/20/18 10:43 Dose: 100 mg Metoprolol Tartrate (Lopressor) 100 mg PO DAILY [facility] Last Admin: 08/20/18 10:44 Dose: 100 mg Nystatin (Nystop Topical Powder) 0 gm TOP BID [facility]; Protocol Last Admin: 08/20/18 10:45 Dose: 1 applic Polyethylene Glycol (Miralax) 17 gm PO DAILY [facility] Last Admin: 08/20/18 10:44 Dose: 17 gm - Labs Labs: 08/20/18 06:00 08/20/18 06:00 - Constitutional Appears: Well, Non-toxic, No Acute Distress - Extremities Exam Additional comments: Vasc: DP and PT pulses palpable b/l, skin temp warm to warm from distal to p roximal on the right and wnl on the left; cap refill <3 seconds to all digits; mild edema noted b/l R>L Neuro: Protective sensation is grossly diminished b/l Derm: right: there is a superficial laceration with intact sutures on the right lower leg adjacent to the calf; there is evidence of hematoma formation immediately distal to the laceration site, no purulent drainage, No malodor; there is erythema present about the left lower leg, from the knee distally to the ankle joint - resolving since admission left: Chronic wound that is stable and healed at the medial left ankle proximal to the malleolus, no other lesions present, Mild serous weeping from leg present MSK: No pain on palpation to the laceration site or anywhere about the lower legs; no other gross pathology noted. Assessment and Plan - Assessment and Plan (Free Text) Assessment: 82 y/o female patient seen and evaluated for right leg cellulitis and hematoma formation s/p superficial laceration Plan: Patient seen and evaluated at the bedside with Dr. Spear Charts and labs reviewed: VSS, afebrile, absent leukocytosis Left leg wound culture final - staph epidermidis Legs cleansed with sterile saline and lotion applied. Suture/hematoma site dressed with nystatin cream, adaptic, 4x4 and optifoam Continue abx per ID Podiatry will continue to follow up the patient while in house
[2018-08-21] MEDS: Levothyroxine 50 MCG TAB PO SCH (05:47)
[2018-08-21 06:39] LABS: HEMOGLOBIN 10.6 g/dL (12.0-16.0); MEAN CORPUSCULAR HEMOGLOBIN 28.9 pg (25.0-35.0); MEAN CORPUSCULAR HGB CONC 31.7 g/dl (31.0-37.0); MEAN PLATELET VOLUME 8.2 fl (7.0-11.0); RBC 3.67 10^6/uL (3.5-6.1); RED CELL DISTRIBUTION WIDTH 13.6 % (11.5-14.5)
[2018-08-21 07:19] LABS: ALBUMIN 3.2 g/dL (3.0-4.8); ALT/SGPT 22 U/L (7-56); AST/SGOT 28 U/L (14-36); BLOOD UREA NITROGEN 27 mg/dL (7-21); CALCIUM 8.9 mg/dL (8.4-10.5); GFR NON-AFRICAN AMERICAN 60
--- NOTE | 2018-08-21 08:01 | PN ---
DATE: 08/21/2018 SUBJECTIVE: She is in the TCU. She told me that she fell on the bathroom because her leg got caught on a leg of a walker, but she had no sequela, no pain. She needed help to get up, but she did well and she now could stand up and lie down without any pain and she is smiling. She is eating and she is doing well with therapy. MEDICATIONS: She is on Cozaar, Ecotrin, Lasix, Lopressor, MiraLax, Neurontin, Norvasc, nystatin powder, Pro-Stat, Synthroid, Xanax. PHYSICAL EXAMINATION: VITAL SIGNS: She has a 97.4 temp, 62 pulse, 140/74 blood pressure, 18 respiratory rate, 96% O2 sat on room air. HEENT: Head is atraumatic, normocephalic. HEART: Regular rate. LUNGS: Clear to auscultation. ABDOMEN: Soft, obese, nontender. EXTREMITIES: Trace edema. They are wrapped up. They are doing much better. She is here for bilateral cellulitis, weakness, CHF. She is definitely improved greatly. LABORATORY DATA: She has 11 white count, 10.6 hemoglobin, 33.4 hematocrit with 317 platelets. 138 sodium, potassium 3.9, BUN is 27, creatinine 0.9, GFR is greater than 60, sugar is 93, calcium is 8.9, total bili is 0.3, AST is 28, ALT is 22, alk phos 78, total protein is 6.3. ASSESSMENT AND PLAN: She will have a few more days of therapy. On Saturday, she will go home. She has been seen by Podiatry, Infectious Disease and hopefully she will continue to improve. Hopefully, she will not fall anymore. She understands . We will check her labs tomorrow. Jesus Ann DO MTDD
[2018-08-21] MEDS: POLYETHYLENE GLYCOL 3350 17 GM/Dose PACKET PO SCH (10:19)
[2018-08-21] MEDS: Nystatin 100,000 Units/gm Topical Pow(15 gm) TOP SCH ×2 (10:20→17:26)
[2018-08-21] MEDS: Prostat 15 g packet PO SCH ×2 (10:20→17:26)
--- NOTE | 2018-08-21 11:00 | CP.PCM.PN ---
Subjective - Date & Time of Evaluation Date of Evaluation: 08/21/18 Time of Evaluation: 10:52 - Subjective Subjective: Podiatry progress note for Dr. Spear 82 yo female seen and evaluated at bedside with Dr. Spear. Seen resting comfortably. She denies N/V/F/C/SOB today. States she is being discharged on Saturday. Objective - Vital Signs/Intake and Output Vital Signs (last 24 hours): Temp Pulse Resp BP Pulse Ox 97.4 F L 75 18 159/75 H 96 08/20/18 16:00 08/21/18 10:19 08/20/18 16:00 08/21/18 10:19 08/20/18 16:00 Intake and Output: 08/21/18 08/21/18 06:59 18:59 Intake Total 420 Output Total 600 Balance -180 - Medications Medications: Current Medications Alprazolam (Xanax) 1 mg PO DAILY [facility]; Protocol Stop: 08/23/18 10:01 Last Admin: 08/21/18 10:21 Dose: 1 mg Amino Acid Protein (Prostat 15 G Packet) 15 gm PO BID [facility] Last Admin: 08/21/18 10:20 Dose: 15 gm Amlodipine Besylate (Norvasc) 5 mg PO DAILY [facility] Last Admin: 08/21/18 10:19 Dose: 5 mg Aspirin (Ecotrin) 81 mg PO 0800 [facility] Last Admin: 08/21/18 08:24 Dose: 81 mg Furosemide (Lasix) 20 mg IVP DAILY [facility] Last Admin: 08/21/18 10:19 Dose: 20 mg Gabapentin (Neurontin) 300 mg PO TID [facility]; Protocol Last Admin: 08/21/18 10:19 Dose: 300 mg Levothyroxine Sodium (Synthroid) 50 mcg PO 0630 [facility] Last Admin: 08/21/18 05:47 Dose: 50 mcg Losartan Potassium (Cozaar) 100 mg PO DAILY [facility] Last Admin: 08/21/18 10:18 Dose: 100 mg Metoprolol Tartrate (Lopressor) 100 mg PO DAILY [facility] Last Admin: 08/21/18 10:19 Dose: 100 mg Nystatin (Nystop Topical Powder) 0 gm TOP BID [facility]; Protocol Last Admin: 08/21/18 10:20 Dose: 1 applic Polyethylene Glycol (Miralax) 17 gm PO DAILY [facility] Last Admin: 08/21/18 10:19 Dose: 17 gm - Labs Labs: 08/21/18 06:00 08/21/18 06:00 - Constitutional Appears: Well, Non-toxic, No Acute Distress - Head Exam Head Exam: ATRAUMATIC, NORMOCEPHALIC - Extremities Exam Additional comments: Vasc: DP and PT pulses palpable b/l, skin temp warm to warm from distal to proximal on the right and wnl on the left; cap refill <3 seconds to all digits; mild edema noted b/l R>L Neuro: Protective sensation is grossly diminished b/l Derm: right: there is a superficial laceration with intact sutures on the right lower leg adjacent to the calf; there is evidence of hematoma formation immediately distal to the laceration site, no purulent drainage, No malodor; there is erythema present about the left lower leg, from the knee distally to the ankle joint - resolving since admission left: Chronic wound that is stable and healed at the medial left ankle proximal to the malleolus, no other lesions present, Mild serous weeping from leg present MSK: No pain on palpation to the laceration site or anywhere about the lower legs; no other gross pathology noted. - Neurological Exam Neurological Exam: Alert, Awake, Oriented x3 - Psychiatric Exam Psychiatric exam: Normal Affect, Normal Mood Assessment and Plan - Assessment and Plan (Free Text) Assessment: 82 y/o female with right leg cellulitis and hematoma formation s/p superficial laceration Plan: Patient seen and evaluated at the bedside with Dr. Spear Charts and labs reviewed: VSS, afebrile, absent leukocytosis Left leg wound culture final - staph epidermidis Legs cleansed with sterile saline and lotion applied. Suture/hematoma site dressed with nystatin cream, adaptic, 4x4 and optifoam Continue abx per ID Wound care order for visiting nurse: - Clean right leg with normal sterile saline and apply silvercell NONSTICK and optifoam on top MWF - Left leg clean with normal sterile saline and apply silvercell and optifoam MWF - Tubigrip on b/l legs Podiatry will continue to follow up the patient while in house
[2018-08-21 16:42] VITALS: RESP 20
--- NOTE | 2018-08-21 19:42 | PN ---
DATE: 08/21/2018 SUBJECTIVE: The patient is in bed, in no acute distress, nontoxic. PHYSICAL EXAMINATION VITAL SIGNS: Temperature is 98, blood pressure 112/70, respiratory rate of 16. HEENT: Unremarkable. NECK: Supple. LUNGS: Decreased breath sounds. HEART: Normal S1 and S2. ABDOMEN: Soft. LABORATORY EXAMINATION: Reveals a white count of 11,000. Chemistries are reviewed. Microbiology is noted. In acute care, the patient's right leg had Staph epidermidis, left leg had Pseudomonas and coag-negative Staph. ASSESSMENT AND PLAN: This is an 82-year-old female with right lower extremity cellulitis. Currently off of antibiotics. Afebrile. Normal white count. Dr. Jesus Ann's note is reviewed. The patient had completed a course of vancomycin and cefepime, now off of antibiotics. We will follow with you. Timmy Ulloa MD
[2018-08-22] MEDS: Levothyroxine 50 MCG TAB PO SCH (05:39)
[2018-08-22 06:17] LABS: HEMOGLOBIN 11.3 g/dL (12.0-16.0); MEAN CELL VOLUME 90.6 fl (80.0-105.0); MEAN CORPUSCULAR HEMOGLOBIN 28.8 pg (25.0-35.0); MEAN CORPUSCULAR HGB CONC 31.7 g/dl (31.0-37.0); RBC 3.93 10^6/uL (3.5-6.1); RED CELL DISTRIBUTION WIDTH 13.5 % (11.5-14.5); WHITE BLOOD COUNT 11.2 10^3/uL (4.5-11.0)
--- NOTE | 2018-08-22 06:35 | CP.PCM.PN ---
<Gabrielle Mcginnis - Last Filed: 08/22/18 11:08> Subjective - Date & Time of Evaluation Date of Evaluation: 08/22/18 Time of Evaluation: 07:00 - Subjective Subjective: Infectious Disease Progress Note for Camille Boykin PGY3 Patient seen and examined at bedside. Patient resting in chair without any complaints. She is afebrile. Objective - Vital Signs/Intake and Output Vital Signs (last 24 hours): Temp Pulse Resp BP Pulse Ox 97.2 F L 68 20 153/82 H 96 08/21/18 16:00 08/21/18 16:00 08/21/18 16:00 08/21/18 16:00 08/21/18 16:00 Intake and Output: 08/21/18 08/22/18 18:59 06:59 Intake Total 380 Output Total 600 Balance -220 - Medications Medications: Current Medications Alprazolam (Xanax) 1 mg PO DAILY [facility]; Protocol Stop: 08/23/18 10:01 Last Admin: 08/21/18 10:21 Dose: 1 mg Amino Acid Protein (Prostat 15 G Packet) 15 gm PO BID [facility] Last Admin: 08/21/18 17:26 Dose: 15 gm Amlodipine Besylate (Norvasc) 5 mg PO DAILY [facility] Last Admin: 08/21/18 10:19 Dose: 5 mg Aspirin (Ecotrin) 81 mg PO 0800 [facility] Last Admin: 08/21/18 08:24 Dose: 81 mg Furosemide (Lasix) 20 mg IVP DAILY [facility] Last Admin: 08/21/18 10:19 Dose: 20 mg Gabapentin (Neurontin) 300 mg PO TID [facility]; Protocol Last Admin: 08/21/18 17:26 Dose: 300 mg Levothyroxine Sodium (Synthroid) 50 mcg PO 0630 [facility] Last Admin: 08/22/18 05:39 Dose: 50 mcg Losartan Potassium (Cozaar) 100 mg PO DAILY [facility] Last Admin: 08/21/18 10:18 Dose: 100 mg Metoprolol Tartrate (Lopressor) 100 mg PO DAILY [facility] Last Admin: 08/21/18 10:19 Dose: 100 mg Nystatin (Nystop Topical Powder) 0 gm TOP BID [facility]; Protocol Last Admin: 08/21/18 17:26 Dose: 1 applic Polyethylene Glycol (Miralax) 17 gm PO DAILY [facility] Last Admin: 08/21/18 10:19 Dose: 17 gm - Labs Labs: 08/22/18 06:11 08/21/18 06:00 - Constitutional Appears: No Acute Distress - Head Exam Head Exam: ATRAUMATIC, NORMAL INSPECTION, NORMOCEPHALIC - Eye Exam Eye Exam: Normal appearance, PERRL Pupil Exam: NORMAL ACCOMODATION, PERRL - ENT Exam ENT Exam: Mucous Membranes Moist - Respiratory Exam Respiratory Exam: Clear to Ausculation Bilateral, NORMAL BREATHING PATTERN. absent: Rales, Rhonchi, Wheezes - Cardiovascular Exam Cardiovascular Exam: REGULAR RHYTHM, +S1, +S2. absent: Gallop, Murmur - GI/Abdominal Exam GI & Abdominal Exam: Soft, Normal Bowel Sounds. absent: Rigid, Tenderness, Mass, Rebound - Extremities Exam Extremities Exam: Pedal Edema. absent: Calf Tenderness Additional comments: Bilateral LE dressing in place- clean and dry - Neurological Exam Neurological Exam: Alert, Awake, CN II-XII Intact, Oriented x3 - Psychiatric Exam Psychiatric exam: Normal Affect, Normal Mood - Skin Skin Exam: Dry, Warm Assessment and Plan - Assessment and Plan (Free Text) Assessment: 1. LE cellulitis - R LE purulent cellulitis. L LE nonpurulent cellulitis 2. Pedal edema 3. HTN 4. HLD 5. Hypothyroidism Plan: Finished course of Cefepime and Vancomycin. She remains off of antibiotics. She is at risk for nosocomial infections. Will continue to monitor clinically. Case seen, discussed and reviewed with Dr. Keon Mcginnis PGY3 <Goyo Herbert - Last Filed: 08/22/18 19:59> Objective - Vital Signs/Intake and Output Vital Signs (last 24 hours): Temp Pulse Resp BP Pulse Ox 97.5 F L 79 20 119/70 95 08/22/18 16:00 08/22/18 16:06 08/22/18 16:00 08/22/18 16:00 08/22/18 16:06 - Medications Medications: Current Medications Alprazolam (Xanax) 1 mg PO DAILY [facility]; Protocol Stop: 08/23/18 10:01 Last Admin: 08/22/18 11:05 Dose: 1 mg Amino Acid Protein (Prostat 15 G Packet) 15 gm PO BID [facility] Last Admin: 08/21/18 17:26 Dose: 15 gm Amlodipine Besylate (Norvasc) 5 mg PO DAILY [facility] Last Admin: 08/22/18 10:59 Dose: 5 mg Aspirin (Ecotrin) 81 mg PO 0800 [facility] Last Admin: 08/22/18 08:30 Dose: 81 mg Furosemide (Lasix) 20 mg IVP DAILY [facility] Last Admin: 08/22/18 11:32 Dose: 20 mg Gabapentin (Neurontin) 300 mg PO TID [facility]; Protocol Last Admin: 08/22/18 18:07 Dose: 300 mg Levothyroxine Sodium (Synthroid) 50 mcg PO 0630 [facility] Last Admin: 08/22/18 05:39 Dose: 50 mcg Losartan Potassium (Cozaar) 100 mg PO DAILY [facility] Last Admin: 08/22/18 10:57 Dose: 100 mg Metoprolol Tartrate (Lopressor) 100 mg PO DAILY [facility] Last Admin: 08/22/18 10:58 Dose: 100 mg Nystatin (Nystop Topical Powder) 0 gm TOP BID [facility]; Protocol Last Admin: 08/22/18 18:07 Dose: 1 applic Polyethylene Glycol (Miralax) 17 gm PO DAILY [facility] Last Admin: 08/22/18 10:59 Dose: Not Given - Labs Labs: 08/22/18 06:11 08/22/18 06:11 Assessment and Plan - Assessment and Plan (Free Text) Plan: Infectious Diseases Attending Physician Attestation Patient seen and examined, discussed with medical billing and coding specialist. I have reviewed the patient's history of present illness, past medical, family and social histories, personal history, physical exam, lab findings and imaging studies. I agree with the above findings, assessment and plan. In addition, patient has completed therapy for right lower extremity cellulitis. Will continue to monitor clinically off antibiotics.
[2018-08-22 08:13] LABS: ALBUMIN 3.4 g/dL (3.0-4.8); ALT/SGPT 21 U/L (7-56); AST/SGOT 29 U/L (14-36); BLOOD UREA NITROGEN 28 mg/dL (7-21); CALCIUM 9.2 mg/dL (8.4-10.5); GFR NON-AFRICAN AMERICAN 53
--- NOTE | 2018-08-22 09:29 | CP.PCM.PN ---
Subjective - Date & Time of Evaluation Date of Evaluation: 08/22/18 Time of Evaluation: 09:26 - Subjective Subjective: Podiatry progress note for Dr. Melendrez 82 yo female seen and evaluated at bedside. Seen resting comfortably. She denies N/V/F/C/SOB today. States she is being discharged on Saturday. Objective - Vital Signs/Intake and Output Vital Signs (last 24 hours): Temp Pulse Resp BP Pulse Ox 97.2 F L 68 20 153/82 H 96 08/21/18 16:00 08/21/18 16:00 08/21/18 16:00 08/21/18 16:00 08/21/18 16:00 Intake and Output: 08/22/18 08/22/18 06:59 18:59 Intake Total 380 Output Total 600 Balance -220 - Medications Medications: Current Medications Alprazolam (Xanax) 1 mg PO DAILY [facility]; Protocol Stop: 08/23/18 10:01 Last Admin: 08/21/18 10:21 Dose: 1 mg Amino Acid Protein (Prostat 15 G Packet) 15 gm PO BID [facility] Last Admin: 08/21/18 17:26 Dose: 15 gm Amlodipine Besylate (Norvasc) 5 mg PO DAILY [facility] Last Admin: 08/21/18 10:19 Dose: 5 mg Aspirin (Ecotrin) 81 mg PO 0800 [facility] Last Admin: 08/22/18 08:30 Dose: 81 mg Furosemide (Lasix) 20 mg IVP DAILY [facility] Last Admin: 08/21/18 10:19 Dose: 20 mg Gabapentin (Neurontin) 300 mg PO TID [facility]; Protocol Last Admin: 08/21/18 17:26 Dose: 300 mg Levothyroxine Sodium (Synthroid) 50 mcg PO 0630 [facility] Last Admin: 08/22/18 05:39 Dose: 50 mcg Losartan Potassium (Cozaar) 100 mg PO DAILY [facility] Last Admin: 08/21/18 10:18 Dose: 100 mg Metoprolol Tartrate (Lopressor) 100 mg PO DAILY [facility] Last Admin: 08/21/18 10:19 Dose: 100 mg Nystatin (Nystop Topical Powder) 0 gm TOP BID [facility]; Protocol Last Admin: 08/21/18 17:26 Dose: 1 applic Polyethylene Glycol (Miralax) 17 gm PO DAILY [facility] Last Admin: 11/15/18 10:19 Dose: 17 gm - Labs Labs: 08/22/18 06:11 08/22/18 06:11 - Constitutional Appears: Well, Non-toxic, No Acute Distress - Head Exam Head Exam: ATRAUMATIC, NORMOCEPHALIC - Extremities Exam Additional comments: Vasc: DP and PT pulses palpable b/l, skin temp warm to warm from distal to proximal on the right and wnl on the left; cap refill <3 seconds to all digits; mild edema noted b/l R>L Neuro: Protective sensation is grossly diminished b/l Derm: right: there is a superficial laceration with intact sutures on the right lower leg adjacent to the calf; there is evidence of hematoma formation immediately distal to the laceration site, no purulent drainage, No malodor; erythema has resolved about the leg, mild periwound erythema about suture site and hematoma left: Chronic wound that is stable and healed at the medial left ankle proximal to the malleolus, no other lesions present MSK: No pain on palpation to the laceration site or anywhere about the lower legs; no other gross pathology noted. - Neurological Exam Neurological Exam: Alert, Awake, Oriented x3 - Psychiatric Exam Psychiatric exam: Normal Affect, Normal Mood Assessment and Plan - Assessment and Plan (Free Text) Assessment: 82 yo female with right leg cellulitis and hematoma formation s/p superficial laceration Plan: Patient seen and evaluated at the bedside Discussed with Dr. Melendrez Charts and labs reviewed: VSS, afebrile, absent leukocytosis Left leg wound culture final - staph epidermidis Legs cleansed with sterile saline and lotion applied. Suture/hematoma site dressed with nystatin cream, adaptic, 4x4 and optifoam Continue abx per ID Wound care order for visiting nurse: - Clean right leg with normal sterile saline and apply silvercell NONSTICK and optifoam on top MWF - Left leg clean with normal sterile saline and apply silvercell and optifoam MWF - Tubigrip on b/l legs Podiatry will continue to follow up the patient while in house
[2018-08-22] MEDS: Prostat 15 g packet PO SCH ×2 (10:10→18:10)
[2018-08-22] MEDS: POLYETHYLENE GLYCOL 3350 17 GM/Dose PACKET PO SCH (10:59)
[2018-08-22] MEDS: Nystatin 100,000 Units/gm Topical Pow(15 gm) TOP SCH ×2 (11:01→18:07)
--- NOTE | 2018-08-22 12:45 | PN ---
DATE: 08/22/2018 SUBJECTIVE: I saw her sitting out of bed to chair. No fall since the other day. She is doing better with therapy. She is going to be going home tomorrow. She is happy about that. MEDICATIONS: She is on Cozaar, Ecotrin, Lasix, Lopressor, MiraLax, Neurontin, Norvasc, nystatin, Pro-Stat, Synthroid and Xanax. PHYSICAL EXAMINATION: VITAL SIGNS: 97.2 temperature, 68 pulse, 153/82 blood pressure, 20 respiratory rate and 96% O2 sat on room air. HEENT: Head is atraumatic, normocephalic. HEART: Regular rate. LUNGS: Clear to auscultation. ABDOMEN: Soft, obese, nontender. EXTREMITIES: Trace edema and they are wrapped up. She is doing very well with the legs. They were very swollen when she came in. LABORATORY DATA: She has 11.2 white count, 11.3 hemoglobin, 35.6 hematocrit with 323 platelets. Sodium 140, potassium 4.3. BUN is 28, creatinine is 1. GFR is 63, sugar is 98, calcium is 9.2, total bili is 0.3, AST is 29, ALT is 21, alk phos 89, total protein 6.9. ASSESSMENT AND PLAN: Overall, she is very well in the hospital, did well with physical therapy. She will be discharged tomorrow. I will see her on a house call on Saturday, that is my plan so for and I encouraged her to continue to eat well, participate in physical therapy and Jesus Ann DO [email or web address]
[2018-08-22 16:12] VITALS: TEMP 97.5
[2018-08-23] MEDS: Levothyroxine 50 MCG TAB PO SCH (06:02)
[2018-08-23] MEDS: Nystatin 100,000 Units/gm Topical Pow(15 gm) TOP SCH (09:01)
[2018-08-23] MEDS: POLYETHYLENE GLYCOL 3350 17 GM/Dose PACKET PO SCH (09:01)
[2018-08-23] MEDS: Prostat 15 g packet PO SCH (09:01)
[2018-08-23 09:02] VITALS: BP 155/70
--- NOTE | 2018-08-23 09:20 | CP.PCM.PN ---
Subjective - Date & Time of Evaluation Date of Evaluation: 08/23/18 (n) Time of Evaluation: :18 - Subjective Subjective: Podiatry progress note for Dr. Melendrez 82 yo female seen and evaluated at bedside. Seen resting comfortably. She denies N/V/F/C/SOB today. States she is being discharged today to home Objective - Vital Signs/Intake and Output Vital Signs (last 24 hours): Temp Pulse Resp BP Pulse Ox 97.5 F L 75 20 155/70 H 95 08/22/18 16:00 08/23/18 09:00 08/22/18 16:00 08/23/18 09:00 08/22/18 16:06 Intake and Output: 08/23/18 08/23/18 06:59 18:59 Intake Total 420 Output Total 200 Balance 220 - Medications Medications: Current Medications Alprazolam (Xanax) 1 mg PO DAILY [facility]; Protocol Stop: 08/23/18 10:01 Last Admin: 08/23/18 08:59 Dose: 1 mg Amino Acid Protein (Prostat 15 G Packet) 15 gm PO BID [facility] Last Admin: 08/23/18 09:01 Dose: Not Given Amlodipine Besylate (Norvasc) 5 mg PO DAILY [facility] Last Admin: 08/23/18 09:00 Dose: 5 mg Aspirin (Ecotrin) 81 mg PO 0800 [facility] Last Admin: 08/23/18 08:50 Dose: 81 mg Furosemide (Lasix) 20 mg IVP DAILY [facility] Last Admin: 08/23/18 09:00 Dose: 20 mg Gabapentin (Neurontin) 300 mg PO TID [facility]; Protocol Last Admin: 08/23/18 08:59 Dose: 300 mg Levothyroxine Sodium (Synthroid) 50 mcg PO 0630 [facility] Last Admin: 08/23/18 06:02 Dose: 50 mcg Losartan Potassium (Cozaar) 100 mg PO DAILY [facility] Last Admin: 08/23/18 09:00 Dose: 100 mg Metoprolol Tartrate (Lopressor) 100 mg PO DAILY [facility] Last Admin: 08/23/18 09:00 Dose: 100 mg Nystatin (Nystop Topical Powder) 0 gm TOP BID [facility]; Protocol Last Admin: 08/23/18 09:01 Dose: 1 applic Polyethylene Glycol (Miralax) 17 gm PO DAILY [facility] Last Admin: 08/23/18 09:01 Dose: Not Given - Labs Labs: 08/22/18 06:11 08/22/18 06:11 - Constitutional Appears: Well, Non-toxic, No Acute Distress - Head Exam Head Exam: ATRAUMATIC, NORMOCEPHALIC - Extremities Exam Additional comments: Vasc: DP and PT pulses palpable b/l, skin temp warm to warm from distal to proximal on the right and wnl on the left; cap refill <3 seconds to all digits; mild edema noted b/l R>L Neuro: Protective sensation is grossly diminished b/l Derm: right: there is a superficial laceration with intact sutures on the right lower leg adjacent to the calf; there is evidence of hematoma formation immediately distal to the laceration site, no purulent drainage, No malodor; erythema has resolved about the leg, mild periwound erythema about suture site and hematoma left: Chronic wound that is stable and healed at the medial left ankle proximal to the malleolus, no other lesions present MSK: No pain on palpation to the laceration site or anywhere about the lower legs; no other gross pathology noted. - Neurological Exam Neurological Exam: Alert, Awake, Oriented x3 - Psychiatric Exam Psychiatric exam: Normal Affect, Normal Mood Assessment and Plan - Assessment and Plan (Free Text) Assessment: 82 yo female with right leg cellulitis and hematoma formation s/p superficial laceration Plan: Patient seen and evaluated at the bedside Discussed with Dr. Melendrez Charts and labs reviewed: VSS, afebrile, absent leukocytosis Left leg wound culture final - staph epidermidis Sutures removed from the laceration site with sterile suture removal kit Legs cleansed with sterile saline and lotion applied. Suture/hematoma site dressed with maxord, adaptic, 4x4 and optifoam Continue abx per ID Wound care order for visiting nurse: - Clean right leg with normal sterile saline and apply silvercell NONSTICK and optifoam on top MWF - Left leg clean with normal sterile saline and apply silvercell and optifoam MWF - Tubigrip on b/l legs Podiatry will continue to follow up the patient while in house
--- NOTE | 2018-08-23 09:32 | DS ---
HISTORY OF PRESENT ILLNESS: She is resting comfortably in bed. She is going to be discharged today to home. She is off her antibiotics. She is walking better. She is happy that she is going home. She has sutures in her right leg. I asked the nurse to call Surgery to remove them today. MEDICATIONS: She is on Cozaar, Ecotrin, Lasix, Lopressor, MiraLax, Neurontin, Norvasc, nystatin, Pro-Stat, Synthroid and Xanax. PHYSICAL EXAMINATION: VITAL SIGNS: Her vital signs today are 97.5 temperature, 79 pulse, 163/91 blood pressure, 20 respiratory rate, 95% sat on room air. HEENT: Head is atraumatic, normocephalic. HEART: Regular rate. LUNGS: Clear to auscultation. ABDOMEN: Soft, obese, nontender. EXTREMITIES: Thinner, wrapped, doing better. LABORATORY DATA: She has 11.2 white count, 11.3 hemoglobin, 35.6 hematocrit with 323,000 platelets. 140 sodium, potassium 4.3, BUN 20, creatinine 1, GFR is 53, sugar is 98, calcium is 9.2, total bili is 0.3, AST is 29, ALT is 21, alk phos 89, total protein 6.9. Overall, I think she is doing quite well. She will be seen on the outpatient with Podiatry, I will being seeing on a house call on Saturday. They had to call me from the pharmacy today if they need any medications and she did quite well. She had bilateral cellulitis, weakness, CHF and she had a laceration with sutures and that the sutures should come out today and she should be discharged to home. Jesus Ann DO
--- NOTE | 2018-08-23 12:27 | CP.PCM.PN ---
Subjective - Date & Time of Evaluation Date of Evaluation: 08/23/18 Time of Evaluation: 09:35 - Subjective Subjective: Comfortable on a chair, no fevers, no pain in the legs. Objective - Vital Signs/Intake and Output Vital Signs (last 24 hours): Temp Pulse Resp BP Pulse Ox 97.5 F L 79 20 119/70 95 08/22/18 16:00 08/22/18 16:06 08/22/18 16:00 08/22/18 16:00 08/22/18 16:06 - Medications Medications: Current Medications Alprazolam (Xanax) 1 mg PO DAILY [facility]; Protocol Stop: 08/23/18 10:01 Last Admin: 08/22/18 11:05 Dose: 1 mg Amino Acid Protein (Prostat 15 G Packet) 15 gm PO BID [facility] Last Admin: 08/21/18 17:26 Dose: 15 gm Amlodipine Besylate (Norvasc) 5 mg PO DAILY [facility] Last Admin: 08/22/18 10:59 Dose: 5 mg Aspirin (Ecotrin) 81 mg PO 0800 [facility] Last Admin: 08/22/18 08:30 Dose: 81 mg Furosemide (Lasix) 20 mg IVP DAILY [facility] Last Admin: 08/22/18 11:32 Dose: 20 mg Gabapentin (Neurontin) 300 mg PO TID [facility]; Protocol Last Admin: 08/22/18 18:07 Dose: 300 mg Levothyroxine Sodium (Synthroid) 50 mcg PO 0630 [facility] Last Admin: 08/22/18 05:39 Dose: 50 mcg Losartan Potassium (Cozaar) 100 mg PO DAILY [facility] Last Admin: 08/22/18 10:57 Dose: 100 mg Metoprolol Tartrate (Lopressor) 100 mg PO DAILY [facility] Last Admin: 08/22/18 10:58 Dose: 100 mg Nystatin (Nystop Topical Powder) 0 gm TOP BID [facility]; Protocol Last Admin: 08/22/18 18:07 Dose: 1 applic Polyethylene Glycol (Miralax) 17 gm PO DAILY [facility] Last Admin: 08/22/18 10:59 Dose: Not Given - Labs Labs: 08/22/18 06:11 08/22/18 06:11 - Constitutional Appears: Chronically Ill - Head Exam Head Exam: NORMAL INSPECTION - Respiratory Exam Respiratory Exam: Decreased Breath Sounds - Cardiovascular Exam Cardiovascular Exam: +S1, +S2 - GI/Abdominal Exam GI & Abdominal Exam: Soft. absent: Tenderness - Extremities Exam Additional comments: right leg with dressings in place Assessment and Plan - Assessment and Plan (Free Text) Plan: Assessment right lower extremity skin and skin structure infection with chronic leg wound, S/P treatment with antibiotics HTN hypothyroidism chronic pedal edema Plan completed Vancoymcin and Cefepime and will continue to monitor clinically reviewed Podiatry recommendations
[2018-08-23 14:48] VITALS: PULSE 78; O2SAT 96
== END 2018-08-23 14:26 | disposition home or self-care (01) | DRG 603 ==
LOC: TRCU 16:19
PROVIDERS: ADMIT Family Medicine; ATTEND Family Medicine
PROC: F07Z9FZ Gait Training/Functional Ambulation Treatment using Assistive, Adaptive, Supportive or Protective Equipment (ICD-10-PCS; principal; 2018-08-16)
PROC: F07M6ZZ Therapeutic Exercise Treatment of Musculoskeletal System - Whole Body (ICD-10-PCS; 2018-08-16)
PROC: F08Z2ZZ Grooming/Personal Hygiene Treatment (ICD-10-PCS; 2018-08-16)
PROC: F08Z1ZZ Dressing Techniques Treatment (ICD-10-PCS; 2018-08-16)
DX: L03.115 Cellulitis of right lower limb (principal); L97.929 Non-pressure chronic ulcer of unspecified part of left lower leg with unspecified severity; L03.116 Cellulitis of left lower limb; E03.9 Hypothyroidism, unspecified; E78.00 Pure hypercholesterolemia, unspecified; E78.5 Hyperlipidemia, unspecified; I11.0 Hypertensive heart disease with heart failure; I50.9 Heart failure, unspecified; I83.029 Varicose veins of left lower extremity with ulcer of unspecified site; S81.819A Laceration without foreign body, unspecified lower leg, initial encounter; W19.XXXA Unspecified fall, initial encounter; Z82.49 Family history of ischemic heart disease and other diseases of the circulatory system